=== PATIENT | female | born 1970 | race Caucasian/White ===

== ENCOUNTER 2016-12-01 07:44 | Emergency (ER) | payer MEDICARE, OTHER ==
[~2016-12-01] VITALS: Ht 157.5 cm; Wt 78.0 kg
[~2016-12-01 07:44] MED LIST: ADVA115A PO; ALBU0.086 INH; ALBU8I INH; LISI-363 PO; LORA1TAB PO; PRED20 PO; PRIL20CA PO; SERT100 PO; ZITHTAB6 PO
[2016-12-01 07:52] VITALS: BP 162/91; PULSE 128; RESP 20; TEMP 97.5; O2SAT 93
[2016-12-01 07:55] VITALS: BP 138/93; PULSE 120; RESP 25; TEMP 98; O2SAT 94
[2016-12-01] MEDS ORDERED: ALBU0.63 NEB (08:08)
[2016-12-01] MEDS ORDERED: PRIL10CA PO (08:08)
--- NOTE | 2016-12-01 08:11 | PD ---
HPI Chief Complaint: Respiratory Distress Time Seen by Provider: 08:08 Travel History International Travel<30 days: No Contact w/Intl Traveler<30days: No Traveled to known affect area: No History of Present Illness HPI This is a 46-year-old female with a history of COPD who presents to the emergency department with increasing shortness of breath for 2-3 days, constant , moderate severity associated with yellow sputum production and rhinorrhea. She denies any fevers or chills. She did use her albuterol at 6 AM but she's not feeling any better. She says she's been in the ICU in the past for her COPD but never on a ventilator. She uses oxygen intermittently when she feels sick at home. [facility] Past Medical History Anxiety: Yes Depression: Yes Cardiovascular Problems: Yes COPD: Yes Cerebrovascular Accident: Yes (pt states "right side def. and shaking, it was 20 years ago") Hypertension: Yes Respiratory: Yes (COPD) Immunizations Current: No ?: Unknown LMP: 11/24/16 : 3 Para: 3 Miscarriage: 0 : 0 Past Surgical History Cholecystectomy: Yes Other Surgery: Yes (hernia repair) Social History Alcohol Use: Yes (weekends 4 tallboys.) Tobacco Use: Yes (12/01 PPD) Substance Use: No Allergies-Medications (Allergen,Severity, Reaction): Coded Allergies: Levaquin (Verified Allergy, Severe, Anaphylaxis, 12/01/16) Reported Meds & Prescriptions Reported Meds & Active Scripts Active Reported Prilosec (Omeprazole) 10 Mg Cap 10 Mg PO DAILY Albuterol Neb (Albuterol Sulfate) 0.63 Mg/3 Ml Neb 0.63 Mg NEB Q4HR NEB PRN Review of Systems Except as stated in HPI: all other systems reviewed are Neg Physical Exam Narrative GENERAL:Well appearing, no acute distress SKIN: Warm and dry. HEAD: Atraumatic. Normocephalic. EYES: Pupils equal and round. No injection or drainage. ENT: Moist mucous membranes NECK: Trachea midline. CARDIOVASCULAR: Tachycardic. No murmur appreciated. RESPIRATORY: Diffusely wheezing, no accessory muscle use. Speaking full sentences. GASTROINTESTINAL: Abdomen soft, non-tender, nondistended. MUSCULOSKELETAL: No obvious deformities. NEUROLOGICAL: Awake and alert. No obvious cranial nerve deficits. Moving all extremities.. PSYCHIATRIC: Appropriate mood and affect; insight and judgment normal. Data Data Last Documented VS Vital Signs Date Time Temp Pulse Resp B/P Pulse Ox O2 Delivery O2 Flow Rate FiO2 12/01/16 07:55 98.0 120 25 138/93 94 12/01/16 07:55 Room Air Orders Prednisone (Deltasone) (12/01/16 08:15) Albuterol Neb (Albuterol Neb) (12/01/16 08:15) Influenzae A/B Antigen (12/01/16 08:09) MDM Medical Decision Making Medical Screen Exam Complete: Yes Emergency Medical Condition: Yes Interpretation(s) Afebrile, tachycardic, tachypneic, no hypoxia Differential Diagnosis COPD exacerbation, viral syndrome, pneumonia Narrative Course This is a 46-year-old female who presents to the emergency department with wheezing, rhinorrhea and productive cough. She has a history of oxygen- dependent COPD. She is placed on a monitor and administer and serial albuterol treatments and prednisone. She feels a little bit better. Her oxygen saturation is normal on room air. She is not complaining of any chest pain to suggest pulmonary embolism or pneumonia. I Think she is safe for discharge with treatment for COPD exacerbation. I urged her that if she feels worse throughout the day she should return to the emergency room. Diagnosis Primary Impression: Acute exacerbation of COPD with asthma Patient Instructions: General Instructions Additional Instructions: If you develop severe shortness of breath, chest pain, or difficulty breathing return to the emergency department. Use albuterol every 4 hours for the next 2 days. Then use as needed for wheezing. Complete your course of steroids. Complete your course of antibiotics. Follow up with your primary care physician in 2-3 days if your symptoms have not improved. Med/Other Pt SpecificInfo: Prescription(s) given Scripts Azithromycin (Zithromax Z-Bari)250 Mg [id number] Mg PO DIRECTED #1 DSPK Ref 0 500 MG (2 tabs) day 1, then 1 tab days 2-5. Prov:Yulia Torre MD 12/01/16 Albuterol Neb 2.5 Mg/3 Ml Neb2.5 Mg NEB Q4HR NEB PRN (SHORTNESS OF BREATH) #60 NEBULE Ref 0 Prov:Yulia Torre MD 12/01/16 Prednisone 20 Mg Tab40 Mg PO DAILY 4 Days Prov:Yulia Torre MD 12/01/16 Disposition: 01 DISCHARGE HOME Condition: Stable Yulia Torre MD Dec 01, 2016 08:11
[2016-12-01] MEDS ORDERED: predniSONE 50 MG TAB PO ONE (08:15)
[2016-12-01] MEDS: RESP: ALBUTEROL 2.5 MG/3 ML NEB (SCH) INH ×2 (08:24→08:25)
[2016-12-01 08:40] VITALS: BP 129/72; PULSE 106; RESP 16; O2SAT 97
[2016-12-01] MEDS ORDERED: ALBU0.08 NEB (09:25)
[2016-12-01] MEDS ORDERED: PRED20 PO (09:25)
[2016-12-01] MEDS ORDERED: ZITHTAB PO (09:25)
[2016-12-01] MEDS ORDERED: PROM6.256 PO (09:27)
[2016-12-01 09:40] VITALS: BP 138/73
== END 2016-12-01 09:46 | disposition home or self-care (01) ==
LOC: NEPC 07:44
DX: J44.1 Chronic obstructive pulmonary disease with (acute) exacerbation (principal); I10 Essential (primary) hypertension; F17.210 Nicotine dependence, cigarettes, uncomplicated
CPT/HCPCS: 87804; 94664; 99284; J7512; J7613

== ENCOUNTER 2017-04-04 00:13 | Emergency (ER) | payer MEDICARE, OTHER ==
[~2017-04-04] VITALS: Ht 157.5 cm; Wt 78.0 kg
[~2017-04-04 00:13] MED LIST changes: -ADVA115A PO; +ALBU0.08 NEB; -ALBU0.086 INH; +ALBU0.63 NEB; -ALBU8I INH; -LISI-363 PO; -LORA1TAB PO; +PRIL10CA PO; -PRIL20CA PO; +PROM6.256 PO; -SERT100 PO; +ZITHTAB PO; -ZITHTAB6 PO
[2017-04-04 00:20] VITALS: BP 184/74; PULSE 101; RESP 18; TEMP 98.4; O2SAT 97
[2017-04-04] MEDS ORDERED: OMEP40CA2 PO (00:29)
[2017-04-04] MEDS ORDERED: RESP: ALBUTEROL 2.5 MG/3 ML NEB (SCH) INH ONE (00:30)
[2017-04-04] MEDS ORDERED: SODIUM CHLOR 0.9% 1000 ML INJ 1,000 ML IV ONE (00:30)
--- NOTE | 2017-04-04 00:32 | PD ---
HPI Chief Complaint: Psychiatric Symptoms Time Seen by Provider: 00:18 Travel History International Travel<30 days: No Contact w/Intl Traveler<30days: No Traveled to known affect area: No History of Present Illness HPI 47-year-old female Patient arrives to the ER via EMS. She drank alcohol tonight. She argued with her family members. Police were called and on scene the patient verbalized suicidal ideation. She does not recall exactly how much she drank tonight however reports "a lot." In the ER she complains of shortness of breath. She has COPD and smokes and uses oxygen at home 2 L as needed. Police report similar prior episodes with the patient. EMS notes she had no complaint of dyspnea until time of arrival to ER room. [facility], [facility] Past Medical History Anxiety: Yes Depression: Yes Cardiovascular Problems: Yes COPD: Yes Cerebrovascular Accident: Yes (pt states "right side def. and shaking, it was 20 years ago") Hypertension: Yes Respiratory: Yes (COPD) Immunizations Current: No Influenza Vaccination: No ?: Not : 3 Para: 3 Miscarriage: 0 : 0 Tubal Ligation: Yes Past Surgical History Cholecystectomy: Yes Other Surgery: Yes (hernia repair) Social History Alcohol Use: Yes Tobacco Use: Yes (1/2 PPD) Substance Use: No Allergies-Medications (Allergen,Severity, Reaction): Coded Allergies: Levaquin (Verified Allergy, Severe, Anaphylaxis, 04/04/17) Reported Meds & Prescriptions Reported Meds & Active Scripts Active Albuterol Neb (Albuterol Sulfate) 2.5 Mg/3 Ml Neb 2.5 Mg NEB Q4HR NEB PRN Reported Omeprazole 40 Mg Cap 40 Mg PO DAILY Review of Systems ROS Limitations: Intoxication Physical Exam Narrative GENERAL: 47-year-old female EtOH on breath speaking full sentences SKIN: Focused skin assessment warm/dry. HEAD: Atraumatic. Normocephalic. EYES: Pupils equal and round. No scleral icterus. No injection or drainage. ENT: No nasal bleeding or discharge. Mucous membranes pink and moist. NECK: Trachea midline. No JVD. CARDIOVASCULAR: Tachycardia. Regular. RESPIRATORY: Trace wheezing. Speaking full sentences. GASTROINTESTINAL: Abdomen soft, non-tender, nondistended. Hepatic and splenic margins not palpable. MUSCULOSKELETAL: No obvious deformities. No clubbing. No cyanosis. No edema. NEUROLOGICAL: Awake and alert. No obvious cranial nerve deficits. Motor grossly within normal limits. Normal speech. PSYCHIATRIC: Patient is a Lazo act having verbalized suicidal ideation. She is cooperative w my exam with an alcohol intoxication affect. Data Data Last Documented VS Vital Signs Date Time Temp Pulse Resp B/P Pulse Ox O2 Delivery O2 Flow Rate FiO2 04/04/17 00:30 Nasal Cannula 2 97 04/04/17 00:20 98.4 101 18 184/74 97 Vital signs reviewed Orders Complete Blood Count With Diff (04/04/17:) Comprehensive Metabolic Panel (04/04/17:) Oximetry (04/04/17:) Iv Access Insert/Monitor (04/04/17:) Ecg Monitoring (04/04/17) Oxygen Administration (04/04/17) Psych Screen (04/04/17:) Drug Screen, Random Urine (04/04/17:) Alcohol (Ethanol) (04/04/17:) Tylenol (Acetaminophen) (04/04/17:) Chest, Single Ap (04/04/17:27) Albuterol Neb (Albuterol Neb) (04/04/17 00:30) Sodium Chlor 0.9% 1000 Ml Inj (Ns 1000 M (04/04/17 00:30) Prednisone (Deltasone) (04/04/17 01:30) Albuterol-Ipratropium Neb (Duoneb Neb) (04/04/17 01:30) Diet Regular Basic (04/04/17 Breakfast) Labs Laboratory Tests Test 04/04/17 00:30 White Blood Count 12.1 TH/MM3 Red Blood Count 5.08 MIL/MM3 Hemoglobin 11.5 GM/DL Hematocrit 36.5 % Mean Corpuscular Volume 72.0 FL Mean Corpuscular Hemoglobin 22.6 PG Mean Corpuscular Hemoglobin 31.4 % Concent Red Cell Distribution Width 18.5 % Platelet Count 323 TH/MM3 Mean Platelet Volume 7.7 FL Neutrophils (%) (Auto) 51.3 % Lymphocytes (%) (Auto) 41.5 % Monocytes (%) (Auto) 5.8 % Eosinophils (%) (Auto) 0.3 % Basophils (%) (Auto) 1.1 % Neutrophils # (Auto) 6.2 TH/MM3 Lymphocytes # (Auto) 5.0 TH/MM3 Monocytes # (Auto) 0.7 TH/MM3 Eosinophils # (Auto) 0.0 TH/MM3 Basophils # (Auto) 0.1 TH/MM3 CBC Comment AUTO DIFF Differential Comment AUTO DIFF CONFIRMED Platelet Estimate NORMAL Platelet Morphology Comment NORMAL Target Cells 1+ Sodium Level 135 MEQ/L Potassium Level 4.0 MEQ/L Chloride Level 97 MEQ/L Carbon Dioxide Level 24.7 MEQ/L Anion Gap 13 MEQ/L Blood Urea Nitrogen 5 MG/DL Creatinine 0.69 MG/DL Estimat Glomerular Filtration 92 ML/MIN Rate Random Glucose 96 MG/DL Calcium Level 9.1 MG/DL Total Bilirubin 0.2 MG/DL Aspartate Amino Transf 29 U/L (AST/SGOT) Alanine Aminotransferase 25 U/L (ALT/SGPT) Alkaline Phosphatase 108 U/L Total Protein 7.5 GM/DL Albumin 3.5 GM/DL Urine Opiates Screen NEG Acetaminophen Level LESS THAN 2.0 MCG/ML Urine Barbiturates Screen NEG Urine Amphetamines Screen NEG Urine Benzodiazepines Screen NEG Urine Cocaine Screen NEG Urine Cannabinoids Screen NEG Ethyl Alcohol Level 376 MG/DL [facility] Medical Decision Making Medical Screen Exam Complete: Yes Emergency Medical Condition: Yes Medical Record Reviewed: Yes Differential Diagnosis Altered mental status/psychosis due to infection/environmental exposure/ metabolic abnormality, polypharmacy, alcohol abuse/intoxication, illicit or prescribed drug abuse, malingering/secondary gain, non-organic psychiatric disease, COPD, pneumonia Narrative Course Routine psychiatry screen bloodwork pending at time of dictation. One albuterol treatment ordered for fairly mild dyspnea w hx COPD. O2 NC started. CXR pending. Likely should improve after 1 neb. CBC & BMP Diagram 04/04/17 00:30 Last 24 hours Impressions Chest X-Ray 04/04/17 0027 Signed Impressions: Service Date/Time: Tuesday, April 04, 2017 00:48 - CONCLUSION: No acute disease. Elier Artis MD Alcohol level is about 330 Drug screen negative Tylenol since late negative The history of present illness, ROS, physical exam, review of records and medical workup performed for today's visit have reasonably safely excluded organic etiologies for the patient's presenting complaint. We will continue to monitor the patient carefully in the ER until time of evaluation by the psychiatry service. We are available for any additional medical assistance if needed during the patient's ER course. Disposition per discretion of psychiatry is appreciated. Diagnosis Primary Impression: Suicidal ideation Additional Impression: Alcohol intoxication Qualified Code: F10.929 - Alcohol intoxication, with unspecified complication Guillermo Rubin MD April 04, 2017 00:32
[2017-04-04 00:57] LABS: AUTOMATED NEUTROPHIL # 6.2 TH/MM3 (1.8-7.7); BASOPHIL # 0.1 TH/MM3 (0-0.2); BASOPHIL % 1.1 % (0.0-2.0); EOSINOPHIL % 0.3 % (0.0-4.0); HEMATOCRIT 36.5 % (35.0-46.0); LYMPH % 41.5 % (9.0-44.0); MEAN CORPUSCULAR HEMOGLOBIN 22.6 PG (27.0-34.0); MEAN CORPUSCULAR HGB CONC 31.4 % (32.0-36.0); MONO % 5.8 % (0.0-8.0); NEUT % 51.3 % (16.0-70.0); PLATELET COUNT 323 TH/MM3 (150-450); RED BLOOD COUNT 5.08 MIL/MM3 (4.00-5.30); RED CELL DISTRIBUTION WIDTH 18.5 % (11.6-17.2); WHITE BLOOD COUNT 12.1 TH/MM3 (4.0-11.0)
[2017-04-04 01:03] LABS: AMPHETAMINE, URINE NEG (NEG); BARBITURATES, URINE NEG (NEG); COCAINE, URINE NEG (NEG)
[2017-04-04 01:13] LABS: HEMO FLAGS AUTO DIFF
[2017-04-04 01:14] LABS: ALT (GPT) 25 U/L (10-53); ANION GAP 13 MEQ/L (5-15); AST (GOT) 29 U/L (15-37); BICARBONATE 24.7 MEQ/L (21.0-32.0); BLOOD UREA NITROGEN 5 MG/DL (7-18); CHLORIDE 97 MEQ/L (98-107); GLOMERULAR FILTRATION RATE 92 ML/MIN (>89); SODIUM (NA) 135 MEQ/L (136-145)
[2017-04-04 01:16] LABS: ACETAMINOPHEN LESS THAN 2.0 MCG/ML (10.0-30.0); ALKALINE PHOSPHATASE 108 U/L (45-117); TOTAL BILIRUBIN ADULT 0.2 MG/DL (0.2-1.0)
--- NOTE | 2017-04-04 01:17 | RADRPT ---
EXAM DATE/TIME: 04/04/2017 00:48 [facility] COMPARISON: CHEST SINGLE AP, September 14, 2016, 18:19. INDICATIONS : Patient states cough. MEDICAL HISTORY : Chronic obstructive pulmonary disease. Stroke SURGICAL HISTORY : None. ENCOUNTER: Initial ACUITY: 1 day PAIN SCORE: 0/10 LOCATION: Bilateral chest FINDINGS: A single view of the chest demonstrates the lungs to be symmetrically aerated without evidence of mas s, infiltrate or effusion. The cardiomediastinal contours are unremarkable. Osseous structures are intact. CONCLUSION: No acute disease. Elier Artis MD on April 04, 2017 at 1:15 Board Certified Radiologist. This report was verified electronically.
[2017-04-04] MEDS ORDERED: predniSONE 20 MG TAB PO ONE (01:30)
[2017-04-04] MEDS ORDERED: RESP: ALBUTEROL 2.5 MG/IPRATROPIUM 0.5 MG NEB (SCH) INH ONE (01:30)
[2017-04-04 01:40] LABS: PLATELET ESTIMATE SMEAR NORMAL (NORMAL); PLATELET MORPHOLOGY NORMAL (NORMAL); SCAN/DIFF AUTO DIFF CONFIRMED; TARGET CELLS 1+ (NORMAL)
--- NOTE | 2017-04-04 11:55 | MB ---
cc: JAMIE MAURICE DATE OF CONSULTATION: 04/04/2017 PHYSICIAN REQUESTING CONSULTATION Emergency department REASON FOR CONSULTATION Lazo Act. HISTORY OF PRESENT ILLNESS Ms. Fox is a 47-year-old female with a reported history of anxiety and depression who presents under a Lazo Act after allegedly making suicidal statements in the setting of alcohol intoxication. The patient's alcohol level on presentation here was 376. Reviewing the electronic medical record, I see that the patient was seen in consultation by the psychiatric nurse practitioner in July of 2016 under similar circumstances and the Lazo Act was lifted at that time. The patient seen and examined. Chart reviewed. Case discussed with nurse in the [facility]. On my examination this morning the patient is clinically sober. She denies any suicidal or homicidal ideation, intent or plan. She reports that she was arguing with her daughter's boyfriend with whom she lives about the electric bill. They were both drinking and the argument escalated. She tells me that she said "I would rather be than deal with this fucking bullshit." She denies that this was a genuine suicidal threat. She denies suicidal ideation now as I said. She does report a history of anxiety and depression and reports that her anxiety level has been fairly high lately although her mood has not been terribly unstable. She reports that she is sleeping and eating well. No hopeless or worthless feelings. No anhedonia. No homicidal ideation. Wants to live for her daughters and grandson. Denies any audiovisual hallucinations and I can elicit no delusional beliefs. She is future oriented. Remainder of the psychiatric ROS is negative. The patient is requesting discharge from the emergency room this morning. PAST PSYCHIATRIC HISTORY Diagnosis of anxiety and depression. Not under the care of a psychiatrist. Denies a history of psychiatric admissions or suicide attempts. FAMILY HISTORY The patient denies any family history of suicide. Reports depression and anxiety in her mother and father. CHEMICAL DEPENDENCY HISTORY The patient reports daily alcohol use. She drinks a four-pack of tallboys daily. Denies any history of DTs or seizures. No other substance use. She is not interested in detoxification or rehabilitation services at this time. SOCIAL HISTORY She is with three children and one grandson. Twelfth grade education. Disabled. Denies any or legal history. Denies any access to guns or firearms. PAST MEDICAL HISTORY See electronic medical record. REVIEW OF SYSTEMS No reported physical complaints. PHYSICAL EXAMINATION VITAL SIGNS: Temperature is 98.4, pulse 101, respirations 18, blood pressure 184/74, pulse oximetry 97%. Physical exam completed by the ED provider. On my examination today, the patient appears to be in no acute physical distress. No signs of withdrawal noted. She is clinically sober. LABORATORIES Reviewed. MENTAL STATUS EXAMINATION The patient is in a hospital gown. She is well-groomed. She is awake, alert and oriented x3. No abnormal motor movements noted. No evidence of delirium. Speech is within normal limits for rate, tone and volume. Language and fund of knowledge seem average. Mood is fair but anxious and affect is full and reactive. Thought process linear. No loosening of associations. No evident delusions. Denies audiovisual hallucinations. Denies suicidal or homicidal ideation. Insight and judgment are fair at best. ASSESSMENT AND PLAN 1. Alcohol dependence with intoxication, intoxication resolved, F10.220. This is a 47-year-old female with psychiatric history as detailed above who presents under a Lazo Act after making suicidal statements in the setting of intoxication while arguing with her daughter's boyfriend. On my examination this morning the patient is clinically sober. She denies suicidal or homicidal ideation. Appears to be attending to her basic needs. No evidence of any severely unstable mood, anxiety or psychotic disorder in this patient at this time. The patient is not interested in detoxification services. The main issue at this point seems to be substance related. The patient does not meet Lazo Act criteria after weighing relevant factors. Lift the Lazo Act. I have counseled the patient to pursue chemical dependency evaluation and treatment. I have counseled the patient regarding warning signs for need to return to the psychiatric emergency room as part of a general safety plan. The patient is otherwise psychiatrically clear for discharge from the ED. Thank you very much for this consultation. Jamie ESCALANTE 8:24 AM 11:30 AM [facility]
== END 2017-04-04 10:57 | disposition home or self-care (01) ==
LOC: NEPD 00:13
DX: R45.851 Suicidal ideations (principal); F10.129 Alcohol abuse with intoxication, unspecified; R06.02 Shortness of breath; J44.9 Chronic obstructive pulmonary disease, unspecified; I10 Essential (primary) hypertension; F17.210 Nicotine dependence, cigarettes, uncomplicated
CPT/HCPCS: 71010; 80053; 80307; 85025; 94640; 94664; 96360; 99285; J7030; J7512; J7613

== ENCOUNTER 2017-06-13 05:49 | Emergency (ER) | payer MEDICARE, OTHER ==
[~2017-06-13 05:49] MED LIST changes: -ALBU0.63 NEB; +OMEP40CA2 PO; -PRED20 PO; -PRIL10CA PO; -PROM6.256 PO; -ZITHTAB PO
[2017-06-13 05:51] VITALS: BP 169/106; PULSE 120; RESP 18; TEMP 98.8; O2SAT 95
--- NOTE | 2017-06-13 06:11 | PD ---
HPI Chief Complaint: Respiratory Symptoms Time Seen by Provider: 05:58 Travel History International Travel<30 days: No Contact w/Intl Traveler<30days: No Traveled to known affect area: No History of Present Illness HPI 47-year-old female states that she's been having nonbloody vomiting and diarrhea with shortness of breath, sore throat, nasal congestion, earache and fever over the past couple days. She states her fever was 102. She states she took Motrin shortly prior to arrival. She states she is out of her blood pressure medication and inhalers. She states she lost her primary. She feels worse when she moves around. She denies any other modifying factors. She denies any other concurrent complaints. She notes multiple episodes of emesis and diarrhea. [facility] Past Medical History Narrative Medical By records Anxiety: Yes Depression: Yes Cardiovascular Problems: Yes COPD: Yes Cerebrovascular Accident: Yes (pt states "right side def. and shaking, it was 20 years ago") Hypertension: Yes Respiratory: Yes (COPD) Immunizations Current: No ?: Not LMP: 05/19/17 : 3 Para: 3 Miscarriage: 0 : 0 Tubal Ligation: Yes Past Surgical History Narrative Surgical By records Cholecystectomy: Yes Other Surgery: Yes (hernia repair) Social History Narrative Social History By records Alcohol Use: Yes (rare) Tobacco Use: Yes (1/2 PPD) Substance Use: No Allergies-Medications (Allergen,Severity, Reaction): Coded Allergies: Levaquin (Verified Allergy, Severe, Anaphylaxis, 06/13/17) Reported Meds & Prescriptions Reported Meds & Active Scripts Active Albuterol Neb (Albuterol Sulfate) 2.5 Mg/3 Ml Neb 2.5 Mg NEB Q4HR NEB PRN Reported Omeprazole 40 Mg Cap 40 Mg PO DAILY Review of Systems Except as stated in HPI: all other systems reviewed are Neg Physical Exam Narrative General: No apparent distress, well appearing ENT: mmm, external auditory canals are normal. Left TM with erythema Neck: Neck is supple, no meningeal signs, trachea is midline Cardiovascular: Regular rate and rhythm Lungs: No increased respiratory effort noted, expiratory wheezing bilaterally Abdomen: Soft, NT, ND, no rebound or guarding Extremities: No edema Neuro: Awake, motor and sensation grossly intact, normal speech Data Data Last Documented VS Vital Signs Date Time Temp Pulse Resp B/P Pulse Ox O2 Delivery O2 Flow Rate FiO2 06/13/17 06:01 20 94 Room Air 06/13/17 05:51 98.8 120 169/106 Orders Complete Blood Count With Diff (06/13/17 06:02) Basic Metabolic Panel (Bmp) (06/13/17 06:02) Magnesium (Mg) (06/13/17 06:02) Influenzae A/B Antigen (06/13/17 06:02) Iv Access Insert/Monitor (06/13/17 06:02) Ecg Monitoring (06/13/17 06:02) Oximetry (06/13/17 06:02) Chest, Pa & Lat (06/13/17 06:02) Sodium Chloride 0.9% Flush (Ns Flush) (06/13/17 06:15) Methylprednisolone So Succ Inj (Solumedr (06/13/17 06:15) Albuterol-Ipratropium Neb (Duoneb Neb) (06/13/17 06:15) Sodium Chlor 0.9% 1000 Ml Inj (Ns 1000 M (06/13/17 06:15) Ondansetron Inj (Zofran Inj) (06/13/17 06:15) Lactic Acid (06/13/17 06:02) Potassium Chloride Eff (K-Lyte Cl Eff) (06/13/17 07:00) Labs Laboratory Tests Test 06/13/17 06/13/17 06:09 06:36 White Blood Count 14.2 TH/MM3 Red Blood Count 4.98 MIL/MM3 Hemoglobin 11.2 GM/DL Hematocrit 35.4 % Mean Corpuscular Volume 71.1 FL Mean Corpuscular Hemoglobin 22.5 PG Mean Corpuscular Hemoglobin 31.7 % Concent Red Cell Distribution Width 16.9 % Platelet Count 276 TH/MM3 Mean Platelet Volume 8.1 FL Neutrophils (%) (Auto) 66.3 % Lymphocytes (%) (Auto) 25.7 % Monocytes (%) (Auto) 6.8 % Eosinophils (%) (Auto) 0.6 % Basophils (%) (Auto) 0.6 % Neutrophils # (Auto) 9.4 TH/MM3 Lymphocytes # (Auto) 3.6 TH/MM3 Monocytes # (Auto) 1.0 TH/MM3 Eosinophils # (Auto) 0.1 TH/MM3 Basophils # (Auto) 0.1 TH/MM3 CBC Comment DIFF FINAL Differential Comment Sodium Level 134 MEQ/L Potassium Level 3.1 MEQ/L Chloride Level 98 MEQ/L Carbon Dioxide Level 23.6 MEQ/L Anion Gap 12 MEQ/L Blood Urea Nitrogen 6 MG/DL Creatinine 0.84 MG/DL Estimat Glomerular Filtration 73 ML/MIN Rate Random Glucose 100 MG/DL Calcium Level 9.0 MG/DL Magnesium Level 1.5 MG/DL Lactic Acid Level 1.7 mmol/L MDM Medical Decision Making Medical Screen Exam Complete: Yes Emergency Medical Condition: Yes Medical Record Reviewed: Yes (past history confirmed) Differential Diagnosis COPD exacerbation, renal failure, electrolyte abnormality, influenza, pneumonia Narrative Course Will check blood work, chest x-ray, influenza and dose with DuoNeb's, Solu- Medrol, Zofran and IV fluids and reevaluate Physician Communication Physician Communication dr baird to follow labs and reeval Penelope Ribeiro MD Jun 13, 2017 06:11
[2017-06-13] MEDS ORDERED: SODIUM CHLORIDE 0.9% FLUSH 10 ML FLUSH IVF PRN (06:15)
[2017-06-13] MEDS ORDERED: ONDANSETRON HCL 4 MG/2 ML VIAL IV PUSH ONE (06:15)
[2017-06-13] MEDS ORDERED: methylPREDNISolone SOD SUCC 125 MG/2 ML VIAL IVP ONE (06:15)
[2017-06-13] MEDS ORDERED: SODIUM CHLOR 0.9% 1000 ML INJ 1,000 ML IV ONE (06:15)
[2017-06-13] MEDS: RESP: ALBUTEROL 2.5 MG/IPRATROPIUM 0.5 MG NEB (SCH) INH ×2 (06:21→06:22)
[2017-06-13 06:31] LABS: AUTOMATED NEUTROPHIL # 9.4 TH/MM3 (1.8-7.7); BASOPHIL # 0.1 TH/MM3 (0-0.2); BASOPHIL % 0.6 % (0.0-2.0); EOSINOPHIL # 0.1 TH/MM3 (0-0.4); EOSINOPHIL % 0.6 % (0.0-4.0); HEMATOCRIT 35.4 % (35.0-46.0); HEMO FLAGS DIFF FINAL; LYMPH % 25.7 % (9.0-44.0); LYMPHOCYTE # 3.6 TH/MM3 (1.0-4.8); MEAN CELL VOLUME 71.1 FL (80.0-100.0); MEAN CORPUSCULAR HEMOGLOBIN 22.5 PG (27.0-34.0); MEAN CORPUSCULAR HGB CONC 31.7 % (32.0-36.0); MONO % 6.8 % (0.0-8.0); NEUT % 66.3 % (16.0-70.0); PLATELET COUNT 276 TH/MM3 (150-450); RED BLOOD COUNT 4.98 MIL/MM3 (4.00-5.30); RED CELL DISTRIBUTION WIDTH 16.9 % (11.6-17.2); WHITE BLOOD COUNT 14.2 TH/MM3 (4.0-11.0)
--- NOTE | 2017-06-13 06:36 | RADRPT ---
EXAM DATE/TIME: 06/13/2017 06:16 [facility] COMPARISON: CHEST SINGLE AP, April 04, 2017, 0:48. INDICATIONS : Shortness of breath. MEDICAL HISTORY : Chronic obstructive pulmonary disease. Hypertension SURGICAL HISTORY : None. ENCOUNTER: Initial ACUITY: 1 day PAIN SCORE: 0/10 LOCATION: Bilateral chest FINDINGS: PA and lateral views of the chest demonstrate the lungs to be symmetrically aerated without evidence of mass, infiltrate or effusion. The cardiomediastinal contours are unremarkable. Osseous structure s are intact. CONCLUSION: No acute disease. Kobe Willis MD on June 13, 2017 at 6:35 Board Certified Radiologist. This report was verified electronically.
[2017-06-13 06:55] LABS: BICARBONATE 23.6 MEQ/L (21.0-32.0); MAGNESIUM 1.5 MG/DL (1.5-2.5); POTASSIUM 3.1 MEQ/L (3.5-5.1)
[2017-06-13 07:00] VITALS: O2SAT 88
[2017-06-13] MEDS ORDERED: POTASSIUM CHLORIDE 25 MEQ EFFERVESCENT TAB PO ONE (07:00)
[2017-06-13] MEDS ORDERED: PRED50 PO (09:44)
[2017-06-13] MEDS ORDERED: ZITHTAB PO (09:44)
[2017-06-13] MEDS ORDERED: ALBU6.7H INH (09:44)
--- NOTE | 2017-06-13 09:44 | PD ---
Physical Exam Date Seen by Provider: Jun 13, 2017 Time Seen by Provider: 07:00 Narrative Patient initially seen by Dr. Ribeiro, please see Dr. Ribeiro's note for further information. Awaiting workup. Laboratory Tests Test 06/13/17 06:09 White Blood Count 14.2 TH/MM3 (4.0-11.0) Hemoglobin 11.2 GM/DL (11.6-15.3) Mean Corpuscular Volume 71.1 FL (80.0-100.0) Mean Corpuscular Hemoglobin 22.5 PG (27.0-34.0) Mean Corpuscular Hemoglobin 31.7 % Concent (32.0-36.0) Neutrophils # (Auto) 9.4 TH/MM3 (1.8-7.7) Monocytes # (Auto) 1.0 TH/MM3 (0-0.9) Sodium Level 134 MEQ/L (136-145) Potassium Level 3.1 MEQ/L (3.5-5.1) Blood Urea Nitrogen 6 MG/DL (7-18) Estimat Glomerular Filtration 73 ML/MIN (>89) Rate Last 24 hours Impressions Chest X-Ray 06/13/17 0602 Signed Impressions: Service Date/Time: Tuesday, June 13, 2017 06:16 - CONCLUSION: No acute disease. Kobe Willis MD Chest x-ray did not show any signs of obvious acute pulmonary processes. Lab work shows a white count of 14. On reevaluation at 9:30 AM, the patient is feeling improved and have talked her about findings and have offered to admit her to the hospital as an observation versus outpatient therapy. Patient states that she is feeling much improved and would prefer outpatient therapy at this point. She states that she had ran out of her nebulizers at home. My plan would be to refill her nebulizers and have her follow-up with primary care physician. Return for worsening in symptoms as necessary. The plan has been discussed with her and she states understanding. Data Data Last Documented VS Vital Signs Date Time Temp Pulse Resp B/P Pulse Ox O2 Delivery O2 Flow Rate FiO2 06/13/17 07:00 88 Room Air 06/13/17 06:01 20 06/13/17 05:51 98.8 120 169/106 Orders Complete Blood Count With Diff (06/13/17 06:02) Basic Metabolic Panel (Bmp) (06/13/17 06:02) Magnesium (Mg) (06/13/17 06:02) Influenzae A/B Antigen (06/13/17 06:02) Iv Access Insert/Monitor (06/13/17 06:02) Ecg Monitoring (06/13/17 06:02) Oximetry (06/13/17 06:02) Chest, Pa & Lat (06/13/17 06:02) Sodium Chloride 0.9% Flush (Ns Flush) (06/13/17 06:15) Methylprednisolone So Succ Inj (Solumedr (06/13/17 06:15) Albuterol-Ipratropium Neb (Duoneb Neb) (06/13/17 06:15) Sodium Chlor 0.9% 1000 Ml Inj (Ns 1000 M (06/13/17 06:15) Ondansetron Inj (Zofran Inj) (06/13/17 06:15) Lactic Acid (06/13/17 06:02) Potassium Chloride Eff (K-Lyte Cl Eff) (06/13/17 07:00) Labs Laboratory Tests Test 06/13/17 06/13/17 06:09 06:36 White Blood Count 14.2 TH/MM3 Red Blood Count 4.98 MIL/MM3 Hemoglobin 11.2 GM/DL Hematocrit 35.4 % Mean Corpuscular Volume 71.1 FL Mean Corpuscular Hemoglobin 22.5 PG Mean Corpuscular Hemoglobin 31.7 % Concent Red Cell Distribution Width 16.9 % Platelet Count 276 TH/MM3 Mean Platelet Volume 8.1 FL Neutrophils (%) (Auto) 66.3 % Lymphocytes (%) (Auto) 25.7 % Monocytes (%) (Auto) 6.8 % Eosinophils (%) (Auto) 0.6 % Basophils (%) (Auto) 0.6 % Neutrophils # (Auto) 9.4 TH/MM3 Lymphocytes # (Auto) 3.6 TH/MM3 Monocytes # (Auto) 1.0 TH/MM3 Eosinophils # (Auto) 0.1 TH/MM3 Basophils # (Auto) 0.1 TH/MM3 CBC Comment DIFF FINAL Differential Comment Sodium Level 134 MEQ/L Potassium Level 3.1 MEQ/L Chloride Level 98 MEQ/L Carbon Dioxide Level 23.6 MEQ/L Anion Gap 12 MEQ/L Blood Urea Nitrogen 6 MG/DL Creatinine 0.84 MG/DL Estimat Glomerular Filtration 73 ML/MIN Rate Random Glucose 100 MG/DL Calcium Level 9.0 MG/DL Magnesium Level 1.5 MG/DL Lactic Acid Level 1.7 mmol/L [facility] Medical Record Reviewed: Yes Supervised Visit with CELIO: No Diagnosis Primary Impression: Bronchitis Med/Other Pt SpecificInfo: Prescription(s) given Scripts Azithromycin (Zithromax Z-Bari)250 Mg [id number] Mg PO DIRECTED #1 DSPK Ref 0 500 MG (2 tabs) day 1, then 1 tab days 2-5. Prov:Ervin Chua MD 06/13/17 Albuterol 6.7 GM Inh (Proventil Hfa 6.7 GM Inh)90 Mcg/Act Aer2 Puff INH Q4-6H PRN (SHORTNESS OF BREATH) #1 INHALER Ref 0 Prov:Ervin Chua MD 06/13/17 Prednisone 50 Mg Tab50 Mg PO DAILY #3 TAB Ref 0 Prov:Ervin Chua MD 06/13/17 Disposition: 01 DISCHARGE HOME Condition: Stable Ervin Chua MD Jun 13, 2017 09:44
== END 2017-06-13 10:00 | disposition home or self-care (01) ==
LOC: NEPC 05:49
DX: J44.9 Chronic obstructive pulmonary disease, unspecified (principal); I10 Essential (primary) hypertension; F17.200 Nicotine dependence, unspecified, uncomplicated; R11.10 Vomiting, unspecified; R19.7 Diarrhea, unspecified
CPT/HCPCS: 71020; 80048; 83605; 83735; 85025; 87804; 94640; 94664; 96361; 96374; 96375; 99285; J2405; J2930; J7030

== ENCOUNTER 2017-06-15 15:53 | Emergency (ER) | payer MEDICARE, OTHER ==
[~2017-06-15] VITALS: Ht 157.5 cm; Wt 85.0 kg
[~2017-06-15 15:53] MED LIST changes: +ALBU6.7H INH; +PRED50 PO; +ZITHTAB PO
[2017-06-15 15:57] VITALS: BP 147/92; PULSE 131; RESP 18; TEMP 98.9; O2SAT 97
--- NOTE | 2017-06-15 16:17 | PD ---
HPI . b/l ear drainage x 3 days Chief Complaint: ENT Complaint Time Seen by Provider: 16:09 Travel History International Travel<30 days: No Contact w/Intl Traveler<30days: No Traveled to known affect area: No History of Present Illness HPI 47 yr old female who was seen a few days ago and told she has inner ear infection here with c/o ear drainage bilaterally. She denies any exposure to swimming. She denies using q tips. She has not had difficulty hearing. Denies any fever or chills. PFSH Past Medical History Anxiety: Yes Depression: Yes Cardiovascular Problems: Yes (HTN) COPD: Yes Cerebrovascular Accident: Yes ("YEARS AGO" RIGHT SIDED WEAKNESS FROM IT) Hypertension: Yes Immunizations Current: No ?: Not LMP: 05/16/17 : 3 Para: 3 Miscarriage: 0 : 0 Tubal Ligation: Yes Past Surgical History Cholecystectomy: Yes Other Surgery: Yes (hernia repair) Social History Alcohol Use: Yes (rare) Tobacco Use: Yes (1/2 PPD) Substance Use: No Allergies-Medications (Allergen,Severity, Reaction): Coded Allergies: Levaquin (Verified Allergy, Severe, Anaphylaxis, 06/15/17) Reported Meds & Prescriptions Reported Meds & Active Scripts Active Bngpcvfm-Czculaspy-UN Otic Drops 3.5-10,000-1 Mg-Units-% Soln 4 Drop LEFT EAR QID 7 Days Zithromax Z-Bari (Azithromycin) 250 Mg Dspk 250 Mg PO DIRECTED 500 MG (2 tabs) day 1, then 1 tab days 2-5. Proventil Hfa 6.7 GM Inh (Albuterol Sulfate) 90 Mcg/Act Aer 2 Puff INH Q4-6H PRN Prednisone 50 Mg Tab 50 Mg PO DAILY Albuterol Neb (Albuterol Sulfate) 2.5 Mg/3 Ml Neb 2.5 Mg NEB Q4HR NEB PRN Reported Omeprazole 40 Mg Cap 40 Mg PO DAILY Review of Systems General / Constitutional: No: Fever Eyes: No: Visual changes HENT: Positive: Ear Discharge, No: Headaches Cardiovascular: No: Chest Pain or Discomfort Respiratory: No: Shortness of Breath Gastrointestinal: No: Abdominal Pain Genitourinary: No: Dysuria Musculoskeletal: No: Pain Skin: No Rash Neurologic: No: Weakness Psychiatric: No: Depression Endocrine: No: Polydipsia Hematologic/Lymphatic: No: Easy Bruising Physical Exam Narrative GENERAL: AAO x 3, no acute distress, Well-nourished, well-developed patient. SKIN: Warm and dry. No visible rashes or bruising. HEAD: Normocephalic and atraumatic. EYES: No scleral icterus. No injection or drainage. EOM intact, PERRLA ENT: No nasal drainage noted. Mucous membranes pink. Airway patent. B/L ear canal with slightly purulent drainage, no ruputure of TM visualized NECK: Supple, trachea midline. No JVD. no lymphadenopathy CARDIOVASCULAR: Regular rate and rhythm without murmurs, gallops, or rubs. RESPIRATORY: Breath sounds equal bilaterally. No accessory muscle use. No rhonchi or rales. HR on exam 110 GASTROINTESTINAL: Abdomen soft, non-tender, nondistended. EXTREMITIES: No cyanosis or edema. BACK: No obvious deformity. NEURO: CN II-12 intact, PSYCH: AAO x 3, normal affect. Data Data Last Documented VS Vital Signs Date Time Temp Pulse Resp B/P Pulse Ox O2 Delivery O2 Flow Rate FiO2 06/15/17 16:29 101 06/15/17 16:15 18 06/15/17 15:57 98.9 147/92 97 Orders Wound Culture And Gram Stain (06/15/17 16:19) MDM Medical Decision Making Medical Screen Exam Complete: Yes Emergency Medical Condition: Yes Medical Record Reviewed: Yes Differential Diagnosis Otitis externa, otitis media, sinusitis, TM rupture Narrative Course 47 yr old female currently being treated for OM now here with ear drainage. She appears to also have b/l OE. Culture taken. Ear drops Rx provided. Advised to continue abx until complete (she is still on them). Advised to return for any worsening. Patient verbalized understanding of instructions, questions were answered, and thanked me for their care. I advised them if their condition worsens, please return to the nearest emergency room for further care. Diagnosis Primary Impression: Otitis externa Qualified Code: H60.393 - Other infective acute otitis externa of both ears Additional Impressions: Left otitis media Qualified Code: H66.002 - Acute suppurative otitis media of left ear without spontaneous rupture of tympanic membrane, recurrence not specified Otitis media, right Qualified Code: H66.001 - Acute suppurative otitis media of right ear without spontaneous rupture of tympanic membrane, recurrence not specified Patient Instructions: General Instructions Additional Instructions: Please return to emergency department if your symptoms return or worsen. Follow up with your primary care provider. Take medications as prescribed. Do not stick any foreign objects into your ears. Follow-up with your primary care provider. If your symptoms persist, please see an teacher early childhood development. Med/Other Pt SpecificInfo: Prescription(s) given Scripts Inzxrzvk-Htegynomn-IN Otic Drops 3.5-10,000-1 Mg-Units-% Soln4 Drop LEFT EAR QID 7 Days Ref 0 Prov:Esdras Goldberg MD 06/15/17 Disposition: 01 DISCHARGE HOME Condition: Stable Sarah Mike Jun 15, 2017 16:17
[2017-06-15] MEDS ORDERED: NEOM1SOL7 LEFT EAR (16:18)
[2017-06-15 16:29] VITALS: PULSE 101
== END 2017-06-15 16:52 | disposition home or self-care (01) ==
LOC: NEPK 15:53
DX: H60.393 Other infective otitis externa, bilateral (principal); H66.003 Acute suppurative otitis media without spontaneous rupture of ear drum, bilateral; B96.3 Hemophilus influenzae [H. influenzae] as the cause of diseases classified elsewhere; F17.200 Nicotine dependence, unspecified, uncomplicated
CPT/HCPCS: 87070; 87077; 87184; 87185; 87205; 99283

== ENCOUNTER 2017-09-25 20:39 | Emergency (ER) | payer MEDICARE, OTHER ==
[~2017-09-25] VITALS: Ht 157.5 cm; Wt 81.0 kg
[~2017-09-25 20:39] MED LIST changes: +NEOM1SOL7 LEFT EAR
[2017-09-25 20:56] VITALS: BP 166/80; PULSE 110; RESP 15; O2SAT 99
[2017-09-25 21:57] VITALS: BP 152/75; PULSE 90; RESP 18; O2SAT 95
--- NOTE | 2017-09-25 22:26 | PD ---
HPI Chief Complaint: Alcohol/Drug Intoxication Time Seen by Provider: 21:48 Travel History International Travel<30 days: No Contact w/Intl Traveler<30days: No Traveled to known affect area: No History of Present Illness HPI STATED TAHT 2 DAYS AGO SHE FELL AND HIT HER HEAD, C/O HEADACHE, 05/09, NO N/V/ HOWEVER SHE DID NOT SEEK CARE THEN......BUT TODAY SHE STILL FEELS HEAD THROBBING SO CAME FOR REEVALUATION...PATIENT DID STATE THAT BACK THEN NOW SHE HAD BEEN DRINKING ALCOHOL. denies any alleviating/aggravating factors. denies assoc factors : loc, n/v/d/cp/abdpain/fever/ PFSH Past Medical History Anxiety: Yes Depression: Yes Cardiovascular Problems: Yes (HTN) COPD: Yes Cerebrovascular Accident: Yes ("YEARS AGO" RIGHT SIDED WEAKNESS FROM IT) Hypertension: Yes Respiratory: Yes (COPD) Immunizations Current: No Tetanus Vaccination: < 5 Years Influenza Vaccination: Yes ?: Not : 3 Para: 3 Miscarriage: 0 : 0 Tubal Ligation: Yes Past Surgical History Cholecystectomy: Yes Hysterectomy: Yes Other Surgery: Yes (hernia repair) Social History Alcohol Use: Yes (RARELY) Tobacco Use: Yes (12/03 PPD) Substance Use: No Allergies-Medications (Allergen,Severity, Reaction): Coded Allergies: levofloxacin (Unverified Allergy, Severe, Anaphylaxis, 07/14/17) Reported Meds & Prescriptions Reported Meds & Active Scripts Active Hmfhnmoe-Yvapbqwhg-DC Otic Drops 3.5-10,000-1 Mg-Units-% Soln 4 Drop LEFT EAR QID 7 Days Zithromax Z-Bari (Azithromycin) 250 Mg Dspk 250 Mg PO DIRECTED 500 MG (2 tabs) day 1, then 1 tab days 2-5. Proventil Hfa 6.7 GM Inh (Albuterol Sulfate) 90 Mcg/Act Aer 2 Puff INH Q4-6H PRN Prednisone 50 Mg Tab 50 Mg PO DAILY Albuterol Neb (Albuterol Sulfate) 2.5 Mg/3 Ml Neb 2.5 Mg NEB Q4HR NEB PRN Reported Omeprazole 40 Mg Cap 40 Mg PO DAILY Review of Systems ROS Limitations: Intoxication Except as stated in HPI: all other systems reviewed are Neg General / Constitutional: No: Fever Eyes: No: Visual changes HENT: Positive: Headaches Cardiovascular: No: Chest Pain or Discomfort Respiratory: No: Shortness of Breath Gastrointestinal: No: Abdominal Pain Genitourinary: No: Dysuria Musculoskeletal: No: Pain Skin: No Rash Neurologic: No: Weakness Psychiatric: No: Depression Endocrine: No: Polydipsia Hematologic/Lymphatic: No: Easy Bruising Physical Exam Narrative GENERAL: SKIN: Warm and dry. HEAD: Normocephalic. EYES: Pupils equal and round. No scleral icterus. No injection or drainage. THERE IS RIGHT PERIORBITAL ECHYMOSIS HEALING, NO STEPOFF, NO CREPITUS ENT: No nasal bleeding or discharge. Mucous membranes pink and moist. NECK: Trachea midline. No JVD. CARDIOVASCULAR: Regular rate and rhythm. RESPIRATORY: No accessory muscle use. Clear to auscultation. Breath sounds equal bilaterally. GASTROINTESTINAL: Abdomen soft, non-tender, nondistended. MUSCULOSKELETAL: Extremities without clubbing, cyanosis, or edema. No obvious deformities. NEUROLOGICAL: Awake and alert. No obvious cranial nerve deficits. Motor grossly within normal limits. Five out of 5 muscle strength in the arms and legs. Normal speech. PSYCHIATRIC: Appropriate mood and affect; insight and judgment normal. Data Data Last Documented VS Vital Signs Date Time Temp Pulse Resp B/P (MAP) Pulse Ox O2 Delivery O2 Flow Rate FiO2 09/26/17 03:52 09/26/17 01:03 70 16 97 Room Air Orders Orders Complete Blood Count With Diff (09/25/17 22:23) Comprehensive Metabolic Panel (09/25/17 22:23) B-Type Natriuretic Peptide (09/25/17 22:23) Ct Brain W/O Iv Contrast(Rout) (09/25/17 22:23) Drug Screen, Random Urine (09/25/17 22:23) Alcohol (Ethanol) (09/25/17 22:23) Salicylates (Aspirin) (09/25/17 22:23) Tylenol (Acetaminophen) (09/25/17 22:23) Chest, Single Ap (09/25/17 22:23) Ed Discharge Order (09/26/17 00:26) Labs Laboratory Tests Test 09/25/17 22:50 White Blood Count 8.4 TH/MM3 Red Blood Count 5.17 MIL/MM3 Hemoglobin 11.1 GM/DL Hematocrit 36.0 % Mean Corpuscular Volume 69.6 FL Mean Corpuscular Hemoglobin 21.5 PG Mean Corpuscular Hemoglobin Concent 30.9 % Red Cell Distribution Width 18.5 % Platelet Count 356 TH/MM3 Mean Platelet Volume 7.6 FL Neutrophils (%) (Auto) 47.9 % Lymphocytes (%) (Auto) 46.6 % Monocytes (%) (Auto) 3.7 % Eosinophils (%) (Auto) 0.4 % Basophils (%) (Auto) 1.4 % Neutrophils # (Auto) 4.0 TH/MM3 Lymphocytes # (Auto) 3.9 TH/MM3 Monocytes # (Auto) 0.3 TH/MM3 Eosinophils # (Auto) 0.0 TH/MM3 Basophils # (Auto) 0.1 TH/MM3 CBC Comment DIFF FINAL Differential Comment Blood Urea Nitrogen 4 MG/DL Creatinine 0.74 MG/DL Random Glucose 94 MG/DL Total Protein 7.5 GM/DL Albumin 3.5 GM/DL Calcium Level 8.5 MG/DL Alkaline Phosphatase 95 U/L Aspartate Amino Transf (AST/SGOT) 30 U/L Alanine Aminotransferase (ALT/SGPT) 29 U/L Total Bilirubin 0.2 MG/DL Sodium Level 143 MEQ/L Potassium Level 3.2 MEQ/L Chloride Level 110 MEQ/L Carbon Dioxide Level 22.2 MEQ/L Anion Gap 11 MEQ/L Estimat Glomerular Filtration Rate 84 ML/MIN B-Type Natriuretic Peptide 22 PG/ML Salicylates Level 4.3 MG/DL Urine Opiates Screen NEG Acetaminophen Level LESS THAN 2.0 MCG/ML Urine Barbiturates Screen NEG Urine Amphetamines Screen NEG Urine Benzodiazepines Screen NEG Urine Cocaine Screen NEG Urine Cannabinoids Screen NEG Ethyl Alcohol Level 291 MG/DL [facility] Medical Decision Making Medical Screen Exam Complete: Yes Emergency Medical Condition: Yes Medical Record Reviewed: Yes Differential Diagnosis ICH V ETOH INTOX V electrolyte abnl Narrative Course ct neg for skull fx or ich. blood work largely unremarkable except for etoh intoxication with mild hypokalemia which does not require urgent replacement and can be accomplished by dietary adjustments Diagnosis Primary Impression: Alcohol intoxication Qualified Codes: F10.920 - Alcohol use, unspecified with intoxication, uncomplicated Additional Impression: RIGHT EYE CONTUSION Patient Instructions: Alcohol Intoxication (DC), Facial Contusion (ED), General Instructions Disposition: 01 DISCHARGE HOME Condition: Stable Rolly Hoyos MD Sep 25, 2017 22:26
--- NOTE | 2017-09-25 22:42 | RADRPT ---
EXAM DATE/TIME: 09/25/2017 23:20 [facility] COMPARISON: No previous studies available for comparison. INDICATIONS : Cough and shortness of breath. MEDICAL HISTORY : Chronic obstructive pulmonary disease. Hypertension SURGICAL HISTORY : None. ENCOUNTER: Initial ACUITY: 1 day PAIN SCORE: 0/10 LOCATION: Bilateral chest FINDINGS: A single view of the chest demonstrates the lungs to be symmetrically aerated without evidence of mas s, infiltrate or effusion. The cardiomediastinal contours are unremarkable. Osseous structures are intact. CONCLUSION: No acute disease. Evans Dodson MD on September 25, 2017 at 22:39 Board Certified Radiologist. This report was verified electronically.
--- NOTE | 2017-09-25 22:47 | RADRPT ---
EXAM DATE/TIME: 09/25/2017 22:30 [facility] COMPARISON: No previous studies available for comparison. INDICATIONS : Headache. RADIATION DOSE: 56.35 CTDIvol (mGy) MEDICAL HISTORY : None SURGICAL HISTORY : Hysterectomy. ENCOUNTER: Initial ACUITY: 1 day PAIN SCALE: 5/10 LOCATION: cranial TECHNIQUE: Multiple contiguous axial images were obtained of the head. Using automated exposure control and adj ustment of the mA and/or kV according to patient size, radiation dose was kept as low as reasonably a chievable to obtain optimal diagnostic quality images. DICOM format image data is available electro nically for review and comparison. FINDINGS: CEREBRUM: The ventricles are normal for age. No evidence of midline shift, mass lesion, hemorrhage or acute in farction. No extra-axial fluid collections are seen. POSTERIOR FOSSA: The cerebellum and brainstem are intact. The 4th ventricle is midline. The cerebellopontine angle i s unremarkable. EXTRACRANIAL: The visualized portion of the orbits is intact. SKULL: The calvaria is intact. No evidence of skull fracture. CONCLUSION: 1. No acute findings. Probable remote lacunar infarct left basal ganglia. Evans Dodson MD on September 25, 2017 at 22:43 Board Certified Radiologist. This report was verified electronically.
[2017-09-25 23:08] LABS: BASOPHIL # 0.1 TH/MM3 (0-0.2); BASOPHIL % 1.4 % (0.0-2.0); EOSINOPHIL % 0.4 % (0.0-4.0); HEMOGLOBIN 11.1 GM/DL (11.6-15.3); LYMPH % 46.6 % (9.0-44.0); LYMPHOCYTE # 3.9 TH/MM3 (1.0-4.8); MEAN CELL VOLUME 69.6 FL (80.0-100.0); MEAN CORPUSCULAR HEMOGLOBIN 21.5 PG (27.0-34.0); MEAN CORPUSCULAR HGB CONC 30.9 % (32.0-36.0); MEAN PLATELET VOLUME 7.6 FL (7.0-11.0); MONO % 3.7 % (0.0-8.0); MONOCYTE # 0.3 TH/MM3 (0-0.9); NEUT % 47.9 % (16.0-70.0); PLATELET COUNT 356 TH/MM3 (150-450); RED BLOOD COUNT 5.17 MIL/MM3 (4.00-5.30); RED CELL DISTRIBUTION WIDTH 18.5 % (11.6-17.2); WHITE BLOOD COUNT 8.4 TH/MM3 (4.0-11.0)
[2017-09-25 23:22] LABS: ALBUMIN 3.5 GM/DL (3.4-5.0); ALT (GPT) 29 U/L (10-53); AST (GOT) 30 U/L (15-37); BICARBONATE 22.2 MEQ/L (21.0-32.0); BLOOD UREA NITROGEN 4 MG/DL (7-18); CALCIUM 8.5 MG/DL (8.5-10.1); CHLORIDE 110 MEQ/L (98-107); CREATININE 0.74 MG/DL (0.50-1.00); GLOMERULAR FILTRATION RATE 84 ML/MIN (>89); GLUCOSE,RANDOM 94 MG/DL (74-106); SODIUM (NA) 143 MEQ/L (136-145)
[2017-09-25 23:24] LABS: ALKALINE PHOSPHATASE 95 U/L (45-117); TOTAL BILIRUBIN ADULT 0.2 MG/DL (0.2-1.0); TOTAL PROTEIN 7.5 GM/DL (6.4-8.2)
[2017-09-25 23:36] LABS: ACETAMINOPHEN LESS THAN 2.0 MCG/ML (10.0-30.0)
[2017-09-26 01:03] VITALS: BP 135/73; PULSE 70; RESP 16; O2SAT 97
== END 2017-09-26 03:54 | disposition home or self-care (01) ==
LOC: NEPD 20:39
DX: F10.129 Alcohol abuse with intoxication, unspecified (principal); Y90.8 Blood alcohol level of 240 mg/100 ml or more; R51 Headache; S05.11XA Contusion of eyeball and orbital tissues, right eye, initial encounter; W19.XXXA Unspecified fall, initial encounter; F41.9 Anxiety disorder, unspecified; F32.9 Major depressive disorder, single episode, unspecified; I10 Essential (primary) hypertension; J44.9 Chronic obstructive pulmonary disease, unspecified
CPT/HCPCS: 70450; 71010; 80053; 80307; 83880; 85025

== ENCOUNTER 2017-10-18 18:48 | Emergency (ER) | payer MEDICARE, OTHER ==
[~2017-10-18] VITALS: Ht 157.5 cm; Wt 83.0 kg
[2017-10-18 18:57] VITALS: BP 144/69; PULSE 72; RESP 16; TEMP 98.8; O2SAT 98
--- NOTE | 2017-10-18 19:10 | PD ---
HPI Chief Complaint: OD/ Ingestion Time Seen by Provider: 18:58 Travel History International Travel<30 days: No Contact w/Intl Traveler<30days: No Traveled to known affect area: No History of Present Illness HPI This is a 47-year-old female who presents via EMS for evaluation. Apparently for the past few days she's been feeling depressed, increasingly anxious. She reports that recently her primary care physician discontinued her Ativan prescription. She reportedly took 5 tablets of her 5 mg Zyprexa because "I am a nervous wreck." Her pill bottles are currently present and they have been counted and the correct amount of her Zyprexa and diltiazem are present. She denies ingesting this in an attempt to harm herself. She admits to drinking vodka and beer as well. Denies any other coingestions. She denies any homicidal ideation, hallucinations. She has no other complaints at this time. PFSH Past Medical History Anxiety: Yes Depression: Yes Cardiovascular Problems: Yes (HTN) COPD: Yes Cerebrovascular Accident: Yes ("YEARS AGO" RIGHT SIDED WEAKNESS FROM IT) Hypertension: Yes Respiratory: Yes (COPD) Immunizations Current: No : 3 Para: 3 Miscarriage: 0 : 0 Tubal Ligation: Yes Past Surgical History Cholecystectomy: Yes Hysterectomy: Yes Other Surgery: Yes (hernia repair) Social History Alcohol Use: Yes (RARELY) Tobacco Use: Yes (/ PPD) Substance Use: No Allergies-Medications (Allergen,Severity, Reaction): Coded Allergies: levofloxacin (Unverified Allergy, Severe, Anaphylaxis, 10/18/17) Reported Meds & Prescriptions Reported Meds & Active Scripts Active Proventil Hfa 6.7 GM Inh (Albuterol Sulfate) 90 Mcg/Act Aer 2 Puff INH Q4-6H PRN Albuterol Neb (Albuterol Sulfate) 2.5 Mg/3 Ml Neb 2.5 Mg NEB Q4HR NEB PRN Reported Prilosec (Omeprazole Magnesium) 20 Mg Tab Diltiazem (Diltiazem HCl) 60 Mg Tab 60 Mg PO QID Olanzapine 5 Mg Tab 5 Mg PO DAILY Review of Systems Except as stated in HPI: all other systems reviewed are Neg Physical Exam Narrative GENERAL: Disheveled female who is tearful. SKIN: Warm and dry. HEAD: Atraumatic. Normocephalic. EYES: Pupils equal and round. No scleral icterus. No injection or drainage. ENT: No nasal bleeding or discharge. Mucous membranes pink and moist. NECK: Trachea midline. No JVD. CARDIOVASCULAR: Regular rate and rhythm. No murmur appreciated. RESPIRATORY: No accessory muscle use. Clear to auscultation. Breath sounds equal bilaterally. GASTROINTESTINAL: Abdomen soft, non-tender, nondistended. Hepatic and splenic margins not palpable. MUSCULOSKELETAL: No obvious deformities. No clubbing. No cyanosis. No edema. NEUROLOGICAL: Awake and alert. No obvious cranial nerve deficits. Motor grossly within normal limits. Normal speech. PSYCHIATRIC: Anxious, tearful, depressed. Data Data Last Documented VS Vital Signs Date Time Temp Pulse Resp B/P (MAP) Pulse Ox O2 Delivery O2 Flow Rate FiO2 10/18/17 19:48 18 98 Room Air 10/18/17 19:31 78 156/78 (104) 2.00 10/18/17 18:57 98.8 Orders Orders Complete Blood Count With Diff (10/18/17 19:07) Comprehensive Metabolic Panel (10/18/17 19:07) Electrocardiogram (10/18/17 19:07) Oximetry (10/18/17 19:07) Ecg Monitoring (10/18/17 19:07) Drug Screen, Random Urine (10/18/17 19:07) Alcohol (Ethanol) (10/18/17 19:07) Salicylates (Aspirin) (10/18/17 19:07) Tylenol (Acetaminophen) (10/18/17 19:07) Labs Laboratory Tests Test 10/18/17 18:54 [facility] Medical Decision Making Medical Screen Exam Complete: Yes Emergency Medical Condition: Yes Medical Record Reviewed: Yes Differential Diagnosis Benzodiazepine withdrawal, anxiety, adjustment reaction, substance induced mood disorder, acute psychosis, major depressive disorder Narrative Course 47-year-old female presents after feeling increasingly anxious after recently having her benzodiazepine prescriptions discontinued. She reports that she took extra dose of her Zyprexa to help calm her nerves. She is currently cooperative, somewhat anxious and tearful on examination. She is able to ambulate here in the ED to the bathroom. She is strongly denying any thoughts of self-harm and her primary motivation at this time is to quit feeling anxiety. Therefore the patient will be discharged, recommended close follow-up with primary care and wild [facility]. She is agreeable. Diagnosis Primary Impression: Adjustment reaction Qualified Codes: F43.20 - Adjustment disorder, unspecified Additional Impressions: Anxiety Alcoholism Referrals: Primary Care Physician [facility] Additional Instructions: Follow up closely with your primary care physician. Consider attending a detoxification center such as [facility] for help with alcoholism. Return for any emergent medical conditions. Med/Other Pt SpecificInfo: No Change to Meds Disposition: 01 DISCHARGE HOME Condition: Stable Ilir Pelayo Oct 18, 2017 19:10
[2017-10-18 19:11] VITALS: O2SAT 99
[2017-10-18 19:31] VITALS: BP 156/78; PULSE 78; RESP 24; O2SAT 99
[2017-10-18] MEDS ORDERED: OLAN5TAB PO (19:33)
[2017-10-18] MEDS ORDERED: DILT60TA PO (19:33)
[2017-10-18] MEDS ORDERED: PRIL20TA2 (19:36)
[2017-10-18] MEDS ORDERED: IBUPROFEN 400 MG TAB PO ONE (20:00)
--- NOTE | 2017-10-18 20:01 | PD ---
Data Data Last Documented VS Vital Signs Date Time Temp Pulse Resp B/P (MAP) Pulse Ox O2 Delivery O2 Flow Rate FiO2 10/18/17 19:48 18 98 Room Air 10/18/17 19:31 78 156/78 (104) 2.00 10/18/17 18:57 98.8 Orders Orders Complete Blood Count With Diff (10/18/17 19:07) Comprehensive Metabolic Panel (10/18/17 19:07) Electrocardiogram (10/18/17:07) Oximetry (10/18/17:07) Ecg Monitoring (10/18/17 19:07) Drug Screen, Random Urine (10/18/17:07) Alcohol (Ethanol) (10/18/17:07) Salicylates (Aspirin) (10/18/17:07) Tylenol (Acetaminophen) (10/18/17 19:07) Labs Laboratory Tests Test 10/18/17 18:54 MDM Medical Record Reviewed: Yes Supervised Visit with CELIO: Yes Narrative Course Please refer to the mid-level documentation. The patient has been here before with a similar presentation, alcohol ingestion earlier today followed by an altercation with family and suggestion of suicidal preoccupation. Here the patient denies any actual plan to harm herself. She has never intentionally harm herself. She denies any availability/access to firearms. She reports stopping Ativan within the last 2 weeks or so and reports it to be a challenging change in her normal pharmacologic routine. Subsequently she is extremely anxious. She does nonetheless have no intention of harming herself. She states that her glucometer earlier in the day was essentially a figure of speech to describe the difficulties she is experiencing while stopping Ativan. She has verbalized repeatedly to me and with during present that she understands it is the right thing to do, stopping Ativan, and that is what she feels are now is simply a consequence of the cessation of the medication. In this scenario is considered reasonably safe to send the patient home. She does have reliable outpatient follow-up and can return as needed. Diagnosis Primary Impression: Suicidal ideation Additional Impression: Alcohol intoxication Guillermo Rubin MD Oct 18, 2017 20:01
[2017-10-18 20:07] LABS: AUTOMATED NEUTROPHIL # 6.3 TH/MM3 (1.8-7.7); BASOPHIL # 0.1 TH/MM3 (0-0.2); EOSINOPHIL % 0.4 % (0.0-4.0); HEMATOCRIT 33.6 % (35.0-46.0); HEMO FLAGS DIFF FINAL; LYMPH % 36.4 % (9.0-44.0); MEAN CELL VOLUME 69.3 FL (80.0-100.0); MEAN CORPUSCULAR HGB CONC 30.4 % (32.0-36.0); MONO % 4.5 % (0.0-8.0); NEUT % 57.7 % (16.0-70.0); PLATELET COUNT 282 TH/MM3 (150-450); RED BLOOD COUNT 4.84 MIL/MM3 (4.00-5.30); RED CELL DISTRIBUTION WIDTH 19.3 % (11.6-17.2)
[2017-10-18 20:18] LABS: ANION GAP 12 MEQ/L (5-15); AST (GOT) 34 U/L (15-37); BICARBONATE 19.9 MEQ/L (21.0-32.0); BLOOD UREA NITROGEN 5 MG/DL (7-18); CHLORIDE 107 MEQ/L (98-107); GLOMERULAR FILTRATION RATE 80 ML/MIN (>89); POTASSIUM 3.6 MEQ/L (3.5-5.1); SODIUM (NA) 139 MEQ/L (136-145)
[2017-10-18 20:31] LABS: ALKALINE PHOSPHATASE 120 U/L (45-117); ALT (GPT) 22 U/L (10-53); TOTAL BILIRUBIN ADULT 0.2 MG/DL (0.2-1.0)
[2017-10-18 20:36] LABS: ALCOHOL 295 MG/DL (0-5)
[2017-10-18 20:37] LABS: ACETAMINOPHEN LESS THAN 2.0 MCG/ML (10.0-30.0)
--- NOTE | 2017-10-19 15:30 | EKG ---
Date Performed: 10/18/2017 Time Performed: 19:17:24 PTAGE: 47 years EKG: Sinus rhythm Compared to prior tracing no significant change NORMAL ECG PREVIOUS TRACING : 09/14/2016 16.51 DOCTOR: Kulwant Tong Interpretating Date/Time 10/19/2017 15:29:21
== END 2017-10-18 20:40 | disposition home or self-care (01) ==
LOC: NEPC 18:48
DX: R45.851 Suicidal ideations (principal); F10.129 Alcohol abuse with intoxication, unspecified; F43.20 Adjustment disorder, unspecified; I10 Essential (primary) hypertension; J44.9 Chronic obstructive pulmonary disease, unspecified; I69.951 Hemiplegia and hemiparesis following unspecified cerebrovascular disease affecting right dominant side; F17.200 Nicotine dependence, unspecified, uncomplicated; Z79.51 Long term (current) use of inhaled steroids; Z79.899 Other long term (current) drug therapy
CPT/HCPCS: 80053; 80307; 85025; 93005; 99284

== ENCOUNTER 2017-11-16 20:32 | Emergency (ER) | payer MEDICARE, OTHER ==
[~2017-11-16] VITALS: Ht 157.5 cm; Wt 78.6 kg
[~2017-11-16 20:32] MED LIST changes: +DILT60TA PO; -NEOM1SOL7 LEFT EAR; +OLAN5TAB PO; -OMEP40CA2 PO; -PRED50 PO; +PRIL20TA2; -ZITHTAB PO
[2017-11-16 20:35] VITALS: BP 141/83; PULSE 120; RESP 20; TEMP 99; O2SAT 97
--- NOTE | 2017-11-16 21:46 | PD ---
Physical Exam Date Seen by Provider: Nov 16, 2017 Time Seen by Provider: 20:41 Narrative Patient was diagnosed with the flu 2 weeks ago; feels worse. She reports history of COPD with increasing SOB and cough. She is on home oxygen, 2L O2 NC. She reports fever of 103 this morning. Patient evaluated in triage, workup initiated. She is awaiting medical bed. Data Data Last Documented VS Vital Signs Date Time Temp Pulse Resp B/P (MAP) Pulse Ox O2 Delivery O2 Flow Rate FiO2 11/16/17 20:35 99.0 120 20 141/83 (102) 97 Room Air Orders Orders Complete Blood Count With Diff (11/16/17 20:43) Basic Metabolic Panel (Bmp) (11/16/17 20:43) B-Type Natriuretic Peptide (11/16/17 20:43) Act Partial Throm Time (Ptt) (11/16/17 20:43) Prothrombin Time / Inr (Pt) (11/16/17 20:43) Magnesium (Mg) (11/16/17 20:43) Ckmb (Isoenzyme) Profile (11/16/17 20:43) Troponin I (11/16/17 20:43) Electrocardiogram (11/16/17 20:43) Chest, Pa & Lat (11/16/17 ) MDM Supervised Visit with CELIO: No Narrative Course 47 year old female presents to the emergency department for fever, worsening SOB , cough. Patient was evaluated in triage. She left AMA before workup could be completed. Diagnosis Primary Impression: Left against medical advice Additional Impression: Shortness of breath Disposition: 07 AGAINST MEDICAL ADVICE Jessica Chambers Nov 16, 2017 21:46
--- NOTE | 2017-11-16 21:52 | RADRPT ---
EXAM DATE/TIME: 11/16/2017 20:52 [facility] COMPARISON: CHEST SINGLE AP, September 25, 2017, 23:20. CHEST PA & LAT, June 13, 2017, 6:16. INDICATIONS : Short of breath. MEDICAL HISTORY : Chronic obstructive pulmonary disease. SURGICAL HISTORY : None. ENCOUNTER: Initial ACUITY: 1 day PAIN SCORE: 0/10 LOCATION: Bilateral chest FINDINGS: PA and lateral views of the chest demonstrate the lungs to be symmetrically aerated without evidence of mass, infiltrate or effusion. The cardiomediastinal contours are unremarkable. Osseous structure s are intact. CONCLUSION: The lungs are clear. Odell Ruano MD on November 16, 2017 at 21:49 Board Certified Radiologist. This report was verified electronically.
== END 2017-11-16 21:42 | disposition left against medical advice (07) ==
LOC: NED 20:32
DX: R06.02 Shortness of breath (principal)
CPT/HCPCS: 71020; 99281

== ENCOUNTER 2017-12-06 18:56 | Emergency (ER) | payer MEDICARE, OTHER ==
[~2017-12-06] VITALS: Ht 157.5 cm; Wt 83.0 kg
[2017-12-06 19:05] VITALS: BP 140/103; PULSE 135; RESP 20; TEMP 99; O2SAT 94
--- NOTE | 2017-12-06 19:20 | PD ---
HPI Chief Complaint: GI Complaint Time Seen by Provider: 19:12 Travel History International Travel<30 days: No Contact w/Intl Traveler<30days: No Traveled to known affect area: No History of Present Illness HPI The patient is a 47-year-old female alcoholic who has multiple complaints. She has nausea, vomiting, diarrhea, chronic right arm and leg pain and shortness of breath. She states her last drink of vodka was 20 minutes ago. She denies vomiting any blood. She smokes one pack a day plus cigars. She does have a history of COPD. She has been wheezing. She denies any chest pain. She does have oxygen at home on an as-needed basis 2-3 L nasal cannula. PFSH Past Medical History Anxiety: Yes Depression: Yes Cardiovascular Problems: Yes COPD: Yes Cerebrovascular Accident: Yes Hypertension: Yes Respiratory: Yes Immunizations Current: No ?: Not : 3 Para: 3 Miscarriage: 0 : 0 Tubal Ligation: Yes Past Surgical History Cholecystectomy: Yes Hysterectomy: Yes Other Surgery: Yes (hernia repair) Social History Alcohol Use: Yes (RARELY) Tobacco Use: Yes (12/03 PPD) Substance Use: No Allergies-Medications (Allergen,Severity, Reaction): Coded Allergies: levofloxacin (Unverified Allergy, Severe, Anaphylaxis, 12/06/17) Reported Meds & Prescriptions Reported Meds & Active Scripts Active Zofran (Ondansetron HCl) 4 Mg Tab 4 Mg PO Q6HR PRN Omeprazole 20 Mg Tab 20 Mg PO DAILY Prednisone 50 Mg Tab 50 Mg PO DAILY 5 Days Proventil Hfa 6.7 GM Inh (Albuterol Sulfate) 90 Mcg/Act Aer 2 Puff INH Q4-6H PRN Albuterol Neb (Albuterol Sulfate) 2.5 Mg/3 Ml Neb 2.5 Mg NEB Q4HR NEB PRN Reported Prilosec (Omeprazole Magnesium) 20 Mg Tab Diltiazem (Diltiazem HCl) 60 Mg Tab 60 Mg PO QID Olanzapine 5 Mg Tab 5 Mg PO DAILY Review of Systems Except as stated in HPI: all other systems reviewed are Neg Physical Exam Narrative GENERAL: The patient is alert, obese, oriented 3 and slight respiratory distress. Vital signs show temperature 90.9 with heart rate of 135 and oximetry 94% and blood pressure 140/103. SKIN: Focused skin assessment warm/dry. HEAD: Atraumatic. Normocephalic. EYES: Pupils equal and round. No scleral icterus. No injection or drainage. ENT: No nasal bleeding or discharge. Mucous membranes pink and moist. NECK: Trachea midline. No JVD. CARDIOVASCULAR: Regular rate and rhythm. No murmur appreciated. RESPIRATORY: No accessory muscle use. Bilateral wheezes are heard in all lung tubbs. Breath sounds equal bilaterally. GASTROINTESTINAL: Abdomen soft, non-tender, nondistended. Hepatic and splenic margins not palpable. No guarding or rebound is present. MUSCULOSKELETAL: No obvious deformities. No clubbing. No cyanosis. No edema. NEUROLOGICAL: Awake and alert. No obvious cranial nerve deficits. Motor grossly within normal limits. Normal speech. PSYCHIATRIC: Appropriate mood and affect; insight and judgment normal. Data Data Last Documented VS Vital Signs Date Time Temp Pulse Resp B/P (MAP) Pulse Ox O2 Delivery O2 Flow Rate FiO2 12/06/17 19:25 94 Nasal Cannula 2.00 12/06/17 19:25 112 22 123/81 (95) 12/06/17 19:05 99.0 Orders Orders Electrocardiogram (12/06/17 19:21) Complete Blood Count With Diff (12/06/17 19:21) Comprehensive Metabolic Panel (12/06/17 19:21) Troponin I (12/06/17 19:21) Urinalysis - C+S If Indicated (12/06/17 19:21) Chest, Pa & Lat (12/06/17 19:21) Blood Glucose (12/06/17 19:21) Ecg Monitoring (12/06/17 19:21) Iv Access Insert/Monitor (12/06/17 19:21) Oximetry (12/06/17 19:21) Oxygen Administration (12/06/17 19:21) Sodium Chloride 0.9% Flush (Ns Flush) (12/06/17 19:30) Alcohol (Ethanol) (12/06/17 19:21) Lipase (12/06/17 19:21) Ondansetron Inj (Zofran Inj) (12/06/17 19:30) Sodium Chlor 0.9% 1000 Ml Inj (Ns 1000 M (12/06/17 19:21) Methylprednisolone So Succ Inj (Solumedr (12/06/17 19:45) Albuterol-Ipratropium Neb (Duoneb Neb) (12/06/17 19:45) Influenzae A/B Antigen (12/06/17 20:01) Labs Laboratory Tests Test 12/06/17 19:45 12/06/17 20:15 White Blood Count 8.4 TH/MM3 Red Blood Count 5.04 MIL/MM3 Hemoglobin 9.7 GM/DL Hematocrit 34.3 % Mean Corpuscular Volume 68.0 FL Mean Corpuscular Hemoglobin 19.2 PG Mean Corpuscular Hemoglobin Concent 28.3 % Red Cell Distribution Width 18.8 % Platelet Count 258 TH/MM3 Mean Platelet Volume 7.4 FL CBC Comment AUTO DIFF Differential Total Cells Counted 100 Neutrophils % (Manual) 62 % Band Neutrophils % 1 % Lymphocytes % 30 % Monocytes % 7 % Neutrophils # (Manual) 5.3 TH/MM3 Differential Comment FINAL DIFF MANUAL Platelet Estimate NORMAL Platelet Morphology Comment CLUMPED Blood Urea Nitrogen 11 MG/DL Creatinine 0.72 MG/DL Random Glucose 103 MG/DL Total Protein 7.2 GM/DL Albumin 2.9 GM/DL Calcium Level 8.2 MG/DL Alkaline Phosphatase 103 U/L Aspartate Amino Transf (AST/SGOT) 71 U/L Alanine Aminotransferase (ALT/SGPT) 37 U/L Total Bilirubin 0.3 MG/DL Sodium Level 143 MEQ/L Potassium Level 3.8 MEQ/L Chloride Level 106 MEQ/L Carbon Dioxide Level 25.3 MEQ/L Anion Gap 12 MEQ/L Estimat Glomerular Filtration Rate 87 ML/MIN Troponin I LESS THAN 0.02 NG/ML Lipase 256 U/L Ethyl Alcohol Level 305 MG/DL Urine Color YELLOW Urine Turbidity CLEAR Urine pH 5.5 Urine Specific [place] 1.012 Urine Protein TRACE mg/dL Urine Glucose (UA) NEG mg/dL Urine Ketones NEG mg/dL Urine Occult Blood TRACE Urine Nitrite NEG Urine Bilirubin NEG Urine Leukocyte Esterase NEG Urine WBC 0-2 /hpf Urine Squamous Epithelial Cells 0-5 /hpf Urine Amorphous Sediment SMALL Urine Bacteria OCC /hpf Urine Mucus FEW /lpf Microscopic Urinalysis Comment CULT NOT INDICATED MDM Medical Decision Making Medical Screen Exam Complete: Yes Emergency Medical Condition: Yes Medical Record Reviewed: Yes Interpretation(s) The chest x-ray shows no acute disease. The EKG shows sinus tachycardia of 106 but is otherwise unremarkable. The complete metabolic profile shows a GFR of 87 , albumin 2.9, calcium 8.2 with GOT of 71 but is otherwise unremarkable. The troponin I is normal. The alcohol level is 305. The lipase is normal. The CBC is normal except for hemoglobin of 9.7 and hematocrit of 34.3. The urine shows trace protein, trace occult blood but is otherwise normal and culture is not indicated. Differential Diagnosis COPD with acute exacerbation, hypoxemia, pneumonia, bronchitis, bronchospasm, viral syndrome, viral gastroenteritis, alcohol gastritis, alcohol abuse, urinary tract infection Narrative Course The patient appears to have gastroenteritis, alcohol abuse, alcohol gastritis and COPD with acute exacerbation. The patient is anemic but her hemoglobin tonight is similar to the previous hemoglobin done last month. The patient does have availability of oxygen at home and when she is on 2 L nasal cannula she sats around 95%. Plan: The patient will be given prescriptions for Zofran, prednisone and omeprazole. She needs to quit smoking and needs to discontinue alcohol. Diagnosis Primary Impression: Acute exacerbation of COPD with asthma Additional Impressions: Alcohol abuse Alcoholic gastritis Chronic anemia Additional Instructions: As we discussed, it is extremely important to quit smoking. Also quit the alcohol. Both are hurting you. Follow-up this week with a primary care physician. Med/Other Pt SpecificInfo: Prescription(s) given Scripts Ondansetron (Zofran) 4 Mg Tab 4 MG PO Q6HR Y for NAUSEA OR VOMITING, #28 TAB 0 Refills Prov: Gary Abel MD 12/06/17 Omeprazole (Omeprazole) 20 Mg Tab 20 MG PO DAILY, #30 TAB 0 Refills Prov: Gary Abel MD 12/06/17 Prednisone (Prednisone) 50 Mg Tab 50 MG PO DAILY for 5 Days, #5 TAB 0 Refills Prov: Gary Abel MD 12/06/17 Disposition: 01 DISCHARGE HOME Condition: Stable Gary Abel MD Dec 06, 2017 19:20
[2017-12-06] MEDS ORDERED: SODIUM CHLOR 0.9% 1000 ML INJ 1,000 ML IV SCH (19:21)
[2017-12-06 19:25] VITALS: BP_SYST 123; BP_SYST 140; BP_DIAS 81; BP_DIAS 83; PULSE 112; RESP 20; RESP 22; O2SAT 94
[2017-12-06] MEDS ORDERED: SODIUM CHLORIDE 0.9% FLUSH 10 ML FLUSH IV FLUSH PRN (19:30)
[2017-12-06] MEDS ORDERED: ONDANSETRON HCL 4 MG/2 ML VIAL IVP ONE (19:30)
[2017-12-06] MEDS ORDERED: methylPREDNISolone SOD SUCC 125 MG/2 ML VIAL IV PUSH ONE (19:45)
[2017-12-06 19:55] VITALS: O2SAT 94
[2017-12-06] MEDS: RESP: ALBUTEROL 2.5 MG/IPRATROPIUM 0.5 MG NEB (SCH) INH (19:56)
[2017-12-06 20:02] LABS: HEMATOCRIT 34.3 % (35.0-46.0); HEMOGLOBIN 9.7 GM/DL (11.6-15.3); MEAN CORPUSCULAR HEMOGLOBIN 19.2 PG (27.0-34.0); MEAN PLATELET VOLUME 7.4 FL (7.0-11.0); PLATELET COUNT 258 TH/MM3 (150-450); RED BLOOD COUNT 5.04 MIL/MM3 (4.00-5.30); RED CELL DISTRIBUTION WIDTH 18.8 % (11.6-17.2); WHITE BLOOD COUNT 8.4 TH/MM3 (4.0-11.0)
--- NOTE | 2017-12-06 20:04 | RADRPT ---
EXAM DATE/TIME: 12/06/2017 19:27 [facility] COMPARISON: CHEST PA & LAT, November 16, 2017, 20:52. INDICATIONS : Shortness of breath. MEDICAL HISTORY : Chronic obstructive pulmonary disease. SURGICAL HISTORY : None. ENCOUNTER: Initial ACUITY: 1 day PAIN SCORE: 0/10 LOCATION: Bilateral chest FINDINGS: PA and lateral views of the chest demonstrate the lungs to be symmetrically aerated without evidence of mass, infiltrate or effusion. The cardiomediastinal contours are unremarkable. Osseous structure s are intact. CONCLUSION: No acute disease. Rafy Blanchard MD on December 06, 2017 at 20:01 Board Certified Radiologist. This report was verified electronically.
[2017-12-06 20:12] LABS: MEAN CORPUSCULAR HGB CONC 28.3 % (32.0-36.0)
[2017-12-06 20:13] LABS: CHLORIDE 106 MEQ/L (98-107); SODIUM (NA) 143 MEQ/L (136-145)
[2017-12-06 20:17] LABS: CALCIUM 8.2 MG/DL (8.5-10.1)
[2017-12-06 20:18] LABS: ALBUMIN 2.9 GM/DL (3.4-5.0); BICARBONATE 25.3 MEQ/L (21.0-32.0); BLOOD UREA NITROGEN 11 MG/DL (7-18); GLUCOSE,RANDOM 103 MG/DL (74-106); LIPASE 256 U/L (73-393)
[2017-12-06 20:21] LABS: ALT (GPT) 37 U/L (10-53); AST (GOT) 71 U/L (15-37); CREATININE 0.72 MG/DL (0.50-1.00); GLOMERULAR FILTRATION RATE 87 ML/MIN (>89)
[2017-12-06 20:22] LABS: TOTAL BILIRUBIN ADULT 0.3 MG/DL (0.2-1.0); TOTAL PROTEIN 7.2 GM/DL (6.4-8.2)
[2017-12-06 20:22] LABS: BILIRUBIN, URINE NEG (NEG); BLOOD, URINE TRACE (NEG); GLUCOSE,URINE NEG (NEG); KETONE, URINE NEG (NEG); NITRITE,URINE NEG (NEG); PH, URINE 5.5 (5.0-8.5); URINE LEUKOCYTE ESTERASE NEG (NEG)
[2017-12-06 20:24] LABS: ALKALINE PHOSPHATASE 103 U/L (45-117)
[2017-12-06 20:26] LABS: TROPONIN I LESS THAN 0.02 NG/ML (0.02-0.05)
[2017-12-06 20:38] LABS: BANDS 1 % (0-6); LYMPHOCYTES 30 % (9-44); MONOCYTES 7 % (0-8); NEUTROPHIL # MANUAL DIFF 5.3 TH/MM3 (1.8-7.7); POLYS (SEG NEUTROPHILS) 62 % (16-70)
[2017-12-06] MEDS ORDERED: ZOFR4TAB PO (20:43)
[2017-12-06] MEDS ORDERED: PRED50 PO (20:43)
[2017-12-06] MEDS ORDERED: OMEP20TA93 PO (20:43)
[2017-12-06 20:44] LABS: MUCUS URINE FEW /lpf (OCC); SQUAMOUS EPITHELIAL CELL URINE 0-5 /hpf (0-5); URINE COLOR YELLOW (YELLW/STRAW)
[2017-12-06 20:45] LABS: AMORPHOUS SEDIMENT, URINE SMALL; BACTERIA, URINE OCC /hpf; WBC, URINE 0-2 /hpf (0-5)
[2017-12-06 21:44] VITALS: BP 118/73; TEMP 98.2
--- NOTE | 2017-12-07 19:10 | EKG ---
Date Performed: 12/06/2017 Time Performed: 19:44:24 PTAGE: 47 years EKG: SINUS TACHYCARDIA Compared to previous tracing, the patient is now tachycardic ABNORMAL RHY THM ECG PREVIOUS TRACING : 10/18/2017 19.17 DOCTOR: Maryjo Moralez Interpretating Date/Time 12/07/2017 19:09:51
== END 2017-12-06 21:47 | disposition home or self-care (01) ==
LOC: PHED 18:56
DX: J44.1 Chronic obstructive pulmonary disease with (acute) exacerbation (principal); F10.129 Alcohol abuse with intoxication, unspecified; J45.901 Unspecified asthma with (acute) exacerbation; R00.0 Tachycardia, unspecified; I10 Essential (primary) hypertension; K29.20 Alcoholic gastritis without bleeding; D64.9 Anemia, unspecified; F17.210 Nicotine dependence, cigarettes, uncomplicated; F41.8 Other specified anxiety disorders; Y90.8 Blood alcohol level of 240 mg/100 ml or more; Z86.73 Personal history of transient ischemic attack (TIA), and cerebral infarction without residual deficits
CPT/HCPCS: 71046; 80053; 80307; 81001; 83690; 84484; 85007; 85027; 87804; 93005; 94640; 94664; 96361; 96374; 96375; 99285; J2405; J2930; J7030

== ENCOUNTER 2018-02-18 17:31 | Emergency (ER) | payer MEDICARE, OTHER ==
[~2018-02-18] VITALS: Ht 157.5 cm; Wt 80.5 kg
[~2018-02-18 17:31] MED LIST changes: +OMEP20TA93 PO; +PRED50 PO; +ZOFR4TAB PO
[2018-02-18 17:52] VITALS: BP 174/82; PULSE 118; RESP 18; TEMP 98.5; O2SAT 96
[2018-02-18] MEDS ORDERED: OMEP40CA2 PO (19:29)
[2018-02-18] MEDS ORDERED: CYMB60CA PO (19:29)
[2018-02-18] MEDS ORDERED: OXYGEN (19:30)
[2018-02-18] MEDS ORDERED: ONDANSETRON HCL 4 MG/2 ML VIAL IV PUSH ONE (19:45)
[2018-02-18 20:32] LABS: AUTOMATED NEUTROPHIL # 10.1 TH/MM3 (1.8-7.7); BASOPHIL % 0.2 % (0.0-2.0); EOSINOPHIL % 0.1 % (0.0-4.0); HEMATOCRIT 29.5 % (35.0-46.0); HEMOGLOBIN 9.1 GM/DL (11.6-15.3); LYMPH % 9.7 % (9.0-44.0); LYMPHOCYTE # 1.1 TH/MM3 (1.0-4.8); MEAN CELL VOLUME 64.7 FL (80.0-100.0); MEAN CORPUSCULAR HGB CONC 30.9 % (32.0-36.0); MEAN PLATELET VOLUME 7.2 FL (7.0-11.0); MONO % 4.5 % (0.0-8.0); MONOCYTE # 0.5 TH/MM3 (0-0.9); NEUT % 85.5 % (16.0-70.0); PLATELET COUNT 241 TH/MM3 (150-450); RED BLOOD COUNT 4.56 MIL/MM3 (4.00-5.30); RED CELL DISTRIBUTION WIDTH 19.5 % (11.6-17.2); WHITE BLOOD COUNT 11.7 TH/MM3 (4.0-11.0)
[2018-02-18 20:33] LABS: CHLORIDE 98 MEQ/L (98-107); SODIUM (NA) 132 MEQ/L (136-145)
[2018-02-18 20:35] LABS: BLOOD, URINE LARGE (NEG); GLUCOSE,URINE NEG (NEG); KETONE, URINE TRACE mg/dL (NEG); NITRITE,URINE NEG (NEG); URINE COLOR YELLOW (YELLW/STRAW); URINE LEUKOCYTE ESTERASE TRACE (NEG)
[2018-02-18 20:36] LABS: ALBUMIN 2.9 GM/DL (3.4-5.0); BICARBONATE 25.4 MEQ/L (21.0-32.0); CALCIUM 8.4 MG/DL (8.5-10.1); GLUCOSE,RANDOM 89 MG/DL (74-106); MAGNESIUM 1.5 MG/DL (1.5-2.5)
[2018-02-18 20:37] LABS: BLOOD UREA NITROGEN 8 MG/DL (7-18)
[2018-02-18 20:39] LABS: ALT (GPT) 29 U/L (10-53)
[2018-02-18 20:40] VITALS: BP 140/89; PULSE 94; RESP 16; O2SAT 97
[2018-02-18 20:40] LABS: AST (GOT) 33 U/L (15-37); CREATININE 0.67 MG/DL (0.50-1.00); GLOMERULAR FILTRATION RATE 95 ML/MIN (>89)
[2018-02-18 20:41] LABS: TOTAL BILIRUBIN ADULT 0.3 MG/DL (0.2-1.0); TOTAL PROTEIN 7.2 GM/DL (6.4-8.2)
[2018-02-18 20:42] LABS: ALKALINE PHOSPHATASE 107 U/L (45-117)
[2018-02-18 20:42] LABS: BILIRUBIN, URINE NEG (NEG)
[2018-02-18 20:44] LABS: MUCUS URINE MOD /lpf (OCC)
[2018-02-18 20:45] LABS: BACTERIA, URINE FEW /hpf; SQUAMOUS EPITHELIAL CELL URINE > 8 /hpf (0-5); TRICHOMONAS, URINE MANY
[2018-02-18 21:05] LABS: STOMATOCYTES 2+ (NORMAL)
--- NOTE | 2018-02-18 21:32 | RADRPT ---
EXAM DATE/TIME: 02/18/2018 20:13 [facility] COMPARISON: No previous studies available for comparison. INDICATIONS : Vomiting and diarrhea since last night. MEDICAL HISTORY : Gastroesophageal reflux disease. Chronic obstructive pulmonary disease. Hypertension. CVA. Afib. SURGICAL HISTORY : Cholecystectomy. Hysterectomy. Tubal ligation. Hernia repair. ENCOUNTER: Initial ACUITY: 1 day PAIN SCORE: 5/10 LOCATION: Bilateral abdomen. FINDINGS: Supine and upright views of the abdomen were performed. The abdominal bowel gas pattern is normal. No air fluid levels are seen. No abnormal masses, calcifications, or organomegaly is seen. The visu alized lower lungs are clear. No evidence of free intraperitoneal gas. The osseous structures are u nremarkable. CONCLUSION: 1. No acute findings. Previous ventral hernia repair. Previous cholecystectomy. Evans Dodson MD on February 18, 2018 at 21:28 Board Certified Radiologist. This report was verified electronically.
--- NOTE | 2018-02-18 21:33 | RADRPT ---
EXAM DATE/TIME: 02/18/2018 20:13 [facility] COMPARISON: No previous studies available for comparison. INDICATIONS : Shortness of breath and vomiting. MEDICAL HISTORY : Hypertension. Chronic obstructive pulmonary disease. Gastroesophageal reflux disease. Afib. CVA. SURGICAL HISTORY : Hysterectomy. Tubal ligation. Cholecystectomy. Hernia repair. ENCOUNTER: Initial ACUITY: 1 day PAIN SCORE: 0/10 LOCATION: Bilateral chest FINDINGS: A single view of the chest demonstrates the lungs to be symmetrically aerated without evidence of mas s, infiltrate or effusion. The cardiomediastinal contours are unremarkable. Osseous structures are intact. CONCLUSION: 1. No active disease. Evans Dodson MD on February 18, 2018 at 21:30 Board Certified Radiologist. This report was verified electronically.
--- NOTE | 2018-02-18 22:11 | PD ---
HPI Chief Complaint: Respiratory Symptoms Time Seen by Provider: 19:36 Travel History International Travel<30 days: No Contact w/Intl Traveler<30days: No Traveled to known affect area: No History of Present Illness HPI 47-year-old female presents to the emergency department complaining of nausea vomiting diarrhea and intermittent abdominal cramping. Patient states symptoms and present for the past few days. Patient states she has been exposed to symptoms through family members her grandson and her daughter. Patient has had subjective fever without chills. Patient denies hematemesis coffee-ground emesis melena hematochezia. Patient denies dysuria frequency urgency flank pain hematuria. Patient denies vaginal discharge or vaginal bleeding. Patient has history of previous alcohol use hypertension atrial fibrillation CVA COPD and anxiety depression. Patient admits to tobacco use. PFSH Past Medical History Narrative Medical CVA atrial fibrillation hypertension anxiety depression COPD GERD tubal ligation cholecystectomy hysterectomy tubal ligation; tobacco use alcohol use; nursing notes reviewed Atrial Fibrillation: Yes Anxiety: Yes Depression: Yes Cardiovascular Problems: Yes COPD: Yes Cerebrovascular Accident: Yes (cva) Diminished Hearing: No GERD: Yes Hypertension: Yes Respiratory: Yes (COPD, uses oxygen at home as needed) Immunizations Current: No Tetanus Vaccination: < 5 Years Influenza Vaccination: No ?: Not LMP: 02/18/18 : 3 Para: 3 Miscarriage: 0 : 0 Tubal Ligation: Yes Past Surgical History Cholecystectomy: Yes Hysterectomy: Yes Other Surgery: Yes (hernia repair) Social History Alcohol Use: Yes (socially beer 12pk on weekends) Tobacco Use: Yes ( 1 pack every 4 days) Substance Use: No Allergies-Medications (Allergen,Severity, Reaction): Coded Allergies: levofloxacin (Unverified Allergy, Severe, Anaphylaxis, 02/18/18) Reported Meds & Prescriptions Reported Meds & Active Scripts Active Zofran (Ondansetron HCl) 4 Mg Tab 4 Mg PO Q6HR PRN Proventil Hfa 6.7 GM Inh (Albuterol Sulfate) 90 Mcg/Act Aer 2 Puff INH Q4-6H PRN Albuterol Neb (Albuterol Sulfate) 2.5 Mg/3 Ml Neb 2.5 Mg NEB Q4HR NEB PRN Reported [oxygen @2LPM via NC ] DIRECTED PRN Cymbalta DR (Duloxetine HCl) 60 Mg Capdr 80 Mg PO DAILY Omeprazole 40 Mg Cap 40 Mg PO DAILY Diltiazem (Diltiazem HCl) 60 Mg Tab 80 Mg PO TID Olanzapine 5 Mg Tab 10 Mg PO HS Review of Systems Except as stated in HPI: all other systems reviewed are Neg General / Constitutional: No: Fever, Chills Eyes: No: Visual changes HENT: No: Headaches, Vertigo, Lightheadedness Cardiovascular: No: Chest Pain or Discomfort, Palpitations, Irregular Rhythm Respiratory: No: Cough, Shortness of Breath Gastrointestinal: Positive: Nausea, Vomiting, Diarrhea, Abdominal Pain, No: Hematemesis, Hematochezia Genitourinary: No: Dysuria, Flank Pain Musculoskeletal: No: Myalgias, Arthralgias Skin: No Rash Neurologic: No: Weakness, Dizziness, Syncope Psychiatric: No: Anxiety Hematologic/Lymphatic: No: Lymph Node Enlargement Physical Exam Narrative GENERAL: Well-developed well-nourished female in no acute distress no respiratory distress SKIN: Warm and dry. HEAD: Normocephalic. EYES: No scleral icterus. No injection or drainage. NECK: Supple, trachea midline. No JVD or lymphadenopathy. CARDIOVASCULAR: Regular rate and rhythm without murmurs, gallops, or rubs. RESPIRATORY: Breath sounds equal bilaterally. No accessory muscle use. GASTROINTESTINAL: Abdomen soft, non-tender, nondistended. MUSCULOSKELETAL: No cyanosis, or edema. BACK: Nontender without obvious deformity. No CVA tenderness. Data Data Last Documented VS Vital Signs Date Time Temp Pulse Resp B/P (MAP) Pulse Ox O2 Delivery O2 Flow Rate FiO2 02/18/18 22:49 103 16 145/84 (104) 97 Nasal Cannula 2.00 02/18/18 17:52 98.5 Orders Orders Complete Blood Count With Diff (02/18/18 19:37) Comprehensive Metabolic Panel (02/18/18 19:37) Urinalysis - C+S If Indicated (02/18/18 19:37) Iv Access Insert/Monitor (02/18/18 19:37) Ecg Monitoring (02/18/18 19:37) Oximetry (02/18/18 19:37) Ondansetron Inj (Zofran Inj) (02/18/18 19:45) Chest, Single Ap (02/18/18 19:37) Magnesium (Mg) (02/18/18 19:37) Alcohol (Ethanol) (02/18/18 19:37) Abdomen, Flat & Upright (02/18/18 ) Ed Urine Pregnancytest Poc (02/18/18 19:37) Urine Culture (02/18/18 20:26) Ed Discharge Order (02/18/18 22:30) Labs Laboratory Tests Test 02/18/18 20:18 02/18/18 20:26 White Blood Count 11.7 TH/MM3 Red Blood Count 4.56 MIL/MM3 Hemoglobin 9.1 GM/DL Hematocrit 29.5 % Mean Corpuscular Volume 64.7 FL Mean Corpuscular Hemoglobin 20.0 PG Mean Corpuscular Hemoglobin Concent 30.9 % Red Cell Distribution Width 19.5 % Platelet Count 241 TH/MM3 Mean Platelet Volume 7.2 FL Neutrophils (%) (Auto) 85.5 % Lymphocytes (%) (Auto) 9.7 % Monocytes (%) (Auto) 4.5 % Eosinophils (%) (Auto) 0.1 % Basophils (%) (Auto) 0.2 % Neutrophils # (Auto) 10.1 TH/MM3 Lymphocytes # (Auto) 1.1 TH/MM3 Monocytes # (Auto) 0.5 TH/MM3 Eosinophils # (Auto) 0.0 TH/MM3 Basophils # (Auto) 0.0 TH/MM3 CBC Comment AUTO DIFF Differential Comment AUTO DIFF CONFIRMED Ovalocytes Stomatocytes 2+ Blood Urea Nitrogen 8 MG/DL Creatinine 0.67 MG/DL Random Glucose 89 MG/DL Total Protein 7.2 GM/DL Albumin 2.9 GM/DL Calcium Level 8.4 MG/DL Magnesium Level 1.5 MG/DL Alkaline Phosphatase 107 U/L Aspartate Amino Transf (AST/SGOT) 33 U/L Alanine Aminotransferase (ALT/SGPT) 29 U/L Total Bilirubin 0.3 MG/DL Sodium Level 132 MEQ/L Potassium Level 3.5 MEQ/L Chloride Level 98 MEQ/L Carbon Dioxide Level 25.4 MEQ/L Anion Gap 9 MEQ/L Estimat Glomerular Filtration Rate 95 ML/MIN Ethyl Alcohol Level LESS THAN 3 MG/DL Urine Color YELLOW Urine Turbidity CLOUDY Urine pH 6.0 Urine Specific [place] 1.025 Urine Protein 100 mg/dL Urine Glucose (UA) NEG mg/dL Urine Ketones TRACE mg/dL Urine Occult Blood LARGE Urine Nitrite NEG Urine Bilirubin NEG Urine Urobilinogen 1.0 MG/DL Urine Leukocyte Esterase TRACE Urine RBC 50-99 /hpf Urine WBC 25-49 /hpf Urine Squamous Epithelial Cells > 8 /hpf Urine Bacteria FEW /hpf Urine Mucus MOD /lpf Urine Trichomonas MANY Microscopic Urinalysis Comment CULTURE INDICATED MDM Medical Decision Making Medical Screen Exam Complete: Yes Emergency Medical Condition: Yes Medical Record Reviewed: Yes Interpretation(s) Last Impressions Chest X-Ray 02/18/18 1937 Signed Impressions: Service Date/Time: January 20:13 - CONCLUSION: 1. No active disease. Evans Dodson MD Abdomen X-Ray 02/18/18 0000 Signed Impressions: Service Date/Time: , February 18, 2018 20:13 - CONCLUSION: 1. No acute findings. Previous ventral hernia repair. Previous cholecystectomy. Evans Dodson MD CBC & BMP Diagram 02/18/18 20:18 Total Protein 7.2, Albumin 2.9 L, Calcium Level 8.4 L, Magnesium Level 1.5, Alkaline Phosphatase 107, Aspartate Amino Transf (AST/SGOT) 33, Alanine Aminotransferase (ALT/SGPT) 29, Total Bilirubin 0.3 Vital Signs Date Time Temp Pulse Resp B/P (MAP) Pulse Ox O2 Delivery O2 Flow Rate FiO2 02/18/18 22:49 103 16 145/84 (104) 97 Nasal Cannula 2.00 02/18/18 20:40 94 16 140/89 (106) 97 Nasal Cannula 2.00 02/18/18 19:08 102 16 92 Room Air 02/18/18 17:52 98.5 118 18 174/82 (112) 96 Differential Diagnosis Vomiting diarrhea gastroenteritis electrolyte disturbance dehydration renal insufficiency colitis bowel obstruction exacerbation COPD alcohol withdrawal Narrative Course IV access obtained specimens collected and sent for resulting Lab values resulted and found to be grossly within normal Labs resulted in total white cell count 11,000 with chronic anemia hemoglobin 9.1 abdominal x-ray reveals no obstructive pattern or free air chemistries are grossly within normal range urinalysis shows white blood cells few bacteria and trichomonas Serum alcohol is less than 3 After IV fluids and Zofran patient clinically improved and desirous of being discharged home; patient informed of lab results and need for close follow-up with primary care provider; patient provided prescription for antiemetic Diagnosis Primary Impression: Gastroenteritis Additional Impression: H/O trichomonal vaginitis Referrals: Primary Care Physician call for appointment Patient Instructions: General Instructions Additional Instructions: Increase fluid hydration Follow-up clear liquid diet for next 1224 hrs. advance diet as tolerated Take medication as prescribed as needed for nausea and/or vomiting Take medication as prescribed due to vaginosis Follow-up with your primary care provider Return the emergency department for any concerns or change in condition Med/Other Pt SpecificInfo: Prescription(s) given Scripts Ondansetron Odt (Zofran Odt) 4 Mg Tab 4 MG SL Q6HR Y for Nausea/Vomiting, #6 TAB 0 Refills Prov: Rola Palmer MD 02/19/18 Metronidazole Vaginal Gel (Metrogel Vaginal Gel) 0.75 % Gel 1 APPL VAGINAL HS for Infection for 5 Days, #1 TUBE 0 Refills Prov: Rola Palmer MD 02/19/18 Disposition: 01 DISCHARGE HOME Condition: Stable Rola Palmer MD Feb 18, 2018 22:11
[2018-02-18 22:49] VITALS: BP 145/84
[2018-02-19] MEDS ORDERED: METR0.7528 VAGINAL (06:10)
[2018-02-19] MEDS ORDERED: ZOFR4TAB3 SL (06:10)
== END 2018-02-18 22:53 | disposition home or self-care (01) ==
LOC: PHED 17:31
DX: K52.9 Noninfective gastroenteritis and colitis, unspecified (principal); A59.01 Trichomonal vulvovaginitis; D64.9 Anemia, unspecified; R82.99 Other abnormal findings in urine; I10 Essential (primary) hypertension; I48.91 Unspecified atrial fibrillation; K21.9 Gastro-esophageal reflux disease without esophagitis; J44.9 Chronic obstructive pulmonary disease, unspecified; F41.8 Other specified anxiety disorders; Z79.899 Other long term (current) drug therapy; Z72.0 Tobacco use; Z86.73 Personal history of transient ischemic attack (TIA), and cerebral infarction without residual deficits
CPT/HCPCS: 71045; 74019; 80053; 80307; 81001; 83735; 84703; 85025; 87086; 96374; 99284; J2405

== ENCOUNTER 2018-03-24 22:43 | Emergency (ER) | payer MEDICARE, OTHER ==
[~2018-03-24] VITALS: Ht 157.5 cm; Wt 83.1 kg
[~2018-03-24 22:43] MED LIST changes: +CYMB60CA PO; +METR0.7528 VAGINAL; -OMEP20TA93 PO; +OMEP40CA2 PO; +OXYGEN; -PRED50 PO; -PRIL20TA2; +ZOFR4TAB3 SL
[2018-03-24 22:56] VITALS: BP 137/86; PULSE 102; RESP 20; TEMP 99; O2SAT 96
[2018-03-24] MEDS ORDERED: methylPREDNISolone SOD SUCC 125 MG/2 ML VIAL IV PUSH ONE (23:15)
[2018-03-24] MEDS ORDERED: LORazepam 2 MG/ML VIAL IV PUSH ONE (23:15)
--- NOTE | 2018-03-24 23:17 | PD ---
HPI Chief Complaint: Respiratory Symptoms Time Seen by Provider: 23:09 Travel History International Travel<30 days: No Contact w/Intl Traveler<30days: No Traveled to known affect area: No History of Present Illness HPI 47yo F with PMH of COPD on home O2 2L NC at night, anxiety, CVA presents to the ED with c/o sob, cough for 2 days. Said she ran out of her inhaler. Pt also complains of chest pain, fever, nausea, vomiting, diarrhea. Denies any abdominal pain, new focal weakness or numbness. PFSH Past Medical History Atrial Fibrillation: Yes Anxiety: Yes Depression: Yes Cardiovascular Problems: Yes COPD: Yes Cerebrovascular Accident: Yes (cva) Diminished Hearing: No GERD: Yes Hypertension: Yes Respiratory: Yes Immunizations Current: No Tetanus Vaccination: < 5 Years Influenza Vaccination: Yes ?: Unknown LMP: NOW : 3 Para: 3 Miscarriage: 0 : 0 Tubal Ligation: Yes Past Surgical History Cholecystectomy: Yes Hysterectomy: Yes Other Surgery: Yes (hernia repair) Social History Alcohol Use: Yes Tobacco Use: Yes ( 1 pack every 4 days) Substance Use: No Allergies-Medications (Allergen,Severity, Reaction): Coded Allergies: levofloxacin (Unverified Allergy, Severe, Anaphylaxis, 03/24/18) Reported Meds & Prescriptions Reported Meds & Active Scripts Active Zofran Odt (Ondansetron Odt) 4 Mg Tab 4 Mg SL Q6HR PRN Metrogel Vaginal Gel (Metronidazole Vaginal Gel) 0.75 % Gel 1 Appl VAGINAL HS 5 Days Zofran (Ondansetron HCl) 4 Mg Tab 4 Mg PO Q6HR PRN Proventil Hfa 6.7 GM Inh (Albuterol Sulfate) 90 Mcg/Act Aer 2 Puff INH Q4-6H PRN Albuterol Neb (Albuterol Sulfate) 2.5 Mg/3 Ml Neb 2.5 Mg NEB Q4HR NEB PRN Reported [oxygen @2LPM via NC ] DIRECTED PRN Tamaraalta DR (Duloxetine HCl) 60 Mg Capdr 80 Mg PO DAILY Omeprazole 40 Mg Cap 40 Mg PO DAILY Diltiazem (Diltiazem HCl) 60 Mg Tab 80 Mg PO TID Olanzapine 5 Mg Tab 10 Mg PO HS Review of Systems Except as stated in HPI: all other systems reviewed are Neg Physical Exam Narrative GENERAL: 47yo F anxious appearing. SKIN: Focused skin assessment warm/dry. HEAD: Atraumatic. Normocephalic. CARDIOVASCULAR: Mild tachycardia at 102bpm. No murmur appreciated. RESPIRATORY: +accessory muscle use. Clear to auscultation. Breath sounds equal bilaterally. GASTROINTESTINAL: Abdomen soft, non-tender, nondistended. MUSCULOSKELETAL: No obvious deformities. No clubbing. No cyanosis. No edema. NEUROLOGICAL: Awake and alert. No obvious cranial nerve deficits. Motor grossly within normal limits. Normal speech. PSYCHIATRIC: Anxious. Data Data Last Documented VS Vital Signs Date Time Temp Pulse Resp B/P (MAP) Pulse Ox O2 Delivery O2 Flow Rate FiO2 03/25/18 00:47 99 18 132/71 (91) 96 Nasal Cannula 2.00 03/24/18 22:56 99.0 Orders Orders Complete Blood Count With Diff (03/24/18 23:13) Basic Metabolic Panel (Bmp) (03/24/18 23:13) Act Partial Throm Time (Ptt) (03/24/18 23:13) Prothrombin Time / Inr (Pt) (03/24/18 23:13) Magnesium (Mg) (03/24/18 23:13) Troponin I (03/24/18 23:13) Influenzae A/B Antigen (03/24/18 23:13) Electrocardiogram (03/24/18 23:13) Chest, Single Ap (03/24/18 23:13) Methylprednisolone So Succ Inj (Solumedr (03/24/18 23:15) Albuterol-Ipratropium Neb (Duoneb Neb) (03/24/18 23:15) Lorazepam Inj (Ativan Inj) (03/24/18 23:15) Ondansetron Inj (Zofran Inj) (03/24/18 23:30) Guaifen-Cod 200-20 Mg/10ml Liq (Robituss (03/25/18 00:00) Labs Laboratory Tests Test 03/24/18 23:41 White Blood Count 9.8 TH/MM3 Red Blood Count 4.68 MIL/MM3 Hemoglobin 9.3 GM/DL Hematocrit 30.2 % Mean Corpuscular Volume 64.7 FL Mean Corpuscular Hemoglobin 19.9 PG Mean Corpuscular Hemoglobin Concent 30.8 % Red Cell Distribution Width 20.0 % Platelet Count 261 TH/MM3 Mean Platelet Volume 7.3 FL CBC Comment AUTO DIFF Differential Total Cells Counted 100 Neutrophils % (Manual) 53 % Lymphocytes % 39 % Monocytes % 7 % Basophils % 1 % Neutrophils # (Manual) 5.2 TH/MM3 Differential Comment FINAL DIFF MANUAL Platelet Estimate NORMAL Platelet Morphology Comment NORMAL Prothrombin Time 9.5 SEC Prothromb Time International Ratio 0.9 RATIO Activated Partial Thromboplast Time 25.0 SEC Blood Urea Nitrogen 5 MG/DL Creatinine 0.69 MG/DL Random Glucose 100 MG/DL Calcium Level 8.6 MG/DL Magnesium Level 2.0 MG/DL Sodium Level 136 MEQ/L Potassium Level 3.6 MEQ/L Chloride Level 104 MEQ/L Carbon Dioxide Level 23.1 MEQ/L Anion Gap 9 MEQ/L Estimat Glomerular Filtration Rate 92 ML/MIN Troponin I LESS THAN 0.02 NG/ML MDM Medical Decision Making Medical Screen Exam Complete: Yes Emergency Medical Condition: Yes Interpretation(s) EKG: Sinus tachycardia at 101bpm. Normal axis. No ST segment elevation or depression. Differential Diagnosis COPD exacerbation vs. pneumonia vs. URI vs. viral syndrome Narrative Course 47yo F with COPD here with complaints consistent with viral syndrome. Pt has anxiety as well and appears very anxious so will give ativan as well as duonebs x3 and methylprednisolone since pt has COPD and feels sob. Labs reviewed, no leukocytosis. H/H 9.3/30.2. This is unchanged from prior. Troponin negative. BMP unremarkable. Influenza negative. CXR negative. Pt reevaluated after medication and said she feels much better. Denies any sob or chest pain. Do not think this is cardiac, chest pain is with coughing. Pt uses 2L NC at night at home and saturating at 96% on 2L NC. Return precautions given. Diagnosis Primary Impression: COPD exacerbation Patient Instructions: General Instructions Departure Forms: Tests/Procedures Additional Instructions: Please follow up with your primary care physician in 2-3 days. Return to the ED if symptoms worsen. Med/Other Pt SpecificInfo: Prescription(s) given Scripts Dextromethorphan (Robitussin Lingering Cold) 15 Mg Cap 30 MG PO Q8H Y for COUGH for 5 Days, #30 CAP 0 Refills Prov: Josefina Simon DO 03/25/18 Albuterol 18 GM Inh (Ventolin Hfa 18 GM Inh) 90 Mcg/Act Aer 2 PUFF INH Q4H Y for SHORTNESS OF BREATH, #1 INHALER 0 Refills Prov: Josefina Simon DO 03/25/18 Prednisone (Prednisone) 20 Mg Tab 40 MG PO DAILY for 5 Days, #10 TAB 0 Refills Take 40 mg (2 tablets) daily for 5 days Prov: Josefina Simon DO 03/25/18 Disposition: 01 DISCHARGE HOME Condition: Stable Josefina Simon DO Mar 24, 2018 23:17
[2018-03-24] MEDS ORDERED: ONDANSETRON HCL 4 MG/2 ML VIAL IV PUSH ONE (23:30)
--- NOTE | 2018-03-24 23:34 | RADRPT ---
EXAM DATE/TIME: 03/24/2018 23:20 [facility] COMPARISON: CHEST SINGLE AP, February 18, 2018, 20:13. INDICATIONS : Short of breath and cough. MEDICAL HISTORY : Hypertension. Chronic obstructive pulmonary disease. Gastroesophageal reflux disease. Afib. CVA. SURGICAL HISTORY : Hysterectomy. Tubal ligation. Cholecystectomy. Hernia repair. ENCOUNTER: Initial ACUITY: 3 days PAIN SCORE: 0/10 LOCATION: Bilateral chest FINDINGS: A single view of the chest demonstrates the lungs to be symmetrically aerated without evidence of mas s, infiltrate or effusion. The cardiomediastinal contours are unremarkable. Osseous structures are intact. CONCLUSION: No acute disease. Elier Artis MD on March 24, 2018 at 23:32 Board Certified Radiologist. This report was verified electronically.
[2018-03-24] MEDS: RESP: ALBUTEROL 2.5 MG/IPRATROPIUM 0.5 MG NEB (SCH) INH (23:35)
[2018-03-24 23:51] LABS: HEMATOCRIT 30.2 % (35.0-46.0); HEMOGLOBIN 9.3 GM/DL (11.6-15.3); MEAN CELL VOLUME 64.7 FL (80.0-100.0); MEAN CORPUSCULAR HEMOGLOBIN 19.9 PG (27.0-34.0); MEAN CORPUSCULAR HGB CONC 30.8 % (32.0-36.0); MEAN PLATELET VOLUME 7.3 FL (7.0-11.0); PLATELET COUNT 261 TH/MM3 (150-450); RED BLOOD COUNT 4.68 MIL/MM3 (4.00-5.30); WHITE BLOOD COUNT 9.8 TH/MM3 (4.0-11.0)
[2018-03-24 23:57] LABS: CHLORIDE 104 MEQ/L (98-107); SODIUM (NA) 136 MEQ/L (136-145)
[2018-03-25] LABS: BICARBONATE 23.1 MEQ/L (21.0-32.0); CALCIUM 8.6 MG/DL (8.5-10.1); GLUCOSE,RANDOM 100 MG/DL (74-106)
[2018-03-25] MEDS ORDERED: guaiFENesin/CODEINE SYRUP 200 MG/20 MG/10 ML CUP PO ONE
[2018-03-25 00:01] LABS: BLOOD UREA NITROGEN 5 MG/DL (7-18)
[2018-03-25 00:03] LABS: INTERNATIONAL NORMALIZED RATIO 0.9 RATIO; PROTHROMBIN TIME - PATIENT 9.5 SEC (9.8-11.6)
[2018-03-25 00:04] LABS: CREATININE 0.69 MG/DL (0.50-1.00); GLOMERULAR FILTRATION RATE 92 ML/MIN (>89)
[2018-03-25 00:10] LABS: BASOPHILS 1 % (0-2); LYMPHOCYTES 39 % (9-44); MONOCYTES 7 % (0-8); NEUTROPHIL # MANUAL DIFF 5.2 TH/MM3 (1.8-7.7); POLYS (SEG NEUTROPHILS) 53 % (16-70); TROPONIN I LESS THAN 0.02 NG/ML (0.02-0.05)
[2018-03-25 00:47] VITALS: BP 132/71; PULSE 99; RESP 18; O2SAT 96
[2018-03-25] MEDS ORDERED: ROBICAP2 PO (01:05)
[2018-03-25] MEDS ORDERED: VENTAER INH (01:05)
[2018-03-25] MEDS ORDERED: PRED20 PO (01:05)
[2018-03-25 01:22] VITALS: BP 135/64
--- NOTE | 2018-03-25 16:37 | EKG ---
Date Performed: 03/24/2018 Time Performed: 23:22:31 PTAGE: 47 years EKG: SINUS TACHYCARDIA ABNORMAL RHYTHM ECG PREVIOUS TRACING : 12/06/2017 19.44 Since the previous tracing, no significant change noted DOCTOR: Kulwant Tong Interpretating Date/Time 03/25/2018 16:31:47
== END 2018-03-25 01:51 | disposition home or self-care (01) ==
LOC: PHED 22:43
DX: J44.1 Chronic obstructive pulmonary disease with (acute) exacerbation (principal); I10 Essential (primary) hypertension; F17.200 Nicotine dependence, unspecified, uncomplicated; K21.9 Gastro-esophageal reflux disease without esophagitis; Z79.899 Other long term (current) drug therapy
CPT/HCPCS: 71045; 80048; 83735; 84484; 85007; 85027; 85610; 85730; 87804; 93005; 94640; 94664; 96374; 96375; 99285; J2060; J2405; J2930

== ENCOUNTER 2018-04-16 21:08 | Inpatient (IN) | payer MEDICARE, OTHER ==
[~2018-04-16] VITALS: Ht 157.5 cm; Wt 81.7 kg
[~2018-04-16 21:08] MED LIST changes: +PRED20 PO; +ROBICAP2 PO; +VENTAER INH
[2018-04-16 21:39] VITALS: BP 161/86; PULSE 96; RESP 18; TEMP 98.1; O2SAT 99
[2018-04-16] MEDS ORDERED: ALPRAZolam 0.5 MG TAB PO ONE (22:15)
--- NOTE | 2018-04-16 22:39 | PD ---
HPI Chief Complaint: Psychiatric Symptoms Time Seen by Provider: 21:50 Travel History International Travel<30 days: No Contact w/Intl Traveler<30days: No Traveled to known affect area: No History of Present Illness HPI Patient is a 48-year-old female presenting to [facility] under [facility] act for psychiatric evaluation. Per the Lazo act report patient advised that she is done with everything due to multiple deaths in her family. Patient also said that she is tired of her chronic health problems. Patient reports compliance with Zoloft. She states her primary doctor took her off of Lorazepam 4 months ago, this helped her symptoms. She reports feeling very anxious. She denies any previous suicide attempt. Patient states that she had been drinking and just started staying things. He currently denies any suicidal ideations, hallucinations. Patient's daughter called 911 this patient reported suicidal ideations to her initially. Patient reports a history of COPD , CVA with residual right-sided weakness, atrial fibrillation, hypertension, anxiety, depression. She is O2 dependent at night at 3 L. She has no physical complaints at this time. PFSH Past Medical History Atrial Fibrillation: Yes Anxiety: Yes Depression: Yes COPD: Yes Cerebrovascular Accident: Yes (With residual right-sided weakness) GERD: Yes Hypertension: Yes : 3 Para: 3 Miscarriage: 0 : 0 Tubal Ligation: Yes Past Surgical History Cholecystectomy: Yes Hysterectomy: Yes Other Surgery: Yes (hernia repair) Social History Alcohol Use: Yes Tobacco Use: Yes ( 1 pack every 4 days) Substance Use: No Allergies-Medications (Allergen,Severity, Reaction): Coded Allergies: levofloxacin (Unverified Allergy, Severe, Anaphylaxis, 03/24/18) Reported Meds & Prescriptions Reported Meds & Active Scripts Active Robitussin Lingering Cold (Dextromethorphan HBr) 15 Mg Cap 30 Mg PO Q8H PRN 5 Days Ventolin Hfa 18 GM Inh (Albuterol Sulfate) 90 Mcg/Act Aer 2 Puff INH Q4H PRN Prednisone 20 Mg Tab 40 Mg PO DAILY 5 Days Take 40 mg (2 tablets) daily for 5 days Zofran Odt (Ondansetron Odt) 4 Mg Tab 4 Mg SL Q6HR PRN Metrogel Vaginal Gel (Metronidazole Vaginal Gel) 0.75 % Gel 1 Appl VAGINAL HS 5 Days Zofran (Ondansetron HCl) 4 Mg Tab 4 Mg PO Q6HR PRN Proventil Hfa 6.7 GM Inh (Albuterol Sulfate) 90 Mcg/Act Aer 2 Puff INH Q4-6H PRN Albuterol Neb (Albuterol Sulfate) 2.5 Mg/3 Ml Neb 2.5 Mg NEB Q4HR NEB PRN Reported [oxygen @2LPM via NC ] DIRECTED PRN Cymbalta DR (Duloxetine HCl) 60 Mg Capdr 80 Mg PO DAILY Omeprazole 40 Mg Cap 40 Mg PO DAILY Diltiazem (Diltiazem HCl) 60 Mg Tab 80 Mg PO TID Olanzapine 5 Mg Tab 10 Mg PO HS Review of Systems Except as stated in HPI: all other systems reviewed are Neg Psychiatric: Positive: Anxiety, Depression, Suicidal Ideations, Substance Abuse Physical Exam Narrative GENERAL: Overweight, well-developed, alert female. Presenting in no acute distress. SKIN: Warm and dry. HEAD: Atraumatic. Normocephalic. EYES: Pupils equal and round. No scleral icterus. No injection or drainage. ENT: No nasal bleeding or discharge. Mucous membranes pink and moist. NECK: Trachea midline. No JVD. CARDIOVASCULAR: Regularly regular RESPIRATORY: No accessory muscle use. Scattered expiratory wheezes. GASTROINTESTINAL: Abdomen soft, non-tender, nondistended. Hepatic and splenic margins not palpable. MUSCULOSKELETAL: Extremities without clubbing, cyanosis, or edema. No obvious deformities. NEUROLOGICAL: Awake and alert. No obvious cranial nerve deficits. Motor grossly within normal limits. Five out of 5 muscle strength in the arms and legs. Normal speech. PSYCHIATRIC: Appropriate mood and affect; insight and judgment normal. Data Data Last Documented VS Vital Signs Date Time Temp Pulse Resp B/P (MAP) Pulse Ox O2 Delivery O2 Flow Rate FiO2 04/16/18 22:50 100 Nasal Cannula 3.00 04/16/18 21:39 98.1 96 18 161/86 (111) Orders Orders Complete Blood Count With Diff (04/16/18 21:50) Comprehensive Metabolic Panel (04/16/18 21:50) Thyroid Stimulating Hormone (04/16/18 21:50) Urinalysis - C+S If Indicated (04/16/18 21:50) Psych Screen (04/16/18 21:50) Drug Screen, Random Urine (04/16/18 21:50) Alcohol (Ethanol) (04/16/18 21:50) Salicylates (Aspirin) (04/16/18 21:50) Tylenol (Acetaminophen) (04/16/18 21:50) Alprazolam (Xanax) (04/16/18 22:15) Albuterol-Ipratropium Neb (Duoneb Neb) (04/16/18 23:15) Budesonide Neb (Pulmicort Respule Neb) (04/16/18 23:15) Diltiazem (Cardizem) (04/16/18 23:30) Diet Regular Basic (04/17/18 Breakfast) Alcohol Withdrawal Asmt-Ciwa ONCE (04/16/18 23:26) Ondansetron Odt (Zofran Odt) (04/16/18 23:30) Acetaminophen (Tylenol) (04/16/18 23:30) Albuterol Neb (Albuterol Neb) (04/16/18 23:30) Flumazenil Inj (Romazicon Inj) (04/16/18 23:30) Lorazepam (Ativan) (04/16/18 23:30) Lorazepam Inj (Ativan Inj) (04/16/18 23:30) Lorazepam (Ativan) (04/16/18 23:30) Lorazepam Inj (Ativan Inj) (04/16/18 23:30) Lorazepam Inj (Ativan Inj) (04/16/18 23:30) Lorazepam Inj (Ativan Inj) (04/16/18 23:30) Labs Laboratory Tests Test 04/16/18 21:40 White Blood Count 11.9 TH/MM3 Red Blood Count 4.95 MIL/MM3 Hemoglobin 9.6 GM/DL Hematocrit 32.3 % Mean Corpuscular Volume 65.3 FL Mean Corpuscular Hemoglobin 19.4 PG Mean Corpuscular Hemoglobin Concent 29.7 % Red Cell Distribution Width 20.2 % Platelet Count 308 TH/MM3 Mean Platelet Volume 7.9 FL Neutrophils (%) (Auto) 61.8 % Lymphocytes (%) (Auto) 31.1 % Monocytes (%) (Auto) 5.5 % Eosinophils (%) (Auto) 0.6 % Basophils (%) (Auto) 1.0 % Neutrophils # (Auto) 7.4 TH/MM3 Lymphocytes # (Auto) 3.7 TH/MM3 Monocytes # (Auto) 0.7 TH/MM3 Eosinophils # (Auto) 0.1 TH/MM3 Basophils # (Auto) 0.1 TH/MM3 CBC Comment DIFF FINAL Differential Comment Urine Color LIGHT-YELLOW Urine Turbidity CLEAR Urine pH 5.5 Urine Specific [place] 1.005 Urine Protein NEG mg/dL Urine Glucose (UA) NEG mg/dL Urine Ketones NEG mg/dL Urine Occult Blood NEG Urine Nitrite NEG Urine Bilirubin NEG Urine Urobilinogen LESS THAN 2.0 MG/DL Urine Leukocyte Esterase NEG Urine RBC LESS THAN 1 /hpf Urine WBC 1 /hpf Urine Squamous Epithelial Cells 4 /hpf Microscopic Urinalysis Comment CULT NOT INDICATED Blood Urea Nitrogen 6 MG/DL Creatinine 0.78 MG/DL Random Glucose 84 MG/DL Total Protein 7.7 GM/DL Albumin 3.1 GM/DL Calcium Level 8.5 MG/DL Alkaline Phosphatase 115 U/L Aspartate Amino Transf (AST/SGOT) 36 U/L Alanine Aminotransferase (ALT/SGPT) 23 U/L Total Bilirubin 0.2 MG/DL Sodium Level 132 MEQ/L Potassium Level 4.0 MEQ/L Chloride Level 95 MEQ/L Carbon Dioxide Level 19.6 MEQ/L Anion Gap 17 MEQ/L Estimat Glomerular Filtration Rate 79 ML/MIN Thyroid Stimulating Hormone 3rd Gen 1.540 uIU/ML Salicylates Level 4.5 MG/DL Urine Opiates Screen NEG Acetaminophen Level LESS THAN 2.0 MCG/ML Urine Barbiturates Screen NEG Urine Amphetamines Screen NEG Urine Benzodiazepines Screen NEG Urine Cocaine Screen NEG Urine Cannabinoids Screen NEG Ethyl Alcohol Level 266 MG/DL MDM Medical Decision Making Medical Screen Exam Complete: Yes Emergency Medical Condition: Yes Interpretation(s) Vital Signs Date Time Temp Pulse Resp B/P (MAP) Pulse Ox O2 Delivery O2 Flow Rate FiO2 04/16/18 22:50 100 Nasal Cannula 3.00 04/16/18 21:39 98.1 96 18 161/86 (111) 99 Room Air Differential Diagnosis Mood disorder versus depression versus psychosis versus delirium versus intoxication versus other Narrative Course Patient is a 48-year-old female presenting to the emergency department under Lazo act for psychiatric evaluation. Patient's vital signs are stable, Mental health screening discussed with the patient. Psychiatric screen ordered. Patient was initially seen and [facility], due to patient's medical history and need for O2 at night she was moved to [facility]. Patient was given a DuoNeb treatment as well as budesonide. She was given Xanax for anxiety. Patient is resting comfortably. CBC with a mild anemia with a hemoglobin 9.6/32.3 this is stable when compared to prior. Chemistry with no acute findings. Urine drug screen is negative, alcohol level is 266. Urinalysis is unremarkable. Patient was placed on [facility] protocol while waiting for psychiatric evaluation. Patient is medically cleared at this time. Diagnosis Primary Impression: Medical clearance for psychiatric admission Additional Impression: Alcohol intoxication Qualified Codes: F10.920 - Alcohol use, unspecified with intoxication, uncomplicated Condition: Stable Erica Gomez [facility] April 16, 2018 22:39
[2018-04-16 22:53] LABS: BILIRUBIN, URINE NEG (NEG); BLOOD, URINE NEG (NEG); GLUCOSE,URINE NEG (NEG); KETONE, URINE NEG (NEG); NITRITE,URINE NEG (NEG); PH, URINE 5.5 (5.0-8.5); SQUAMOUS EPITHELIAL CELL URINE 4 /hpf (0-5); URINE COLOR LIGHT-YELLOW (YELLW/STRAW); URINE LEUKOCYTE ESTERASE NEG (NEG)
[2018-04-16 23:06] LABS: ALBUMIN 3.1 GM/DL (3.4-5.0); ALT (GPT) 23 U/L (10-53); AST (GOT) 36 U/L (15-37); BICARBONATE 19.6 MEQ/L (21.0-32.0); BLOOD UREA NITROGEN 6 MG/DL (7-18); CALCIUM 8.5 MG/DL (8.5-10.1); CHLORIDE 95 MEQ/L (98-107); CREATININE 0.78 MG/DL (0.50-1.00); GLOMERULAR FILTRATION RATE 79 ML/MIN (>89); GLUCOSE,RANDOM 84 MG/DL (74-106); SODIUM (NA) 132 MEQ/L (136-145)
[2018-04-16 23:10] LABS: AUTOMATED NEUTROPHIL # 7.4 TH/MM3 (1.8-7.7); BASOPHIL # 0.1 TH/MM3 (0-0.2); EOSINOPHIL # 0.1 TH/MM3 (0-0.4); EOSINOPHIL % 0.6 % (0.0-4.0); HEMATOCRIT 32.3 % (35.0-46.0); HEMOGLOBIN 9.6 GM/DL (11.6-15.3); LYMPH % 31.1 % (9.0-44.0); LYMPHOCYTE # 3.7 TH/MM3 (1.0-4.8); MEAN CELL VOLUME 65.3 FL (80.0-100.0); MEAN CORPUSCULAR HEMOGLOBIN 19.4 PG (27.0-34.0); MEAN PLATELET VOLUME 7.9 FL (7.0-11.0); MONO % 5.5 % (0.0-8.0); MONOCYTE # 0.7 TH/MM3 (0-0.9); NEUT % 61.8 % (16.0-70.0); PLATELET COUNT 308 TH/MM3 (150-450); RED BLOOD COUNT 4.95 MIL/MM3 (4.00-5.30); RED CELL DISTRIBUTION WIDTH 20.2 % (11.6-17.2); WHITE BLOOD COUNT 11.9 TH/MM3 (4.0-11.0)
[2018-04-16] MEDS ORDERED: RESP: BUDESONIDE 0.5 MG/2 ML NEB NEB ONE (23:15)
[2018-04-16] MEDS ORDERED: RESP: ALBUTEROL 2.5 MG/IPRATROPIUM 0.5 MG NEB (SCH) NEB ONE (23:15)
[2018-04-16 23:16] LABS: ALKALINE PHOSPHATASE 115 U/L (45-117); TOTAL BILIRUBIN ADULT 0.2 MG/DL (0.2-1.0); TOTAL PROTEIN 7.7 GM/DL (6.4-8.2)
[2018-04-16 23:18] LABS: ACETAMINOPHEN LESS THAN 2.0 MCG/ML (10.0-30.0); MEAN CORPUSCULAR HGB CONC 29.7 % (32.0-36.0)
[2018-04-16 23:20] VITALS: O2SAT 98
[2018-04-16] MEDS ORDERED: FLUMAZENIL 0.5 MG/5 ML VIAL IV PUSH PRN (23:30)
[2018-04-16] MEDS ORDERED: ACETAMINOPHEN 325 MG TAB PO PRN (23:30)
[2018-04-16] MEDS ORDERED: ONDANSETRON ODT 4 MG TAB PO PRN (23:30)
[2018-04-16] MEDS ORDERED: DILTIAZEM HCL 60 MG TAB PO ONE (23:30)
[2018-04-16] MEDS ORDERED: LORazepam 2 MG/ML VIAL IV PUSH PRN ×4 (23:30)
[2018-04-16] MEDS ORDERED: LORazepam 2 MG TAB PO PRN (23:30)
[2018-04-17 06:03] VITALS: BP 132/62; PULSE 89; RESP 16; O2SAT 98
[2018-04-17] MEDS: RESP: ALBUTEROL 2.5 MG/3 ML NEB (PRN) NEB ×2 (06:22→17:17)
--- NOTE | 2018-04-17 08:24 | HHI.HP ---
Provisional Diagnosis Admission Date 04/17/18 [place] I. 1. Adjustment disorder with depressed mood Rule out major depressive episode Rule out some degree of alcohol-induced mood disorder 2. Alcohol dependence [place] II. Deferred Certification of Person's Competence To Provide Express and Informed Consent I have personally examined Haritha Fox , a person being served at [facility] on, April 17, 2018 08:24. Express and informed consent means consent voluntarily given in writing, by a competent person, after sufficient explanation and disclosure of the subject matter involved to enable the person to make a knowing and willful decision without any element of force, fraud, deceit, duress, or other form of constraint or coercion. This person is 18 years of age or older, is not now known to be incompetent to consent to treatment with a guardian advocate, and does not have a health care surrogate or proxy currently making medical treatment decisions. I have found this person to be one of the following: [] Competent to provide express and informed consent, as defined above, for voluntary admission to this facility and is competent to provide express and informed consent for treatment. He/she has the consistent capacity to make well reasoned, willful, and knowing decisions concerning his or her medical or mental health treatment. The person fully and consistently understands the purpose of the admission for examination/placement and is fully capable of personally exercising all rights assured [place] [] Incompetent to provide express and informed consent to voluntary admission, and this is incompetent to provide express and informed consent to treatment. The person must be transferred to involuntary status and a petition for a guardian advocate filed with the Circuit Court. [x] Refusing to provide express and informed consent to voluntary admission but is competent to provide express and informed consent for treatment. The person must be discharged or transferred to involuntary status. Form shall be completed within 24 hours of a person's arrival at the receiving facility and filed in the clinical record of each person: 1. Admitted on a voluntary basis 2. Permitted to provide express and informed consent to his/her own treatment 3. Allowed to transfer from involuntary to voluntary status 4. Prior to permitting a person to consent to his or her own treatment after having been previously found incompetent to consent to treatment. History of Present Illness Capacity: Has Capacity (To consent for medication/treatment) Psych Chief Complaint: Suicidal ideation HPI Ms. Dominique is a 48-year-old female with a history of alcohol use issues as well as anxiety and depression who presents under a Lazo act alleging that she was "done" with everything. Alcohol level was 266 on presentation here. Reviewing the electronic medical record, I note that I saw the patient in consultation last March with a diagnosis of alcohol dependence. Patient seen and examined. Chart reviewed. Case discussed with staff in the ED. On my examination this morning, the patient is clinically sober. She insists that she feels "fine" this morning and is asking about discharge from the ED. She says that she just drank too heavily last night. She does admit to low mood and presents as somewhat anhedonic and withdrawn. I can elicit no hypomanic or manic symptoms. She denies any audiovisual hallucinations. I can elicit no paranoia, no ideas of reference, no feelings of thought manipulation. Remainder of the psychiatric ROS is negative. No acute physical complaints. Past psychiatric history: The patient reports a history of anxiety and depression. She is not under the care of a psychiatrist. She reports that she was psychiatrically admitted several years ago. She denies a history of suicide attempts. Family history: The patient denies a family history of mental illness or suicide. Chemical dependency history: The patient reports that she typically drinks a 4 pack of beer. She drank a pint of liquor in addition last night. She does not view her substance use as problematic. She believes that she can stop drinking whenever she wants but simply chooses not to. She denies any other substance use. Social history: The patient has 11 grade education. She is disabled. She lives with her daughter. She has 2 other children. She was 4 years ago. No reported access to guns or firearms. With the patient's permission, I have obtained collateral information from sister Penelope Strong at [phone]. Although Ms. Strong does concede that patient's psychiatric problems may be influenced by her drinking, she notes that the patient is perpetually intoxicated. She says that the patient has tried to drink Shout in the past and last night tried to drink bleach in an effort to end her life. I have recommended family pursue the [place] act as the patient seems pre-contemplative with regards to changing her pattern of substance use. Review of Systems ROS Limitations: Poor Historian Except as stated in HPI: all other systems reviewed are Neg Past Family Social History Coded Allergies: levofloxacin (Unverified Allergy, Severe, Anaphylaxis, 03/24/18) Past Medical History See electronic medical record. Patient is O2 dependent. Active Scripts Dextromethorphan (Robitussin Lingering Cold) 15 Mg Cap, 30 MG PO Q8H Y for COUGH for 5 Days, #30 CAP 0 Refills Prov:SimonJosefina 03/25/18 Albuterol 18 GM Inh (Ventolin Hfa 18 GM Inh) 90 Mcg/Act Aer, 2 PUFF INH Q4H Y for SHORTNESS OF BREATH, #1 INHALER 0 Refills Prov:SimonJosefina DO 03/25/18 Prednisone (Prednisone) 20 Mg Tab, 40 MG PO DAILY for 5 Days, #10 TAB 0 Refills Take 40 mg (2 tablets) daily for 5 days Prov:Josefina Simon DO 03/25/18 Ondansetron Odt (Zofran Odt) 4 Mg Tab, 4 MG SL Q6HR Y for Nausea/Vomiting, #6 TAB 0 Refills Prov:Rola Palmer MD 02/19/18 Metronidazole Vaginal Gel (Metrogel Vaginal Gel) 0.75 % Gel, 1 APPL VAGINAL HS for Infection for 5 Days, #1 TUBE 0 Refills Prov:Rola Palmer MD 02/19/18 Ondansetron (Zofran) 4 Mg Tab, 4 MG PO Q6HR Y for NAUSEA OR VOMITING, #28 TAB 0 Refills Prov:Gary Abel MD 12/06/17 Albuterol 6.7 GM Inh (Proventil Hfa 6.7 GM Inh) 90 Mcg/Act Aer, 2 PUFF INH Q4- 6H Y for SHORTNESS OF BREATH, #1 INHALER 0 Refills Prov:Ervin Chua MD 06/13/17 Albuterol Neb (Albuterol Neb) 2.5 Mg/3 Ml Neb, 2.5 MG NEB Q4HR NEB Y for SHORTNESS OF BREATH, #60 NEBULE 0 Refills Prov:Yulia Torre MD 12/01/16 Reported Medications [oxygen @2LPM via NC ] No Conflict Check, DIRECTED Y for SOB/WHEEZING 3/22/[address] (Cymbalta DR) 60 Mg Capdr, 80 MG PO DAILY, #30 CAP 0 Refills 02/18/18 Omeprazole (Omeprazole) 40 Mg Cap, 40 MG PO DAILY, #30 CAP 0 Refills 02/18/18 Diltiazem (Diltiazem) 60 Mg Tab, 80 MG PO TID for Angina, #120 TAB 0 Refills 10/18/17 Olanzapine (Olanzapine) 5 Mg Tab, 10 MG PO HS, #30 TAB 0 Refills 10/18/17 Current Medications Medications (Trade) Dose Ordered Sig/Marcy Route Start Time Stop Time Status Last Admin (Zofran Odt) 4 mg Q8H PRN PO 04/16/18 23:30 (Tylenol) 650 mg Q4H PRN PO 04/16/18 23:30 (Albuterol Neb) 2.5 mg Q4HR NEB PRN NEB 04/16/18 23:30 04/17/18 06:22 (Romazicon Inj) 0.2 mg Q1M PRN IV PUSH 04/16/18 23:30 (Ativan) 1 mg Q4H PRN PO 04/16/18 23:30 (Ativan Inj) 1 mg Q4H PRN IV PUSH 04/16/18 23:30 (Ativan) 2 mg Q2H PRN PO 04/16/18 23:30 (Ativan Inj) 2 mg Q2H PRN IV PUSH 04/16/18 23:30 (Ativan Inj) 2 mg Q1H PRN IV PUSH 04/16/18 23:30 (Ativan Inj) 2 mg Q15M PRN IV PUSH 04/16/18 23:30 Patient's Strengths (min. 2) In a monitored setting. Verbally fluent. Physical Exam Physical exam completed by ED provider. On my examination today, the patient appears to be in no acute physical distress. No motor abnormalities noted. No signs of intoxication or withdrawal noted. Labs and vitals reviewed: Vital Signs Vital Signs Date Time Temp Pulse Resp B/P (MAP) Pulse Ox O2 Delivery O2 Flow Rate FiO2 04/17/18 06:03 89 16 132/62 (85) 98 Nasal Cannula 3.00 04/16/18 21:39 98.1 Lab Results Test 04/16/18 21:40 White Blood Count 11.9 TH/MM3 Red Blood Count 4.95 MIL/MM3 Hemoglobin 9.6 GM/DL Hematocrit 32.3 % Mean Corpuscular Volume 65.3 FL Mean Corpuscular Hemoglobin 19.4 PG Mean Corpuscular Hemoglobin Concent 29.7 % Red Cell Distribution Width 20.2 % Platelet Count 308 TH/MM3 Mean Platelet Volume 7.9 FL Neutrophils (%) (Auto) 61.8 % Lymphocytes (%) (Auto) 31.1 % Monocytes (%) (Auto) 5.5 % Eosinophils (%) (Auto) 0.6 % Basophils (%) (Auto) 1.0 % Neutrophils # (Auto) 7.4 TH/MM3 Lymphocytes # (Auto) 3.7 TH/MM3 Monocytes # (Auto) 0.7 TH/MM3 Eosinophils # (Auto) 0.1 TH/MM3 Basophils # (Auto) 0.1 TH/MM3 CBC Comment DIFF FINAL Differential Comment Urine Color LIGHT-YELLOW Urine Turbidity CLEAR Urine pH 5.5 Urine Specific [place] 1.005 Urine Protein NEG mg/dL Urine Glucose (UA) NEG mg/dL Urine Ketones NEG mg/dL Urine Occult Blood NEG Urine Nitrite NEG Urine Bilirubin NEG Urine Urobilinogen LESS THAN 2.0 MG/DL Urine Leukocyte Esterase NEG Urine RBC LESS THAN 1 /hpf Urine WBC 1 /hpf Urine Squamous Epithelial Cells 4 /hpf Microscopic Urinalysis Comment CULT NOT INDICATED Blood Urea Nitrogen 6 MG/DL Creatinine 0.78 MG/DL Random Glucose 84 MG/DL Total Protein 7.7 GM/DL Albumin 3.1 GM/DL Calcium Level 8.5 MG/DL Alkaline Phosphatase 115 U/L Aspartate Amino Transf (AST/SGOT) 36 U/L Alanine Aminotransferase (ALT/SGPT) 23 U/L Total Bilirubin 0.2 MG/DL Sodium Level 132 MEQ/L Potassium Level 4.0 MEQ/L Chloride Level 95 MEQ/L Carbon Dioxide Level 19.6 MEQ/L Anion Gap 17 MEQ/L Estimat Glomerular Filtration Rate 79 ML/MIN Thyroid Stimulating Hormone 3rd Gen 1.540 uIU/ML Salicylates Level 4.5 MG/DL Urine Opiates Screen NEG Acetaminophen Level LESS THAN 2.0 MCG/ML Urine Barbiturates Screen NEG Urine Amphetamines Screen NEG Urine Benzodiazepines Screen NEG Urine Cocaine Screen NEG Urine Cannabinoids Screen NEG Ethyl Alcohol Level 266 MG/DL Mental Status Examination Appearance: Disheveled Consciousness: Alert Orientation: x4 Motor Activity: Other (No motor abnormalities noted) Speech: Unremarkable Language: Adequate Fund of Knowledge: Adequate Attention and Concentration: Adequate Memory: Unremarkable (Grossly intact on clinical exam) Mood: Other (Depressed) Affect: Blunt Thought Process & Associations: Intact Thought Content: Appropriate Hallucination Type: None Delusion Type: None Suicidal Ideation: No (Unreliable to contract for safety) Suicidal Plan: No Suicidal Intention: No Homicidal Ideation: No Homicidal Plan: No Homicidal Intention: No Insight: Poor Judgment: Poor Assessment & Plan Problem List: (1) Adjustment disorder with depressed mood ICD Codes: F43.21 - Adjustment disorder with depressed mood (2) Alcohol dependence ICD Codes: F10.20 - Alcohol dependence, uncomplicated Assessment & Plan 48-year-old female with psychiatric history as detailed above who presents under Lazo act. On my examination today, the patient minimizes both her substance use issues as well as her suicidality. Collateral from the patient's sister indicates that she was trying to drink bleach last night and has made other toxic ingestions in the past. Family remains concerned about the patient understandably. I will plan to admit the patient to the inpatient psychiatric unit for safety, observation and stabilization. Admit inpatient. Patient is declining to consent for voluntary admission. Involuntary status. I have completed first opinion. Consult for second opinion. Patient retains capacity to consent for medications. I will titrate the patient's Cymbalta to 90 mg daily for mood. Continue Zyprexa as ordered. CIWA scale with Ativan for the management of any withdrawal. Thiamine and folate. Seizure precautions. Consult to the hospitalist for medical management. Vitals every shift. Counselor to see. Collateral information. Disposition planning. Estimated length of stay: 5-7 days. Discharge Planning Pending psychiatric stabilization Request HC Surrog/Guard Advoc?: No (Not at this time) Jamie Burnett MD April 17, 2018 08:24
[2018-04-17] MEDS ORDERED: MAGNESIUM HYDROXIDE SUSP 30 ML CUP PO PRN (08:30)
[2018-04-17] MEDS ORDERED: NICOTINE 21 MG/24 HR PATCH T-DERMAL PRN (08:30)
[2018-04-17] MEDS ORDERED: BENZTROPINE MESYLATE 1 MG TAB PO PRN (08:30)
[2018-04-17] MEDS ORDERED: BENZTROPINE MESYLATE 2 MG/2 ML VIAL IM PRN (08:30)
[2018-04-17] MEDS ORDERED: ALUMINUM/MAGNESIUM/SIMETH 30 ML CUP PO PRN (08:30)
[2018-04-17] MEDS ORDERED: hydrOXYzine HCL 50 MG TAB PO PRN (08:30)
[2018-04-17] MEDS ORDERED: diphenhydrAMINE HCL 50 MG CAP PO PRN (08:30)
[2018-04-17] MEDS ORDERED: DULoxetine HCl DR 60 MG CAP PO SCH (09:00)
[2018-04-17] MEDS ORDERED: NON-FORMULARY DRUG (Omeprazole 40 MG) PO SCH (09:00)
[2018-04-17] MEDS ORDERED: DULoxetine HCl DR 20 MG CAP PO SCH (09:00)
[2018-04-17] MEDS: NICOTINE 21 MG/24 HR PATCH T-DERMAL SCH (09:29)
[2018-04-17] MEDS: THIAMINE HCL 100 MG TAB PO SCH (09:29)
[2018-04-17] MEDS: FOLIC ACID 1 MG TAB PO SCH (09:31)
[2018-04-17] MEDS: PANTOPRAZOLE SOD 40 MG DELAYED RELEASE TAB PO SCH (09:31)
[2018-04-17] MEDS: DILTIAZEM HCL 60 MG TAB PO SCH ×3 (09:36→18:03)
[2018-04-17] MEDS: DULoxetine HCl DR 60 MG CAP PO SCH (11:05)
[2018-04-17] MEDS: DULoxetine HCl DR 30 MG CAP PO SCH (11:06)
[2018-04-17 12:00] VITALS: BP 155/68; PULSE 110; RESP 20; TEMP 98.2; O2SAT 96
[2018-04-17 17:18] VITALS: O2SAT 98
[2018-04-17 17:40] VITALS: BP 117/68; PULSE 99; RESP 20; TEMP 98.1; O2SAT 94
[2018-04-17] MEDS: LORazepam 1 MG TAB PO PRN ×2 (18:16→22:28)
[2018-04-17] MEDS: metroNIDAZOLE 0.75% VAG GEL 70 GM TUBE VAGINAL SCH (21:00)
[2018-04-17] MEDS: REMOVE OLD NICODERM (NICOTINE) PATCH T-DERMAL SCH (21:00)
[2018-04-17] MEDS: OLANZapine 5 MG TAB PO SCH (21:45)
[2018-04-18 06:00] VITALS: BP 125/65; PULSE 90; RESP 18; TEMP 97.7; O2SAT 93
[2018-04-18] MEDS: RESP: ALBUTEROL 2.5 MG/3 ML NEB (PRN) NEB ×3 (06:23→12:28)
[2018-04-18] MEDS: THIAMINE HCL 100 MG TAB PO SCH (08:24)
[2018-04-18] MEDS: FOLIC ACID 1 MG TAB PO SCH (08:24)
[2018-04-18] MEDS: PANTOPRAZOLE SOD 40 MG DELAYED RELEASE TAB PO SCH (08:24)
[2018-04-18] MEDS: DILTIAZEM HCL 60 MG TAB PO SCH (08:24)
[2018-04-18] MEDS: DULoxetine HCl DR 60 MG CAP PO SCH (08:25)
[2018-04-18] MEDS: DULoxetine HCl DR 30 MG CAP PO SCH (08:25)
[2018-04-18] MEDS: NICOTINE 21 MG/24 HR PATCH T-DERMAL SCH (08:27)
--- NOTE | 2018-04-18 08:30 | PD.CONS ---
[facility] Requested By Reason for Consult Medical management Primary Care Physician Supa Marshall III, MD Diagnoses: History of Present Illness 48-year-old female with past medical history significant for hypertension, COPD on 3 L nasal cannula at bedtime, CVA with right-sided residual weakness, atrial fibrillation, hypertension, anxiety, depression, tobacco and alcohol abuse who presented to the emergency department on 04/16 under Lazo act for psychiatric evaluation. Review of ED documentation, patient apparently made statements of being "done with everything due to multiple deaths in her family". Patient was also recently taken off of lorazepam 4 months ago, now with increased anxiety. Patient's daughter is who called 911 due to her statements of suicidal ideation. Nurse reports no acute events overnight or this morning. Patient is seen and examined resting in bed comfortably in no acute distress. She is awake , alert, and oriented to self, time, and place. She reports that she takes verapamil at home for her heart and was recently diagnosed with atrial fibrillation by her PCP. She reports that she was not given any kind of blood thinner following her diagnosis. She reports that she smokes 1 pack of cigarettes about every 3 days, she is significantly cut down. She also reports drinking alcohol but states that she only drinks on the weekends or every other week. Patient's blood ethanol level on admission was 266, review of psychiatric note also reveals that patient did report drinking 4 pack of beer and had a pint of liquor in addition to beer prior to her arrival to the ER. She denies any fevers, chills, nausea, vomiting, diarrhea, abdominal pain, shortness of breath, dizziness, lightheadedness, chest palpitations, or chest pain. She reports that she has a chronic cough, nonproductive. She voices no acute complaints, would like to know when she can leave. Review of Systems Except as stated in HPI: all other systems reviewed are Neg Past Family Social History Allergies: Coded Allergies: levofloxacin (Unverified Allergy, Severe, Anaphylaxis, 03/24/18) Past Medical History COPD on chronic O2 at bedtime (3 L) Atrial fibrillation, recently diagnosed not on anticoagulation Hypertension CVA when she was 23 years old with residual right-sided weakness Depression Anxiety Past Surgical History Hernia repair Reported Medications Reported Meds & Active Scripts Active Robitussin Lingering Cold (Dextromethorphan HBr) 15 Mg Cap 30 Mg PO Q8H PRN 5 Days Ventolin Hfa 18 GM Inh (Albuterol Sulfate) 90 Mcg/Act Aer 2 Puff INH Q4H PRN Prednisone 20 Mg Tab 40 Mg PO DAILY 5 Days Take 40 mg (2 tablets) daily for 5 days Zofran Odt (Ondansetron Odt) 4 Mg Tab 4 Mg SL Q6HR PRN Metrogel Vaginal Gel (Metronidazole Vaginal Gel) 0.75 % Gel 1 Appl VAGINAL HS 5 Days Zofran (Ondansetron HCl) 4 Mg Tab 4 Mg PO Q6HR PRN Proventil Hfa 6.7 GM Inh (Albuterol Sulfate) 90 Mcg/Act Aer 2 Puff INH Q4-6H PRN Albuterol Neb (Albuterol Sulfate) 2.5 Mg/3 Ml Neb 2.5 Mg NEB Q4HR NEB PRN Reported [oxygen @2LPM via NC ] DIRECTED PRN Cymbalta DR (Duloxetine HCl) 60 Mg Capdr 80 Mg PO DAILY Omeprazole 40 Mg Cap 40 Mg PO DAILY Diltiazem (Diltiazem HCl) 60 Mg Tab 80 Mg PO TID Olanzapine 5 Mg Tab 10 Mg PO HS Active Ordered Medications Current Medications Medications (Trade) Dose Ordered Sig/Marcy Route Start Time Stop Time Status Last Admin (Zofran Odt) 4 mg Q8H PRN PO 04/16/18 23:30 (Tylenol) 650 mg Q4H PRN PO 04/16/18 23:30 (Albuterol Neb) 2.5 mg Q4HR NEB PRN NEB 04/16/18 23:30 04/18/18 08:40 (Romazicon Inj) 0.2 mg Q1M PRN IV PUSH 04/16/18 23:30 (Ativan) 1 mg Q4H PRN PO 04/16/18 23:30 04/17/18 22:28 (Ativan Inj) 1 mg Q4H PRN IV PUSH 04/16/18 23:30 (Ativan) 2 mg Q2H PRN PO 04/16/18 23:30 (Ativan Inj) 2 mg Q2H PRN IV PUSH 04/16/18 23:30 (Ativan Inj) 2 mg Q1H PRN IV PUSH 04/16/18 23:30 (Ativan Inj) 2 mg Q15M PRN IV PUSH 04/16/18 23:30 (Benadryl) 25 mg HS PRN PO 04/17/18 08:30 (Tylenol) 650 mg Q4H PRN PO 04/17/18 08:30 (Milk Of Magnesia Liq) 30 ml DAILY PRN PO 04/17/18 08:30 (Mag-Al Plus Susp Liq) 30 ml Q6H PRN PO 04/17/18 08:30 (Atarax) 25 mg Q6H PRN PO 04/17/18 08:30 (Cogentin) 1 mg Q12H PRN PO 04/17/18 08:30 (Cogentin Inj) 1 mg Q12H PRN IM 04/17/18 08:30 (Vitamin B1) 100 mg DAILY PO 04/17/18 09:00 04/18/18 08:24 (Folate) 1 mg DAILY PO 04/17/18 09:00 04/18/18 08:24 (Cardizem) 60 mg TID PO 04/17/18 09:30 04/18/18 08:24 (Flagyl 0.75% Vag Gel) 1 appl HS VAGINAL 04/17/18 21:00 (ZyPREXA) 10 mg HS PO 04/17/18 21:00 04/17/18 21:45 (Cymbalta Dr) 60 mg DAILY PO 04/17/18 09:00 04/18/18 08:25 (Cymbalta Dr) 30 mg DAILY PO 04/17/18 09:00 04/18/18 08:25 (Habitrol 21 Mg Patch.24 Hr) 1 patch DAILY T-DERMAL 04/17/18 09:00 04/18/18 08:27 Miscellaneous Information 1 HS T-DERMAL 04/17/18 21:00 (Protonix) 40 mg DAILY PO 04/17/18 09:00 04/18/18 08:24 (Duoneb Neb) 1 ampule Q6HR NEB NEB 04/18/18 10:00 Family History Family history of stroke Father: Liver problems Sister: Renal disease Social History Tobacco: Smokes 1 pack of cigarettes every 3 days Alcohol use: Reports drinking on the weekends or every other week Illicit drug use: Denies Physical Exam Vital Signs Vital Signs Date Time Temp Pulse Resp B/P (MAP) Pulse Ox O2 Delivery O2 Flow Rate FiO2 04/17/18 17:40 98.1 99 20 117/68 (84) 94 04/17/18 17:18 98 04/17/18 12:00 98.2 110 20 155/68 (97) 96 Physical Exam GENERAL: Well-developed, well-nourished female in no acute distress. SKIN: No rashes, ecchymoses or lesions. Cool and dry. HEAD: Atraumatic. Normocephalic. EYES: Pupils equal round and reactive. Extraocular motions intact. No scleral icterus. No injection or drainage. ENT: Nose without bleeding, purulent drainage. Throat without erythema. Airway patent. NECK: Trachea midline. No JVD. Supple, nontender. CARDIOVASCULAR: Regular rate and rhythm without murmurs, gallops, or rubs. RESPIRATORY: Posterior upper lobe mild wheezing. No rales, or rhonchi. No labored breathing, no accessory muscle use. GASTROINTESTINAL: Abdomen soft, non-tender, nondistended. No hepato- splenomegaly. No guarding. MUSCULOSKELETAL: Extremities without clubbing, cyanosis, or edema. No joint tenderness, effusion, or edema noted. No calf tenderness. NEUROLOGICAL: Awake and alert, oriented 3. Cranial nerves II through XII grossly intact. Sensory grossly within normal limits. Left upper and lower extremity strength 5/5, right upper and lower extremity strength 4/5. normal speech, no facial droop. Result Diagram: 04/16/18213904/[id number]/182139 Assessment and Plan Assessment and Plan 48-year-old female with past medical history significant for hypertension, COPD on 3 L nasal cannula at bedtime, CVA with right-sided residual weakness, atrial fibrillation, hypertension, anxiety, depression, tobacco and alcohol abuse who presented to the emergency department on 04/16 under [place] act for psychiatric evaluation. [facility] consulted to assist with ongoing medical management. Anxiety/depression -Treatment per primary team, greatly appreciated [place] fib - EKG 03/24 sinus tachycardia, currently in regular rhythm, check EKG. - Currently on Diltiazem and looking back she was also on this in February of 2018, this may be for BP control - Reports taking a blood thinner, Verapamil. Call placed to patient's pharmacy by nurse, no recent refill of Diltiazem, but patient is on Verapamil. Will continue her Verapamil and D/C Diltiazem. -[id number] (HTN 1, CVA 2, female 1)=4% risk. Discussed with patient that anticoagulation is recommended, will clarify this with medical records from PCP if she does indeed have a.fib or if she was not already on anticoagulation. Hypertension, controlled History of CVA -Continue Cardizem 60 mg 3 times a day -Continue monitoring heart rate and blood pressure - LDL 80, HDL 128.4, hemoglobin A1c pending COPD, not exacerbated-secondary to tobacco abuse -Discussed smoking cessation. Nicotine patch. -O2 nasal cannula at bedtime as needed. -DuoNeb treatments every 4 hours Hyponatremia, mild -Likely secondary to EtOH abuse, asymptomatic. -132--> 134 improved, continue to monitor periodically. Microcytic anemia Mild leukocytosis, resolved - Iron studies reviewed, iron 40, TIBC 571, percent saturation 2.5. -Check Hemoccult - Start PO Fe BID -WBC count 11.9--> 4.9 with no neutrophil count. Alcohol dependence -CIWA, seizure precaution -Continue thiamine and folate -Mildly elevated AST at 38, likely secondary to EtOH abuse DVT prophylaxis-encourage ambulation Discussed with patient and nurse. Thank you for this consultation, will continue to follow along. Katie Alcaraz April 18, 2018 08:30
[2018-04-18] MEDS: RESP: ALBUTEROL 2.5 MG/IPRATROPIUM 0.5 MG NEB (SCH) NEB ×3 (10:00→19:31)
--- NOTE | 2018-04-18 10:11 | HHI.PYPN ---
Subjective Chief Complaint: Suicidal ideation Remarks Chart reviewed and discussed patient with UC[facility] Schroeder. Patient is in her hospital bed receiving a breathing treatment. She endorses that she slept well and has a good appetite. When asked about her alcohol habits she states, " I only drink a few on the weekends." When I shared that her family feels she has a problem with alcohol, she was in denial. I discussed the outpatient detox services at the [facility] at [address] [place] [address] in [place] and she was open to looking into this program. Patient does not think she care and is refusing to sign any paperwork. Mental Status Examination Appearance: Appropriate Consciousness: Alert Orientation: x4 Motor Activity: Other (No motor abnormalities noted) Speech: Unremarkable Language: Adequate Fund of Knowledge: Adequate Attention and Concentration: Adequate Memory: Unremarkable (Grossly intact on clinical exam) Mood: Sad Affect: Flat, Blunt Thought Process & Associations: Intact Thought Content: Appropriate Hallucination Type: None Delusion Type: None Suicidal Ideation: No Suicidal Plan: No Suicidal Intention: No Homicidal Ideation: No Homicidal Plan: No Homicidal Intention: No Insight: Poor Judgment: Poor Results Labs Test 04/18/18 07:10 Vitals/IOs Vital Signs Date Time Temp Pulse Resp B/P (MAP) Pulse Ox O2 Delivery O2 Flow Rate FiO2 04/18/18 06:00 97.7 90 18 125/65 (85) 93 04/17/18 06:03 Nasal Cannula 3.00 Intake and Output 04/18/18 04/18/18 04/19/18 08:00 16:00 00:00 Intake Total 600 ml Balance 600 ml Assessment & Plan Problem List: (1) Adjustment disorder with depressed mood ICD Codes: F43.21 - Adjustment disorder with depressed mood (2) Alcohol dependence ICD Codes: F10.20 - Alcohol dependence, uncomplicated Assessment & Plan Estimated LOS: days Justification for Cont. Inpt. Moving this patient to a lower level of care may result in her decompensation. Discharge planning in progress. Request HC Surrog/Guard Advoc?: No (Not at this time) Vesna Odonnell April 18, 2018 10:11
[2018-04-18 10:24] LABS: AUTOMATED NEUTROPHIL # 3.2 TH/MM3 (1.8-7.7); BASOPHIL % 0.9 % (0.0-2.0); EOSINOPHIL % 0.5 % (0.0-4.0); HEMATOCRIT 33.3 % (35.0-46.0); HEMOGLOBIN 9.4 GM/DL (11.6-15.3); LYMPH % 24.1 % (9.0-44.0); LYMPHOCYTE # 1.2 TH/MM3 (1.0-4.8); MEAN CELL VOLUME 66.9 FL (80.0-100.0); MEAN CORPUSCULAR HEMOGLOBIN 18.8 PG (27.0-34.0); MEAN CORPUSCULAR HGB CONC 28.1 % (32.0-36.0); MEAN PLATELET VOLUME 8.6 FL (7.0-11.0); MONO % 7.9 % (0.0-8.0); MONOCYTE # 0.4 TH/MM3 (0-0.9); NEUT % 66.6 % (16.0-70.0); PLATELET COUNT 194 TH/MM3 (150-450); RED BLOOD COUNT 4.98 MIL/MM3 (4.00-5.30); RED CELL DISTRIBUTION WIDTH 21.3 % (11.6-17.2); WHITE BLOOD COUNT 4.9 TH/MM3 (4.0-11.0)
[2018-04-18 10:33] LABS: ALBUMIN 2.9 GM/DL (3.4-5.0); AST (GOT) 38 U/L (15-37); BLOOD UREA NITROGEN 4 MG/DL (7-18); CALCIUM 8.8 MG/DL (8.5-10.1); CHLORIDE 101 MEQ/L (98-107); CREATININE 0.82 MG/DL (0.50-1.00); GLOMERULAR FILTRATION RATE 75 ML/MIN (>89); GLUCOSE,RANDOM 104 MG/DL (74-106); SODIUM (NA) 134 MEQ/L (136-145)
[2018-04-18] MEDS ORDERED: VERA80TA PO (10:35)
[2018-04-18 10:36] LABS: ALKALINE PHOSPHATASE 110 U/L (45-117); ALT (GPT) 25 U/L (10-53); CHOLESTEROL 223 MG/DL (120-200); CHOLESTEROL/ HDL RATIO 1.73 RATIO; HDL CHOLESTEROL 128.4 MG/DL (40.0-60.0); LDL CHOLESTEROL 80 MG/DL (0-99); TOTAL BILIRUBIN ADULT 0.4 MG/DL (0.2-1.0); TOTAL PROTEIN 7.2 GM/DL (6.4-8.2); TRIGLYCERIDES 75 MG/DL (42-150)
[2018-04-18 11:43] LABS: HEMOGLOBIN A1C 5.6 % (4.3-6.0)
[2018-04-18] MEDS: VERAPAMIL HCL 80 MG TAB PO SCH ×2 (13:10→18:02)
[2018-04-18 13:23] LABS: % SATURATION IRON PROFILE 2.5 % (20-50); IRON (FE) 14 MCG/DL (50-170); TOTAL IRON BINDING CAPACITY 571 MCG/DL (250-450)
--- NOTE | 2018-04-18 15:11 | EKG ---
Date Performed: 04/18/2018 Time Performed: 14:02:07 PTAGE: 48 years EKG: Sinus rhythm NORMAL ECG PREVIOUS TRACING : 03/24/2018 23.22 No significant change from previous tracing noted. DOCTOR: Chirag Dubois Interpretating Date/Time 04/18/2018 15:09:29
[2018-04-18 16:05] VITALS: O2SAT 93
[2018-04-18 17:41] VITALS: BP 121/59; PULSE 93; RESP 18; TEMP 98.5; O2SAT 93
[2018-04-18] MEDS: FERROUS SULFATE 325 MG (65 MG ELEMENTAL IRON) TAB PO SCH (18:02)
--- NOTE | 2018-04-18 19:02 | PD.PSY.CON ---
Provisional Diagnosis Admission Date April 17, 2018 at 08:22 [place] I. 1. Adjustment disorder with depressed mood Rule out major depressive episode Rule out some degree of alcohol-induced mood disorder 2. Alcohol dependence [place] II. Deferred History of Present Illness Service Psychiatry Consult Requested By Psychiatry Reason for Consult 2nd opinion Primary Care Physician Supa Marshall III, MD HPI Pt is a 48YOWF with a hx of alcohol dependence, anxiety and depression who was admitted under a BA to [facility] due suicidal threats. Pt was seen and discussed with staff. Chart reviewed. Pt reports that she drank a pint of liquor and a six packs. She states that she told her family that she wanted to and to drink bleach to kill self. She states that she was just drunk but does admit to increased depression and anxiety since stopping zoloft abruptly due to concerns of weight gain. She minimizes alcohol use. Staff report that family expressed concern about pt's poor impulse control and out of control alcohol use. Pt denies psychosis or mckenzie. Staff report that pt has been withdrawn on unit. Collateral info from family documented in EHR states that pt actually tried to drink bleach and has tried in recent past to drink household chemicals Past psychiatric history: The patient reports a history of anxiety and depression. She is not under the care of a psychiatrist. Was prescribed zoloft which was helpful by PCP but stopped taking. She reports that she was psychiatrically admitted several years ago. She denies a history of suicide attempts. Family history: The patient denies a family history of mental illness or suicide. Chemical dependency history: The patient reports that she typically drinks a 4 pack of beer. She drank a pint of liquor in addition last night. She does not view her substance use as problematic. She believes that she can stop drinking whenever she wants but simply chooses not to. She denies any other substance use. Social history: The patient has 11 grade education. She is disabled. She lives with her daughter. She has 2 other children. She was 4 years ago. No reported access to guns or firearms. Past Family Social History Coded Allergies: levofloxacin (Unverified Allergy, Severe, Anaphylaxis, 03/24/18) Active Scripts Dextromethorphan (Robitussin Lingering Cold) 15 Mg Cap, 30 MG PO Q8H Y for COUGH for 5 Days, #30 CAP 0 Refills Prov:Simon,Josefina 03/25/18 Albuterol 18 GM Inh (Ventolin Hfa 18 GM Inh) 90 Mcg/Act Aer, 2 PUFF INH Q4H Y for SHORTNESS OF BREATH, #1 INHALER 0 Refills Prov:Josefina Simon 03/25/18 Prednisone (Prednisone) 20 Mg Tab, 40 MG PO DAILY for 5 Days, #10 TAB 0 Refills Take 40 mg (2 tablets) daily for 5 days Prov:Josefina Simon 03/25/18 Ondansetron Odt (Zofran Odt) 4 Mg Tab, 4 MG SL Q6HR Y for Nausea/Vomiting, #6 TAB 0 Refills Prov:Rola Palmer MD 02/19/18 Metronidazole Vaginal Gel (Metrogel Vaginal Gel) 0.75 % Gel, 1 APPL VAGINAL HS for Infection for 5 Days, #1 TUBE 0 Refills Prov:Rola Palmer MD 02/19/18 Ondansetron (Zofran) 4 Mg Tab, 4 MG PO Q6HR Y for NAUSEA OR VOMITING, #28 TAB 0 Refills Prov:Gary Abel MD 12/06/17 Albuterol 6.7 GM Inh (Proventil Hfa 6.7 GM Inh) 90 Mcg/Act Aer, 2 PUFF INH Q4- 6H Y for SHORTNESS OF BREATH, #1 INHALER 0 Refills Prov:Ervin Chua MD 06/13/17 Albuterol Neb (Albuterol Neb) 2.5 Mg/3 Ml Neb, 2.5 MG NEB Q4HR NEB Y for SHORTNESS OF BREATH, #60 NEBULE 0 Refills Prov:Yulia Torre MD 12/01/16 Reported Medications Verapamil (Verapamil) 80 Mg Tab, 80 MG PO TID, #60 TAB 0 Refills 04/18/18 [oxygen @2LPM via NC ] No Conflict Check, DIRECTED Y for SOB/WHEEZING 02/18/18 Duloxetine (Cymbalta ) 60 Mg Capdr, 80 MG PO DAILY, #30 CAP 0 Refills 02/18/18 Omeprazole (Omeprazole) 40 Mg Cap, 40 MG PO DAILY, #30 CAP 0 Refills 02/18/18 Olanzapine (Olanzapine) 5 Mg Tab, 10 MG PO HS, #30 TAB 0 Refills 10/18/17 Discontinued Reported Medications Diltiazem (Diltiazem) 60 Mg Tab, 80 MG PO TID for Angina, #120 TAB 0 Refills 10/18/17 Current Medications Medications (Trade) Dose Ordered Sig/Marcy Route Start Time Stop Time Status Last Admin (Zofran Odt) 4 mg Q8H PRN PO 04/16/18 23:30 (Tylenol) 650 mg Q4H PRN PO 04/16/18 23:30 (Albuterol Neb) 2.5 mg Q4HR NEB PRN NEB 04/16/18 23:30 04/18/18 12:28 (Romazicon Inj) 0.2 mg Q1M PRN IV PUSH 04/16/18 23:30 (Ativan) 1 mg Q4H PRN PO 04/16/18 23:30 04/17/18 22:28 (Ativan Inj) 1 mg Q4H PRN IV PUSH 04/16/18 23:30 (Ativan) 2 mg Q2H PRN PO 04/16/18 23:30 (Ativan Inj) 2 mg Q2H PRN IV PUSH 04/16/18 23:30 (Ativan Inj) 2 mg Q1H PRN IV PUSH 04/16/18 23:30 (Ativan Inj) 2 mg Q15M PRN IV PUSH 04/16/18 23:30 (Benadryl) 25 mg HS PRN PO 04/17/18 08:30 (Tylenol) 650 mg Q4H PRN PO 04/17/18 08:30 (Milk Of Magnesia Liq) 30 ml DAILY PRN PO 04/17/18 08:30 (Mag-Al Plus Susp Liq) 30 ml Q6H PRN PO 04/17/18 08:30 (Atarax) 25 mg Q6H PRN PO 04/17/18 08:30 04/18/18 18:11 (Cogentin) 1 mg Q12H PRN PO 04/17/18 08:30 (Cogentin Inj) 1 mg Q12H PRN IM 04/17/18 08:30 (Vitamin B1) 100 mg DAILY PO 04/17/18 09:00 04/18/18 08:24 (Folate) 1 mg DAILY PO 04/17/18 09:00 04/18/18 08:24 (Flagyl 0.75% Vag Gel) 1 appl HS VAGINAL 04/17/18 21:00 (ZyPREXA) 10 mg HS PO 04/17/18 21:00 04/17/18 21:45 (Cymbalta Dr) 60 mg DAILY PO 04/17/18 09:00 04/18/18 08:25 (Cymbalta Dr) 30 mg DAILY PO 04/17/18 09:00 04/18/18 08:25 (Habitrol 21 Mg Patch.24 Hr) 1 patch DAILY T-DERMAL 04/17/18 09:00 04/18/18 08:27 Miscellaneous Information 1 HS T-DERMAL 04/17/18 21:00 (Protonix) 40 mg DAILY PO 04/17/18 09:00 04/18/18 08:24 (Duoneb Neb) 1 ampule Q6HR NEB NEB 04/18/18 10:00 04/18/18 16:03 (Isoptin) 80 mg TID PO 04/18/18 13:00 04/18/18 18:02 (Ferrous Sulfate) 325 mg BID@12,17 PO 04/18/18 17:00 04/18/18 18:02 Patient's Strengths (min. 2) In a monitored setting. Verbally fluent. Physical Exam Vital Signs Vital Signs Date Time Temp Pulse Resp B/P (MAP) Pulse Ox O2 Delivery O2 Flow Rate FiO2 04/18/18 17:41 98.5 93 18 121/59 (79) 93 04/17/18 06:03 Nasal Cannula 3.00 I/O 04/18/18 04/18/18 04/19/18 08:00 16:00 00:00 Intake Total 600 ml 1200 ml Balance 600 ml 1200 ml Lab Results Test 04/18/18 07:10 White Blood Count 4.9 TH/MM3 Red Blood Count 4.98 MIL/MM3 Hemoglobin 9.4 GM/DL Hematocrit 33.3 % Mean Corpuscular Volume 66.9 FL Mean Corpuscular Hemoglobin 18.8 PG Mean Corpuscular Hemoglobin Concent 28.1 % Red Cell Distribution Width 21.3 % Platelet Count 194 TH/MM3 Mean Platelet Volume 8.6 FL Neutrophils (%) (Auto) 66.6 % Lymphocytes (%) (Auto) 24.1 % Monocytes (%) (Auto) 7.9 % Eosinophils (%) (Auto) 0.5 % Basophils (%) (Auto) 0.9 % Neutrophils # (Auto) 3.2 TH/MM3 Lymphocytes # (Auto) 1.2 TH/MM3 Monocytes # (Auto) 0.4 TH/MM3 Eosinophils # (Auto) 0.0 TH/MM3 Basophils # (Auto) 0.0 TH/MM3 CBC Comment DIFF FINAL Differential Comment Hematology Comments Blood Urea Nitrogen 4 MG/DL Creatinine 0.82 MG/DL Random Glucose 104 MG/DL Total Protein 7.2 GM/DL Albumin 2.9 GM/DL Calcium Level 8.8 MG/DL Alkaline Phosphatase 110 U/L Aspartate Amino Transf (AST/SGOT) 38 U/L Alanine Aminotransferase (ALT/SGPT) 25 U/L Total Bilirubin 0.4 MG/DL Sodium Level 134 MEQ/L Potassium Level 3.6 MEQ/L Chloride Level 101 MEQ/L Carbon Dioxide Level 25.0 MEQ/L Anion Gap 8 MEQ/L Estimat Glomerular Filtration Rate 75 ML/MIN Hemoglobin A1c 5.6 % Iron Level 14 MCG/DL Total Iron Binding Capacity 571 MCG/DL Percent Iron Saturation 2.5 % Triglycerides Level 75 MG/DL Cholesterol Level 223 MG/DL LDL Cholesterol 80 MG/DL HDL Cholesterol 128.4 MG/DL Cholesterol/HDL Ratio 1.73 RATIO Mental Status Examination Appearance: Appropriate Consciousness: Alert Orientation: x4 Motor Activity: Other (No motor abnormalities noted) Speech: Unremarkable Language: Adequate Fund of Knowledge: Adequate Attention and Concentration: Adequate Memory: Unremarkable Mood: Sad Affect: Flat, Blunt Thought Process & Associations: Intact Thought Content: Appropriate Hallucination Type: None Delusion Type: None Suicidal Ideation: No Suicidal Plan: No Suicidal Intention: No Homicidal Ideation: No Homicidal Plan: No Homicidal Intention: No Insight: Poor Judgment: Poor Assessment & Plan Problem List: (1) Adjustment disorder with depressed mood ICD Codes: F43.21 - Adjustment disorder with depressed mood (2) Alcohol dependence ICD Codes: F10.20 - Alcohol dependence, uncomplicated Assessment & Plan I agree that pt meets criteria for involuntary hospitalization due to risks of self harm. 2nd opinion paperwork completed. Estimated LOS: days Request HC Surrog/Guard Advoc?: No (Not at this time) Tara Herman MD April 18, 2018 19:02
[2018-04-18] MEDS: OLANZapine 5 MG TAB PO SCH (21:00)
[2018-04-18] MEDS: REMOVE OLD NICODERM (NICOTINE) PATCH T-DERMAL SCH (21:00)
[2018-04-18] MEDS: metroNIDAZOLE 0.75% VAG GEL 70 GM TUBE VAGINAL SCH (21:00)
[2018-04-19] MEDS: RESP: ALBUTEROL 2.5 MG/3 ML NEB (PRN) NEB (01:41)
[2018-04-19 01:44] VITALS: O2SAT 96
[2018-04-19] MEDS: RESP: ALBUTEROL 2.5 MG/IPRATROPIUM 0.5 MG NEB (SCH) NEB ×4 (04:00→21:55)
[2018-04-19 06:00] VITALS: BP 134/72; PULSE 91; RESP 18; TEMP 97.9; O2SAT 95
[2018-04-19 07:36] VITALS: O2SAT 96
--- NOTE | 2018-04-19 08:07 | HHI.PR ---
Subjective Remarks Follow-up visit for HTN, anemia, COPD, hyponatremia, ? A. fib. Spoke with nurse who does not report any acute events overnight or this morning. Patient seen and examined resting in bed comfortably in no acute distress, reports she had somewhat of a hard time sleeping last night due to cough. She reports that she has had a chronic nonproductive cough for years. She denies any fevers, chills, shortness of breath, dizziness, lightheadedness, heart palpitations, headache, nausea, vomiting, constipation, diarrhea, or chest pain. She reports that her doctor told her that her heart rate was fast and started on verapamil, is unsure if this was actually A. fib. Objective Vitals Vital Signs Date Time Temp Pulse Resp B/P (MAP) Pulse Ox O2 Delivery O2 Flow Rate FiO2 04/19/18 07:36 96 Nasal Cannula 2.00 04/19/18 06:00 97.9 91 18 134/72 (92) 95 04/19/18 01:44 96 Nasal Cannula 2.00 04/18/18 17:41 98.5 93 18 121/59 (79) 93 04/18/18 16:05 93 I/O 04/18/18 04/18/18 04/18/18 04/19/18 04/19/18 04/19/18 07:00 15:00 23:00 07:00 15:00 23:00 Intake Total 0 ml 600 ml 1680 ml Balance 0 ml 600 ml 1680 ml Intake Oral 0 ml 600 ml 1200 ml Oral Supplement 480 ml # Voids 1 2 Result Diagram: 04/18/18 0710 04/18/18 0710 Objective Remarks GENERAL: Well-developed, well-nourished female in no acute distress. SKIN: Cool and dry. HEAD: Atraumatic. Normocephalic. EYES: Pupils equal round. No scleral icterus. No injection or drainage. ENT: Nose without bleeding. Throat without erythema. Airway patent. NECK: Trachea midline. CARDIOVASCULAR: Regular rate and rhythm without murmurs, gallops, or rubs. RESPIRATORY: Anterior upper lobe wheezing. No rales, or rhonchi. No labored breathing, no accessory muscle use, nonproductive cough noted. GASTROINTESTINAL: Abdomen soft, non-tender, nondistended. MUSCULOSKELETAL: Extremities without clubbing, cyanosis, or edema. No joint tenderness, effusion, or edema noted. NEUROLOGICAL: Awake and alert, oriented 3. Cranial nerves II through XII grossly intact. Sensory grossly within normal limits. Left upper and lower extremity strength 5/5, right upper and lower extremity strength 4/5. normal speech, no facial droop. A/P Assessment and Plan 48-year-old female with past medical history significant for hypertension, COPD on 3 L nasal cannula at bedtime, CVA with right-sided residual weakness, atrial fibrillation, hypertension, anxiety, depression, tobacco and alcohol abuse who presented to the emergency department on 04/16 under [place] act for psychiatric evaluation. [facility] consulted to assist with ongoing medical management. Anxiety/depression -Treatment per primary team, greatly appreciated ? A. fib - EKG 03/24 sinus tachycardia, currently in regular rhythm, EKG completed reviewed, normal sinus rhythm. - Reports taking a blood thinner, Verapamil. Call placed to patient's pharmacy by nurse, no recent refill of Diltiazem, but patient is on Verapamil. Diltiazem was discontinued, restarted on her verapamil. -[id number] (HTN 1, CVA 2, female 1)=4% risk. Discussed with patient that anticoagulation is recommended, will clarify this with medical records from PCP if she does indeed have a.fib, sounds like she might of had tachycardia. -Discussed with James IVEY, request medical records from PCP. Hypertension, controlled History of CVA -Continue Cardizem 60 mg 3 times a day -Continue monitoring heart rate and blood pressure - LDL 80, HDL 128.4, hemoglobin A1c 5.6 COPD, mildly exacerbated-secondary to tobacco abuse -Discussed smoking cessation. Nicotine patch on board. -O2 nasal cannula at bedtime as needed. -Increase cough especially at bedtime, no shortness of breath reported, cough is nonproductive. -Will start patient on Symbicort, she reports being on this at home, duo nebs every 4 hours with as needed's in between as needed, short course of oral prednisone 40 mg 5 days, Tessalon Perles as needed. -Incentive spirometry, in no acute respiratory distress at the moment. Hyponatremia, mild -Likely secondary to EtOH abuse, asymptomatic. -132--> 134 improved, continue to monitor periodically. Microcytic anemia- NIC Mild leukocytosis, resolved - Iron studies reviewed, iron 40, TIBC 571, percent saturation 2.5. -Check Hemoccult - Start PO Fe BID, patient reports heavy menses. -WBC count 11.9--> 4.9 with no neutrophil count. Alcohol dependence -CIWA, seizure precaution -Continue thiamine and folate -Mildly elevated AST at 38, likely secondary to EtOH abuse DVT prophylaxis-encourage ambulation Discussed with patient and nurse. Katie Alcaraz April 19, 2018 08:07
--- NOTE | 2018-04-19 08:54 | HHI.PYPN ---
Subjective Chief Complaint: Suicidal ideation Remarks Patient seen and examined with nurse. Chart reviewed. CIWA scores are minimal. Case discussed with nursing staff. On my exam, patient describes mood as tired. She slept poorly overnight. She denies any hopelessness or worthlessness. Denies any audiovisual hallucinations. Denies any suicidal or homicidal ideation. Denies any side effects from medications. No physical complaints. Review of Systems Except as stated in HPI: all other systems reviewed are Neg Mental Status Examination Appearance: Appropriate Consciousness: Alert Orientation: x4 Motor Activity: Other (Mild resting tremor. No mydriasis, no diaphoresis, no tongue fasciculations) Speech: Unremarkable Language: Adequate Fund of Knowledge: Adequate Attention and Concentration: Adequate Memory: Unremarkable Mood: Appropriate Affect: Blunt Thought Process & Associations: Intact Thought Content: Appropriate Hallucination Type: None Delusion Type: None Suicidal Ideation: No Suicidal Plan: No Suicidal Intention: No Homicidal Ideation: No Homicidal Plan: No Homicidal Intention: No Insight: Poor Judgment: Poor Results Labs Labs reviewed Vitals/IOs Vital Signs Date Time Temp Pulse Resp B/P (MAP) Pulse Ox O2 Delivery O2 Flow Rate FiO2 04/19/18 07:36 96 Nasal Cannula 2.00 04/19/18 06:00 97.9 91 18 134/72 (92) Intake and Output 04/19/18 04/19/18 04/20/18 08:00 16:00 00:00 Intake Total 240 ml Balance 240 ml Assessment & Plan Problem List: (1) Adjustment disorder with depressed mood ICD Codes: F43.21 - Adjustment disorder with depressed mood (2) Alcohol dependence ICD Codes: F10.20 - Alcohol dependence, uncomplicated Assessment & Plan Titrate Zyprexa to 15 mg at bedtime for sleep and mood. Continue Cymbalta as ordered. Hospitalist input noted and appreciated. Continue to monitor on the inpatient unit. Continue other medications and care as ordered. Justification for Cont. Inpt. Med changes. Risk for decompensation in less restrictive environment. Discharge Planning Pending psychiatric stabilization Request HC Surrog/Guard Advoc?: No (Not at this time) Jamie Burnett MD April 19, 2018 08:54
[2018-04-19] MEDS: THIAMINE HCL 100 MG TAB PO SCH (09:01)
[2018-04-19] MEDS: FOLIC ACID 1 MG TAB PO SCH (09:02)
[2018-04-19] MEDS: DULoxetine HCl DR 30 MG CAP PO SCH (09:02)
[2018-04-19] MEDS: VERAPAMIL HCL 80 MG TAB PO SCH ×3 (09:02→17:45)
[2018-04-19] MEDS: DULoxetine HCl DR 60 MG CAP PO SCH (09:02)
[2018-04-19] MEDS: PANTOPRAZOLE SOD 40 MG DELAYED RELEASE TAB PO SCH (09:02)
[2018-04-19] MEDS: REMOVE OLD NICODERM (NICOTINE) PATCH T-DERMAL SCH (09:04)
[2018-04-19] MEDS: NICOTINE 21 MG/24 HR PATCH T-DERMAL SCH (09:04)
[2018-04-19] MEDS ORDERED: RESP: ALBUTEROL 2.5 MG/3 ML NEB (PRN) NEB (10:00)
[2018-04-19] MEDS ORDERED: BENZONATATE 100 MG CAP PO PRN (11:00)
[2018-04-19] MEDS: ACETAMINOPHEN 325 MG TAB PO PRN ×2 (12:02→17:53)
[2018-04-19] MEDS: FERROUS SULFATE 325 MG (65 MG ELEMENTAL IRON) TAB PO SCH ×2 (12:02→17:45)
[2018-04-19] MEDS: predniSONE 20 MG TAB PO SCH (12:43)
[2018-04-19] MEDS: BUDESONIDE-FORMOTEROL 160/4.5 MCG INHALER INH SCH ×2 (12:44→21:11)
[2018-04-19 18:04] VITALS: BP 128/77; PULSE 88; RESP 16; TEMP 98.1; O2SAT 94
[2018-04-19] MEDS: metroNIDAZOLE 0.75% VAG GEL 70 GM TUBE VAGINAL SCH (21:00)
[2018-04-19 21:55] VITALS: O2SAT 93
[2018-04-20] MEDS: RESP: ALBUTEROL 2.5 MG/IPRATROPIUM 0.5 MG NEB (SCH) NEB ×5 (01:18→16:02)
[2018-04-20 06:00] VITALS: BP 127/76; PULSE 106; RESP 14; TEMP 97.7; O2SAT 95
--- NOTE | 2018-04-20 08:25 | HHI.DS ---
Psychiatry Discharge Summary Inpatient Psychiatric care?: Yes Advance Directive: No Reason Not Provided: Due to Patient Condition Mental Health AdvanceDirective: No Health Care Proxy: No Admission Admission Date April 17, 2018 at 08:22 Admission Diagnosis: (1) Adjustment disorder with depressed mood ICD Code: F43.21 - Adjustment disorder with depressed mood (2) Alcohol dependence ICD Code: F10.20 - Alcohol dependence, uncomplicated Brief History Pt is a 48YOWF with a hx of alcohol dependence, anxiety and depression who was admitted under a BA to [facility] due suicidal threats. Pt was seen and discussed with staff. Chart reviewed. Pt reports that she drank a pint of liquor and a six packs. She states that she told her family that she wanted to and to drink bleach to kill self. She states that she was just drunk but does admit to increased depression and anxiety since stopping zoloft abruptly due to concerns of weight gain. She minimizes alcohol use. Staff report that family expressed concern about pt's poor impulse control and out of control alcohol use. Pt denies psychosis or mckenzie. Staff report that pt has been withdrawn on unit. Collateral info from family documented in EHR states that pt actually tried to drink bleach and has tried in recent past to drink household chemicals Past psychiatric history: The patient reports a history of anxiety and depression. She is not under the care of a psychiatrist. Was prescribed zoloft which was helpful by PCP but stopped taking. She reports that she was psychiatrically admitted several years ago. She denies a history of suicide attempts. Family history: The patient denies a family history of mental illness or suicide. Chemical dependency history: The patient reports that she typically drinks a 4 pack of beer. She drank a pint of liquor in addition last night. She does not view her substance use as problematic. She believes that she can stop drinking whenever she wants but simply chooses not to. She denies any other substance use. Social history: The patient has 11 grade education. She is disabled. She lives with her daughter. She has 2 other children. She was 4 years ago. No reported access to guns or firearms. Tobacco Use In Past 30 Days: 5 or More Cigarettes/Day Alcohol Use: 4 or More Times Per Week Hospital Course Patient was admitted to a locked, inpatient psychiatric unit. A general medical consultation was obtained. Appropriate precautions were in place throughout patient's hospital stay. Patient was seen and examined on the unit by psychiatry and also visited by counselor. Psychotropic medications were adjusted. Patient tolerated medications well without side effects. There was no evidence of any suicidality or homicidality on the inpatient unit. There was no evidence of self-care deficit. Patient was no behavioral problem on the inpatient unit, and she was compliant with medications. Collateral information was obtained from the patient's sister and daughter. Family has completed a [place] act in order to get patient help for her alcohol use issues. On the day of discharge: Patient seen and examined with nurse. Chart reviewed. Case discussed with nursing staff. No behavioral issues noted overnight. Case discussed in treatment team. On my examination today, the patient is requesting discharge from the inpatient psychiatric unit today. She denies any suicidal or homicidal ideation, intent or plan and contracts for safety. Affect is euthymic, and the patient reports that her mood is improved versus admission. I can elicit no ongoing depressive or hypomanic/manic symptoms. She slept well overnight. She denies any audiovisual hallucinations. I can elicit no delusional beliefs. There is no evidence of impairment in reality construction. She denies side effects from medications. No physical complaints. Spoke with patient's daughter on day of discharge who is comfortable accepting the patient home today. I have recommended that daughter secure the home environment of potential means of harm to self or others including but not limited to guns, knives, medications. I have recommended that daughter secure and dispense medications prescribed on discharge today. I have educated daughter regarding mechanisms to have the patient brought back for further psychiatric treatment if needed including Lazo act and ex parte. I have spoken with the mid-level provider for the hospitalist service on the day of discharge, and hospitalist team is comfortable with the patient being discharged today. They recommend echocardiogram and Holter monitor on discharge , which I have ordered. They also recommend some degree of anticoagulation. Until the A. fib diagnosis can be confirmed, I will order the aspirin that they recommend and defer initiation of more potent anticoagulation to primary care doctor in follow-up. Suicide and violence risk assessment on day of discharge both suggest lower imminent risk from mental illness as defined under the Lazo act, and the patient's level of function is adequate for outpatient care. At this point, the patient has achieved maximal benefit from this inpatient psychiatric hospital stay. She will be discharged today with psychiatric follow -up as arranged by counselor. Patient is also to follow up with primary care. I have counseled the patient to abstain from substances of abuse and have recommended chemical dependency evaluation and treatment on an outpatient basis. I have counseled the patient regarding warning signs for need to return to the psychiatric emergency room as part of a general safety plan. Results Blood Pressure 127 / 76 Vital Signs Date Time Temp Pulse Resp B/P (MAP) Pulse Ox O2 Delivery O2 Flow Rate FiO2 04/20/18 06:00 97.7 106 14 127/76 (93) 95 04/19/18 21:55 Nasal Cannula 2.00 Laboratory Tests Test 04/18/18 07:10 Hemoglobin 9.4 GM/DL (11.6-15.3) Hematocrit 33.3 % (35.0-46.0) Mean Corpuscular Volume 66.9 FL (80.0-100.0) Mean Corpuscular Hemoglobin 18.8 PG (27.0-34.0) Mean Corpuscular Hemoglobin Concent 28.1 % (32.0-36.0) Red Cell Distribution Width 21.3 % (11.6-17.2) Blood Urea Nitrogen 4 MG/DL (7-18) Albumin 2.9 GM/DL (3.4-5.0) Aspartate Amino Transf (AST/SGOT) 38 U/L (15-37) Sodium Level 134 MEQ/L (136-145) Estimat Glomerular Filtration Rate 75 ML/MIN (>89) Iron Level 14 MCG/DL (50-170) Total Iron Binding Capacity 571 MCG/DL (250-450) Percent Iron Saturation 2.5 % (20-50) Cholesterol Level 223 MG/DL (120-200) HDL Cholesterol 128.4 MG/DL (40.0-60.0) Laboratory Results Test 04/18/18 07:10 Cholesterol Level 223 MG/DL (120-200) HDL Cholesterol 128.4 MG/DL (40.0-60.0) Hemoglobin A1c 5.6 % (4.3-6.0) LDL Cholesterol 80 MG/DL (0-99) Triglycerides Level 75 MG/DL (42-150) Summary of Procedures None done Imaging None done Pending results at discharge: No Medications # of Antipsychotic meds at D/C: 1 Approp Antipsych med options 1 - Minimum of three failed multiple trials of monotherapy. 2 - Documented plan to taper to monotherapy due to previous use of multiple meds OR cross-taper in progress at D/C. 3 - Documentation of augmentation of Clozapine. 4 - Justification other than those listed in allowable values 1-3, document here : Discharge Discharge Date: April 20, 2018 Discharge Diagnosis: (1) Adjustment disorder with depressed mood Diagnosis: Principal (Resolved) ICD Code: F43.21 - Adjustment disorder with depressed mood (2) Alcohol dependence Diagnosis: Secondary (Counseled to quit) ICD Code: F10.20 - Alcohol dependence, uncomplicated Pt Condition on Discharge: Stable Discharge Disposition: Discharge Home Discharge Instructions Diet Instructions: As Tolerated, No Restrictions Activities you can perform: Weight Bearing as Ramakrishna Scheduled Appointment: As per counselors notes New Orders: CBC WITH DIFF - 2-3 Days COMP MET PROF (CMP) - 2-3 Days ECHO 2D W/DOPP ROUTN - 2-3 Days HOLTER MONITOR - 04/21/18 New Medications: Aspirin (Aspirin) 325 Mg Tab 325 MG PO DAILY for Health for 15 Days, #15 TAB [address] (Cymbalta DR) 30 Mg Capdr 90 MG PO DAILY for Mental Health for 15 Days, #45 CAP 1 Refill Benzonatate (Tessalon Perles) 100 Mg Cap 200 MG PO TID PRN for COUGH for 15 Days, CAP 1 Refill Ferrous Sulfate (Ferosul) 325 Mg (65 Mg Iron) Tablet 325 MG PO BID@12,17 for Anemia for 15 Days, TAB 1 Refill Folic Acid (Folic Acid) 1 Mg Tablet 1 MG PO DAILY for Nutritional Supplement for 15 Days, #15 TAB 1 Refill Olanzapine (Olanzapine) 15 Mg Tab 15 MG PO HS for Mental Health for 15 Days, TAB 1 Refill Prednisone (Prednisone) 20 Mg Tab 40 MG PO DAILY for Health for 3 Days, #6 TAB 0 Refills Thiamine HCl (Gnp Vitamin B-1) 100 Mg Tab 100 MG PO DAILY for Nutritional Supplement for 15 Days, #15 TAB 1 Refill [Budeson-Formot 160-4.5 Mcg Inh] () 60 PUFF AERO 1 PUFF INH Q12HR for Health for 15 Days, 1 Refill Continued Medications: Albuterol 18 GM Inh (Ventolin Hfa 18 GM Inh) 90 Mcg/Act Aer 2 PUFF INH Q4H PRN for SHORTNESS OF BREATH, #1 INHALER 0 Refills Albuterol Neb (Albuterol Neb) 2.5 Mg/3 Ml Neb 2.5 MG NEB Q4HR NEB PRN for SHORTNESS OF BREATH, #60 NEBULE 0 Refills Metronidazole Vaginal Gel (Metrogel Vaginal Gel) 0.75 % Gel 1 APPL VAGINAL HS for Infection for 5 Days, #1 TUBE 0 Refills Omeprazole (Omeprazole) 40 Mg Cap 40 MG PO DAILY, #30 CAP 0 Refills Ondansetron (Zofran) 4 Mg Tab 4 MG PO Q6HR PRN for NAUSEA OR VOMITING, #28 TAB 0 Refills Verapamil (Verapamil) 80 Mg Tab 80 MG PO TID, #60 TAB 0 Refills [oxygen @2LPM via NC ] () DIRECTED PRN for SOB/WHEEZING Discontinued Medications: Albuterol 6.7 GM Inh (Proventil Hfa 6.7 GM Inh) 90 Mcg/Act Aer 2 PUFF INH Q4-6H PRN for SHORTNESS OF BREATH, #1 INHALER 0 Refills Dextromethorphan (Robitussin Lingering Cold) 15 Mg Cap 30 MG PO Q8H PRN for COUGH for 5 Days, #30 CAP [address] (Cymbalta DR) 60 Mg Capdr 80 MG PO DAILY, #30 CAP 0 Refills Olanzapine (Olanzapine) 5 Mg Tab 10 MG PO HS, #30 TAB 0 Refills Ondansetron Odt (Zofran Odt) 4 Mg Tab 4 MG SL Q6HR PRN for Nausea/Vomiting, #6 TAB 0 Refills Prednisone (Prednisone) 20 Mg Tab 40 MG PO DAILY for 5 Days, #10 TAB 0 Refills Take 40 mg (2 tablets) daily for 5 days Discharge Time > 30 minutes Mental Status Examination Appearance: Appropriate Consciousness: Alert Orientation: x4 Motor Activity: Other (No motor abnormalities noted. No signs of withdrawal noted.) Speech: Unremarkable Language: Adequate Fund of Knowledge: Adequate Attention and Concentration: Adequate Memory: Unremarkable (Grossly intact on clinical exam) Mood: Appropriate Affect: Appropriate Thought Process & Associations: Intact, Logical, Linear Thought Content: Appropriate Hallucination Type: None Delusion Type: None Suicidal Ideation: No Suicidal Plan: No Suicidal Intention: No Homicidal Ideation: No Homicidal Plan: No Homicidal Intention: No Mental Status Exam Remarks Insight and judgment are generally fair but likely poor with respect to substance use issues Discharge/Advance Care Plan Health Problems: (1) Adjustment disorder with depressed mood (2) Alcohol dependence Goals to promote your health * To prevent worsening of your condition and complications * To maintain your health at the optimal level Directions to meet your goals Take your medications as prescribed Follow your dietary instruction Follow activity as directed Keep your appointments as scheduled Take your immunizations and boosters as scheduled If your symptoms worsen call your PCP, if no PCP go to Urgent Care Center or Emergency Room For 22/06 questions related to your inpatient stay or results of tests pending at discharge, please contact Dr. Jamie Burnett at Smoking is Dangerous to Your Health. Avoid second hand smoking Jamie Burnett MD April 20, 2018 08:25
[2018-04-20 08:57] VITALS: O2SAT 100
[2018-04-20] MEDS: FOLIC ACID 1 MG TAB PO SCH (09:07)
[2018-04-20] MEDS: DULoxetine HCl DR 30 MG CAP PO SCH (09:07)
[2018-04-20] MEDS: predniSONE 20 MG TAB PO SCH (09:07)
[2018-04-20] MEDS: PANTOPRAZOLE SOD 40 MG DELAYED RELEASE TAB PO SCH (09:08)
[2018-04-20] MEDS: BUDESONIDE-FORMOTEROL 160/4.5 MCG INHALER INH SCH (09:08)
[2018-04-20] MEDS: THIAMINE HCL 100 MG TAB PO SCH (09:08)
[2018-04-20] MEDS: VERAPAMIL HCL 80 MG TAB PO SCH ×2 (09:08→12:52)
[2018-04-20] MEDS: DULoxetine HCl DR 60 MG CAP PO SCH (09:08)
--- NOTE | 2018-04-20 09:10 | PD.TTN ---
Patient Problems 1. Discharge planning 2. Medication compliance 3. Knowledge deficit 4. Lack of coping skills Progress Toward Goals Provider Present: Dr. Efra Burnett Provider Input: pt to be discharged today, home with daughter, followed by out-pt services Psychiatric Counselors Present: Fang Leong LCSW, Krista Francis, [facility], Papi Suresh Jr., [facility] Psych Therapist Input: d/c plans to be completed. Group Spec/RT/OT/CHOWDHURY Present: Mirna Betancourt OT, [place] Olivera Group Spec/RT/OT/CHOWDHURY Input: Pt has not been attending groups, she isolates and refuses to attend. Occupational Therapist Input: Pt has not fully endorsed/admitted her substance use/abuse, she remains at least somewhat in denial. Discharge Plan Home with daughter and out-patient services in place. Documentation Scribe: mirna betancourt ms, otr Mirna Betancourt OTR April 20, 2018 09:10
[2018-04-20] MEDS: NICOTINE 21 MG/24 HR PATCH T-DERMAL SCH (09:11)
--- NOTE | 2018-04-20 11:34 | HHI.PR ---
Subjective Remarks Patient offers no concerns/complaints wanting to be DC'd Objective Vitals Vital Signs Date Time Temp Pulse Resp B/P (MAP) Pulse Ox O2 Delivery O2 Flow Rate FiO2 04/20/18 08:57 100 Nasal Cannula 2.00 04/20/18 06:00 97.7 106 14 127/76 (93) 95 04/19/18 21:55 93 Nasal Cannula 2.00 04/19/18 18:04 98.1 88 16 128/77 (94) 94 I/O 04/19/18 04/19/18 04/19/18 04/20/18 04/20/18 04/20/18 07:00 15:00 23:00 07:00 15:00 23:00 Intake Total 720 ml 960 ml 240 ml 360 ml Balance 720 ml 960 ml 240 ml 360 ml Intake Oral 720 ml 960 ml 240 ml 360 ml # Voids 3 # Bowel Movements 1 Result Diagram: 04/18/18 0710 04/18/18 0710 Other Results Laboratory Tests Test 04/18/18 07:10 White Blood Count 4.9 TH/MM3 Red Blood Count 4.98 MIL/MM3 Hemoglobin 9.4 GM/DL Hematocrit 33.3 % Mean Corpuscular Volume 66.9 FL Mean Corpuscular Hemoglobin 18.8 PG Mean Corpuscular Hemoglobin Concent 28.1 % Red Cell Distribution Width 21.3 % Platelet Count 194 TH/MM3 Mean Platelet Volume 8.6 FL Neutrophils (%) (Auto) 66.6 % Lymphocytes (%) (Auto) 24.1 % Monocytes (%) (Auto) 7.9 % Eosinophils (%) (Auto) 0.5 % Basophils (%) (Auto) 0.9 % Neutrophils # (Auto) 3.2 TH/MM3 Lymphocytes # (Auto) 1.2 TH/MM3 Monocytes # (Auto) 0.4 TH/MM3 Eosinophils # (Auto) 0.0 TH/MM3 Basophils # (Auto) 0.0 TH/MM3 CBC Comment DIFF FINAL Differential Comment Hematology Comments Blood Urea Nitrogen 4 MG/DL Creatinine 0.82 MG/DL Random Glucose 104 MG/DL Total Protein 7.2 GM/DL Albumin 2.9 GM/DL Calcium Level 8.8 MG/DL Alkaline Phosphatase 110 U/L Aspartate Amino Transf (AST/SGOT) 38 U/L Alanine Aminotransferase (ALT/SGPT) 25 U/L Total Bilirubin 0.4 MG/DL Sodium Level 134 MEQ/L Potassium Level 3.6 MEQ/L Chloride Level 101 MEQ/L Carbon Dioxide Level 25.0 MEQ/L Anion Gap 8 MEQ/L Estimat Glomerular Filtration Rate 75 ML/MIN Hemoglobin A1c 5.6 % Iron Level 14 MCG/DL Total Iron Binding Capacity 571 MCG/DL Percent Iron Saturation 2.5 % Triglycerides Level 75 MG/DL Cholesterol Level 223 MG/DL LDL Cholesterol 80 MG/DL HDL Cholesterol 128.4 MG/DL Cholesterol/HDL Ratio 1.73 RATIO Objective Remarks GENERAL: This is a well-nourished, well-developed patient, in no apparent distress. CARDIOVASCULAR: Regular rate and rhythm RESPIRATORY: Clear to auscultation. Breath sounds equal bilaterally. GASTROINTESTINAL: Abdomen soft, non-tender, nondistended. Normal active bowel sounds MUSCULOSKELETAL: Extremities without clubbing, cyanosis, or edema. NEURO: Alert & Oriented. Moves all ext x4 A/P Assessment and Plan 48-year-old female with past medical history significant for hypertension, COPD on 3 L nasal cannula at bedtime, CVA with right-sided residual weakness, atrial fibrillation, hypertension, anxiety, depression, tobacco and alcohol abuse who presented to the emergency department on 04/16 under Lazo act for psychiatric evaluation. [facility] consulted to assist with ongoing medical management. Anxiety/depression -Treatment per primary team, greatly appreciated Sinus tachycardia - EKG 03/24 sinus tachycardia, currently in regular rhythm, EKG completed reviewed, normal sinus rhythm. - Patient's nurse called patient's pharmacy, no recent refill of Diltiazem, but patient is on Verapamil. continue verapamil. -Patient reports she has had A fib in the past. -[id number] (HTN 1, CVA 2, female 1)=4% risk. Discussed with patient that anticoagulation is recommended if she indeed had a fib. EKG here and prior EKGs in [facility] [place] reviewed no evidence of atrial fibrillation noted. Requested outpatient medical records to clarify but have not received. -discussed patient with Dr. Katarzyna palomino to patient's reported A Fib and CHADsVASc score of 4 based on patient's reported medical history (reliability questionable). Patient is at 4.8% per year and 6.7% risks of stroke/TIA/ systemic embolism, recommend patient be started on Xarelto 20 mg PO daily, if psych feels that patient is compliant and capable to take anticoagulation, if not recommend aspirin daily. Also recommend patient have 2d echocardiogram to complete work up of atrial fibrillation, this could be done as an outpatient if psych feels patient reliable and competent to follow up. Also recommend Holter monitor to confirm atrial fibrillation Hypertension, controlled History of CVA -Continue monitoring heart rate and blood pressure - LDL 80, HDL 128.4, hemoglobin A1c 5.6 COPD, mildly exacerbated- resolved likely secondary to tobacco abuse -Discussed smoking cessation. Nicotine patch -O2 nasal cannula at bedtime as needed. -Increase cough especially at bedtime, no shortness of breath reported, cough is nonproductive. -Symbicort, she reports being on this at home, duo nebs every 4 hours with as needed's in between as needed, short course of oral prednisone 40 mg 5 days , Tessalon Perles as needed. -Incentive spirometry, in no acute respiratory distress at the moment. Hyponatremia, mild -Likely secondary to EtOH abuse, asymptomatic. -132--> 134 improved, continue to monitor periodically. Microcytic anemia- NIC Mild leukocytosis, resolved - Iron studies reviewed, iron 40, TIBC 571, percent saturation 2.5. -Hemoccult negative - Start PO Fe BID, patient reports heavy menses. -WBC count 11.9--> 4.9 with no neutrophil count. Alcohol dependence -CIWA, seizure precaution -Continue thiamine and folate -Mildly elevated AST at 38, likely secondary to EtOH abuse DVT prophylaxis-encourage ambulation Discussed with patient and nurse. Supervising physician Dottie Orozco April 20, 2018 11:34
[2018-04-20] MEDS: FERROUS SULFATE 325 MG (65 MG ELEMENTAL IRON) TAB PO SCH (12:52)
[2018-04-20] MEDS ORDERED: FOLI1TAB6 PO (13:46)
[2018-04-20] MEDS ORDERED: Budeson-Formot 160-4.5 Mcg Inh INH (13:46)
[2018-04-20] MEDS ORDERED: BENZ100 PO (13:46)
[2018-04-20] MEDS ORDERED: PRED20 PO (13:46)
[2018-04-20] MEDS ORDERED: CYMB30CA PO (13:46)
[2018-04-20] MEDS ORDERED: FERR325T20 PO (13:46)
[2018-04-20] MEDS ORDERED: THIA100 PO (13:46)
[2018-04-20] MEDS ORDERED: OLAN15TA PO (13:46)
[2018-04-20] MEDS ORDERED: ASPI-183 PO (14:34)
== END 2018-04-20 16:15 | disposition home or self-care (01) | DRG 881 ==
LOC: NEPD 21:08 → NEDA 04-17 08:22 → H4EA 04-17 11:45
PROVIDERS: ADMIT Psychiatry & Neurology Psychiatry; ATTEND Psychiatry & Neurology Psychiatry
DX: F43.21 Adjustment disorder with depressed mood (principal); E87.1 Hypo-osmolality and hyponatremia; I10 Essential (primary) hypertension; I69.351 Hemiplegia and hemiparesis following cerebral infarction affecting right dominant side; F10.20 Alcohol dependence, uncomplicated; D50.9 Iron deficiency anemia, unspecified; Z91.14 Patient's other noncompliance with medication regimen; J44.9 Chronic obstructive pulmonary disease, unspecified; Y90.8 Blood alcohol level of 240 mg/100 ml or more; I48.91 Unspecified atrial fibrillation; F41.9 Anxiety disorder, unspecified; F17.210 Nicotine dependence, cigarettes, uncomplicated; E66.3 Overweight; Z68.32 Body mass index [BMI] 32.0-32.9, adult
CPT/HCPCS: 80053; 80061; 80307; 81001; 82272; 83036; 83540; 83550; 84443; 85025; 93005; 94150; 94640; 94664; 99285; J7512; J7613; J7626